=== PATIENT | male | born 1950 | race Caucasian/White ===

== ENCOUNTER → 2016-05-27 | Outpatient (CLI) | payer OTHER ==
[2016-05-27 13:34] LABS: ALT/SGPT 28 U/L (12-78); AST/SGOT 15 U/L (15-37); BLOOD UREA NITROGEN 19 mg/dl (7-18); CALCIUM 9.4 mg/dl (8.5-10.1); CARBON DIOXIDE 28 mmol/L (21-32); CHLORIDE 102 mmol/L (98-107); CREATININE 0.95 mg/dl (0.60-1.40); GLUCOSE 236 mg/dl (70-99); POTASSIUM 4.3 mmol/L (3.5-5.1); SODIUM 140 mmol/L (136-145)
[2016-05-27 13:36] LABS: CHOLESTEROL 135 mg/dl (0-200); HDL CHOLESTEROL 45 mg/dl; LDL CHOLESTEROL CALCULATED 58 mg/dl; TRIGLYCERIDES 159 mg/dl (0-150); VERY LOW DENSITY LIPOPROT CALC 32 mg/dl
[2016-05-27 13:41] LABS: ESTIMATED AVERAGE GLUCOSE 214 mg/dl; HA1C FLAG Normal (Normal)
[2016-05-27 13:43] LABS: RATIO 7.7 mcg/mg (0-30.0)
== END ==
LOC: C.LABPVFM 08:33
PROVIDERS: ATTEND Internal Medicine
DX: E11.9 Type 2 diabetes mellitus without complications (principal); E78.5 Hyperlipidemia, unspecified

== ENCOUNTER → 2016-09-06 | Outpatient (CLI) | payer OTHER ==
[2016-09-06 13:35] LABS: ESTIMATED AVERAGE GLUCOSE 160 mg/dl; HA1C FLAG Normal (Normal)
[2016-09-06 13:50] LABS: BLOOD UREA NITROGEN 16 mg/dl (7-18); BUN/CREATININE RATIO 15.5 (10-20); CARBON DIOXIDE 29 mmol/L (21-32); CHLORIDE 104 mmol/L (98-107); GLUCOSE 195 mg/dl (70-99); POTASSIUM 4.6 mmol/L (3.5-5.1); SODIUM 140 mmol/L (136-145)
[2016-09-06 13:56] LABS: CALCIUM 10.1 mg/dl (8.5-10.1)
== END ==
LOC: C.LABPVFM 10:28
PROVIDERS: ATTEND Nurse Practitioner Family
DX: E11.65 Type 2 diabetes mellitus with hyperglycemia (principal)

== ENCOUNTER → 2016-12-26 | Outpatient (CLI) | payer OTHER ==
[2016-12-26 12:58] LABS: ESTIMATED AVERAGE GLUCOSE 140 mg/dl; HA1C FLAG Normal (Normal)
[2016-12-26 13:55] LABS: ALT/SGPT 28 U/L (12-78); AST/SGOT 15 U/L (15-37); BLOOD UREA NITROGEN 18 mg/dl (7-18); BUN/CREATININE RATIO 19.5 (10-20); CALCIUM 9.4 mg/dl (8.5-10.1); CARBON DIOXIDE 28 mmol/L (21-32); CHLORIDE 105 mmol/L (98-107); CHOLESTEROL 125 mg/dl (0-200); CREATININE 0.91 mg/dl (0.60-1.40); GLUCOSE 157 mg/dl (70-99); POTASSIUM 4.2 mmol/L (3.5-5.1); SODIUM 139 mmol/L (136-145); TRIGLYCERIDES 137 mg/dl (0-150); VERY LOW DENSITY LIPOPROT CALC 27 mg/dl
[2016-12-26 13:58] LABS: CHOLESTEROL/HDL RATIO 2.8; HDL CHOLESTEROL 44 mg/dl; LDL CHOLESTEROL CALCULATED 54 mg/dl
== END | disposition home or self-care (01) ==
LOC: C.LABPVFM 09:21
PROVIDERS: ATTEND Internal Medicine
DX: E78.5 Hyperlipidemia, unspecified (principal); I10 Essential (primary) hypertension; E11.9 Type 2 diabetes mellitus without complications

== ENCOUNTER → 2017-05-21 | Outpatient (CLI) | payer OTHER ==
[2017-05-21 12:58] LABS: HEMOGLOBIN A1C 6.7 % (4.5-5.6)
== END | disposition home or self-care (01) ==
LOC: C.LABPVFM 08:58
PROVIDERS: ATTEND Nurse Practitioner Family
DX: E11.9 Type 2 diabetes mellitus without complications (principal)

== ENCOUNTER 2018-08-30 16:06 | Inpatient (IN) ==
[2018-08-30] MEDS ORDERED: SODIUM CHLORIDE 0.9% 1000ML 1,000 ML IV ONE (16:18)
--- NOTE | 2018-08-30 16:30 | XRay Report ---
XR chest 1V portable CLINICAL HISTORY: Leukocytosis. COMPARISON STUDY: No previous studies for comparison. FINDINGS: Moderate elevation of the right hemidiaphragm is noted. Right basilar opacity favors atelec tasis. Gas-filled loops of bowel projecting of the right hemidiaphragm are noted. There is no evidenc e for pulmonary edema. Cardiac size is normal. There is no pneumothorax or pleural effusion. IMPRESSION: 1. No acute cardiopulmonary findings. 2. Moderate elevation of the right hemidiaphragm with right basilar opacity that favors atelectasis. Electronically signed by: Rufino Peñaloza M.D. 08/30/2018 4:29 PM
[2018-08-30 16:54] LABS: Hematocrit (blood only) 39.9 % (42-52); Hemoglobin 14.2 g/dL (14.0-18.0); Mean Corpuscular Hgb Conc 35.6 g/dL (32-36); Mean Corpuscular Volume 89.3 fL (80-100); Mean Platelet Volume 9.6 fL (7.4-10.4); Platelet Count 428 K/uL (130-400); RDW Coefficient of Variation 13.9 % (11.5-14.5); RDW Standard Deviation 45.3 fL (36.4-46.3); Red Blood Count 4.47 M/uL (4.7-6.1); White Blood Count 22.18 K/uL (4.8-10.8)
[2018-08-30 17:13] LABS: Albumin Level 3.7 gm/dl (3.4-5.0); BUN Creatinine Ratio 14.9 (10-20); Calcium 9.3 mg/dl (8.5-10.1); Creatinine Clr Calc Pharmacy 87.2 ml/min; Est GFR (African American) 91.9; Est GFR (Non-African American) 79.3; Potassium 4.4 mmol/L (3.5-5.1)
[2018-08-30 17:14] LABS: INR 1.1 (0.9-1.1); Prothrombin Time 10.8 Seconds (9.0-12.0)
[2018-08-30 17:15] LABS: Bilirubin,Total 0.6 mg/dl (0.2-1); Globulin 3.6 gm/dl (2.5-4.0); Total Protein 7.3 gm/dl (6.4-8.2)
[2018-08-30] MEDS ORDERED: IOVERSOL 100ml IV PRN (17:26)
[2018-08-30 17:41] LABS: Basophils # (auto) 0.02 K/uL (0-0.2); Basophils % (auto) 0.1 %; Eosinophils # (auto) 0.03 K/uL (0-0.5); Eosinophils % (auto) 0.1 %; Immature Granulocytes # (auto) 0.14 K/uL (0.00-0.02); Immature Granulocytes % (auto) 0.6 %; Lymphocytes # (auto) 13.88 K/uL (1.2-3.4); Lymphocytes % (auto) 62.6 %; Monocytes # (auto) 1.41 K/uL (0.11-0.59); Monocytes % (auto) 6.4 %; Neutrophils % (auto) 30.2 %
--- NOTE | 2018-08-30 17:42 | CT Scan Report ---
CT soft tissue neck w con CLINICAL HISTORY: 67 years-old Male presenting with ? abscess r lower jaw. recent ct wbc 22k jaw pain . TECHNIQUE: Multidetector CT of the neck was performed after the administration of intravenous contras t. IV contrast: 94 mL of Optiray 320. One or more dose lowering techniques were used consistent with the principles of ALARA (as low as reasonably achievable), including automatic exposure control, mA o r kV adjustment to individual patient size, and/or use of iterative reconstruction. COMPARISON: 08/23/2018. CT DOSE (mGy.cm): The estimated cumulative dose is 578.09 mGy.cm. FINDINGS: Dermatology Procedural Physician topogram: Unremarkable. Numerous mandibular and maxillary teeth are absent prominent dental caries in the residual right sylvester ibular canine. Dental caries also noted elsewhere most prominently at the right maxillary molar. Priyanka apical lucency may be present at the right maxillary molar versus bony dehiscence of the right maxill lo sinus floor. Associated mild mucosal thickening in the right maxillary sinus as on prior exam. No cortical erosion of the mandible or maxilla. No significant hyperemia of the buccal mucosa. No evide nce of abscess. Superficial soft tissues of the face within normal limits. Parotid, submandibular, an d thyroid glands normal. Scattered cervical lymph nodes measuring up to 1.6 cm in axial long axis on the right and 1.8 cm on the left. This is similar to prior exam and has allegedly enlarged by CT size criteria. Vasculature patent. Mild atherosclerosis. Limited intracranial evaluation demonstrates nor mal brain parenchyma and atherosclerosis of the cavernous segments of internal carotid arteries. Orbi ts normal. Skull base intact. Degenerative changes of the cervical spine. Lung apices clear. No suspi cious nodular soft tissue enhancement along the aerodigestive tract, which is patent. IMPRESSION: 1. No odontogenic abscess. No buccal mucosal hyperemia. 2. Numerous dental extractions with dental caries of residual teeth most prominently in the right ma ndibular canine and right maxillary molar. 3. Bilateral cervical lymphadenopathy. This could be reactive though an underlying lymphoproliferati ve disease or metastatic disease cannot be excluded. Follow-up is advised. Electronically signed by: Braden Ervin M.D. 08/30/2018 5:41 PM
[2018-08-30 18:53] LABS: Appearance Urine Clear (Clear); Bilirubin Urine Negative (Negative); Blood Urine Negative (Negative); Color Urine Yellow; Glucose Urine UA Negative (Negative); Ketones Urine Trace (Negative); Leukocyte Esterase Urine Negative (Negative); Nitrite Urine Negative (Negative); Protein Urine Negative (Negative); Specific Gravity Urine 1.021 (1.000-1.030); Urobilinogen Urine Negative (Negative); pH Urine 5.5 (4.5-7.5)
[2018-08-30] MEDS ORDERED: cefTRIAXone SODIUM 2,000 MG in DEXTROSE 5% 50 ML IV STA (18:59)
[2018-08-30] MEDS ORDERED: metroNIDAZOLE 500 MG/100 ML BAG IV STA (20:33)
--- NOTE | 2018-08-30 22:08 | History & Physical Report ---
Date of Service August 30, 2018 Assessment & Plan (1) Bacteremia: 67-year-old male with past medical history of diabetes, hypertension, malignant melanoma presents with positive blood cultures Bacteremia in the setting of dental caries Cultures grew coag negative staph, presents with white count, has been on clindamycin for 1 week Patient is hemodynamically stable, negative lactate Dental caries are likely source Treating with IV Rocephin/Flagyl. Patient has a penicillin allergy. 2 large-bore IVs, received 1 L bolus in the ED, run normal saline at 125 cc/h Avoid antihypertensives for now Dental caries, thrush Would recommend evaluation by oral surgeon Keep patient n.p.o., would recommend soft food diet Magic mouthwash and nystatin swish and swallow Diabetes Continue insulin Hold metformin Hypertension Hold home lisinopril, hydrochlorothiazide, atenolol Hyperlipidemia Hold simvastatin History of malignant melanoma Follow-up bilateral cervical lymphadenopathy seen on neck CT, reactive versus metastasis? DVT prophylaxis Holding anticoagulation in case of oral surgery SCDs/ambulate CODE STATUS Full (2) Diabetes: (3) Hyperlipidemia: (4) HTN (hypertension): (5) Personal history of malignant melanoma of skin: (6) Acute gingivitis: History of Present Illness Primary Care Provider: Cristofer oRck MD 67-year-old male history of hypertension, hyperlipidemia, diabetes and malignant melanoma presents from his primary care office with positive blood cultures. Patient was seen in our ED last 08/23/2018 for concern for sepsis related to dental abscesses. Patient was discharged on clindamycin. Blood cultures were obtained prior to leaving the ED. Patient's blood cultures grew coag negative staph x2 on 08/30/2018. Patient states that he has been feeling quite good over the past week since being started on the antibiotics. He has been using Magic mouthwash and nystatin swish and swallow for oral lesions. He endorses a soft foods diet. Reports less oral pain. Today he does not have any fevers, chills or fatigue. He denies any shortness of breath, cough or dysuria. Patient denies any wounds on his feet. Patient reports normal bowel movement. Constitutional; no fevers, chills, night sweats CV; no chest pain, no palpitations, no shortness of breath Abdomen; no abdominal pain, no nausea/vomiting/diarrhea ; no dysuria Skin; no wounds Allergies Allergy/AdvReac Type Severity Reaction Status Date / Time Penicillins Allergy Hives Verified 08/30/18 17:05 grass pollen AdvReac Watery Eye Verified 08/30/18 17:05 dust AdvReac Watery Eye Uncoded 08/30/18 17:05 Home Medications Home Medications Medication Instructions Recorded Confirmed Type ascorbic acid (vitamin C) 500 mg 2 cap PO QAM cap 08/23/18 08/30/18 History capsule atenolol 100 mg tablet 100 mg PO QAM #90 tab 08/23/18 08/30/18 History calcium carbonate [Tums] 600 mg PO HS 08/23/18 08/30/18 History cholecalciferol (vitamin D3) 1,000 unit PO QAM 08/23/18 08/30/18 History [Vitamin D3] clindamycin HCl 300 mg PO TID 10 Days #30 cap 08/23/18 08/30/18 Rx cyanocobalamin (vit B-12) 1,000 100 mcg PO QAM tab 08/23/18 08/30/18 History mcg tablet glimepiride 1 mg tablet 2 mg PO HS #270 tab 08/23/18 08/30/18 History hydrochlorothiazide 25 mg tablet 25 mg PO QAM #90 tab 08/23/18 08/30/18 History insulin degludec (U-100) 100 10 unit SUBCUT HS #1 ml 08/23/18 08/30/18 History unit/mL (3 mL) subcutaneous pen lisinopril 40 mg tablet 40 mg PO QAM #90 tab 08/23/18 08/30/18 History metformin 1,000 mg tablet 1,000 mg PO BIDM #180 tab 08/23/18 08/30/18 History multivitamin tablet 1 tab PO QAM 08/23/18 08/30/18 History simvastatin 10 mg tablet 10 mg PO HS #90 tab 08/23/18 08/30/18 History nystatin 100,000 unit/mL oral 1 ml PO QID #250 ml 08/26/18 08/30/18 Rx suspension acetaminophen [Tylenol Extra 1,000 mg PO TID 08/30/18 08/30/18 History Strength] Past Med/Surg History Medical History Melanoma Diabetes Surgical History No pertinent past surgical history Family History Other Family history non-contributory Social History Preferred Language: Angolan Communication Ability: Effective Sr. Logistics Analyst Required: No Beliefs That Will Affect Care: Congregation Congregation Beliefs: Mennonite marital status: Current Living Situation: Spouse and Family current occupational status: retired Other Information That Helps Us Care for You: No Feels Safe at Home: Yes Safety Concerns: Feels Safe At This Time Smoking Status: Never smoker Do You Dip or Chew Tobacco: No Hx Alcohol Use: No Hx Substance Use: No Review of Systems Review of Systems: All systems reviewed & are unremarkable except as noted in HPI & below Physical Exam Constitutional: WD/WN, vitals as above Eyes: PERRL, conjunctivae normal, anicteric sclerae ENMT: Nose: no external nose abnormality, no nasal mucous membrane abnormality and no septum abnormality Poor dentition, numerous missing teeth, visible caries, gums are red beefy and inflamed Neck: trachea midline, no thyromegaly Respiratory: normal respiratory effort, lungs clear to auscultation Cardiovascular: RRR, no murmur, no edema Gastrointestinal (Abdomen): normal bowel sounds, soft, nontender, no hepatosplenomegaly Musculoskeletal: no cyanosis or clubbing, extremities motor strength 5/5 Skin: no rashes, warm and dry Neurologic: PERRL, EOMI, accommodation nl, no face palsy, no dysarthria Psychiatric: A+Ox3, euthymic affect Results & Data Vital Signs (Past 12 Hours) Vital Signs Temp Pulse Resp BP BP Pulse Ox 08/30/18 20:31 66 20 151/92 H 94 08/30/18 20:30 61 18 93 08/30/18 20:01 60 14 97 08/30/18 20:00 60 17 124/74 94 08/30/18 19:42 64 14 96 08/30/18 19:01 61 16 136/71 96 08/30/18 19:00 57 L 16 96 08/30/18 18:43 56 L 15 97 08/30/18 18:42 57 L 15 147/80 H 97 08/30/18 18:41 56 L 19 06/14/19 18:30 64 16 167/107 H 96 08/30/18 18:06 62 15 146/89 H 96 08/30/18 18:02 82 14 08/30/18 18:01 78 17 08/30/18 18:00 77 17 08/30/18 17:42 58 L 12 96 08/30/18 17:16 56 L 17 08/30/18 17:15 63 15 152/91 H 08/30/18 17:00 58 L 19 152/91 H 08/30/18 16:31 59 L 14 97 08/30/18 16:30 58 L 17 131/88 97 08/30/18 16:29 57 L 13 97 08/30/18 16:24 59 L 17 161/90 H 97 08/30/18 16:23 161/90 H 97 08/30/18 16:18 56 L 20 98 08/30/18 16:10 37 C 74 20 142/84 H 100 Code Status & VTE Plan Code Status full VTE Prophylaxis Plan VTE Prophylaxis will be ordered: Yes Supervising Physician Co-Signing Physician Notes Attending addendum: I have physically seen this patient, have supervised the medical residents activities, and agree with the H&P unless as otherwise noted. Assessment and Plan: Coag negative staph bacteremia in 2/2 cultures from 08/26/18- Significantly abnormal dentition/several teeth removed/remaining teeth infected- Received ceftriaxone IV and Flagyl IV in the ED. (Has a penicillin allergy) Bacteria from dental caries would more commonly be strep mutans, but no other obvious source of infection noted. Concern regarding possibility of endocarditis. Order a complete echocardiogram. Patient is not been able to find a dentist or oral surgeon locally. There was discussed with he and his family that he will likely need to go to [facility] to find an oral surgeon participating with his insurance. Thrush- Magic mouthwash and nystatin swish and swallow. Remaining orders and notations as noted. Resident Activity Tracking Resident Involvement: Resident Care Provided Care Provided: Adult Hospital Medicine
--- NOTE | 2018-08-30 22:43 | Emergency Department Note ---
Entered by Salena Beasley acting as a scribe for Forrest Lu DO History of Present Illness General Chief complaint: Referred by Doctor Stated complaint: SODIUN LOW, WHITE BLOOD CELLS HIGH Source: patient and old records reviewed Mode of arrival: wheelchair Limitations: no limitations History of Present Illness Provider complaint: Abnormal labs Onset (ago): hour(s) (today) Pain Consistency: + other (episode) Quality: + other (high white blood cell count, hypokalemia) Relieved By: + none Exacerbated By: + none Associated symptoms: + other (Additional symptoms: right lower jaw soreness. Denies: diarrhea, open sores); no cough, no headaches, no nausea/vomiting and no weakness The patient is a 67 year old male with a history of melanoma and diabetes who presents to the Emergency Room with complaints of an episode of abnormal labs occurring today. The patient reports that he saw Dr. Rock 4 days ago and had blood work performed today. He states that he was told that his white blood cell count was high and that his sodium level was low. He notes that he was subsequently referred to the ED. The patient currently complains of soreness in his right lower jaw, for which he was in the ED a week ago and has been taking Nystatin, Clindamycin, and Tylenol. He states that his jaw soreness has been improving over the past week. He denies any other symptoms, including cough, headache, nausea, vomiting, diarrhea, weakness, and open sores. Per the patient's old records, the patient's neck CT on July 23 showed a large cyst and a large mastoid molar. Home Medications Home Medications Medication Instructions Recorded Confirmed Type ascorbic acid (vitamin C) 500 mg 2 cap PO QAM cap 08/23/18 08/30/18 History capsule atenolol 100 mg tablet 100 mg PO QAM #90 tab 08/23/18 08/30/18 History calcium carbonate [Tums] 600 mg PO HS 08/23/18 08/30/18 History cholecalciferol (vitamin D3) 1,000 unit PO QAM 08/23/18 08/30/18 History [Vitamin D3] clindamycin HCl 300 mg PO TID 10 Days #30 cap 08/23/18 08/30/18 Rx cyanocobalamin (vit B-12) 1,000 100 mcg PO QAM tab 08/23/18 08/30/18 History mcg tablet glimepiride 1 mg tablet 2 mg PO HS #270 tab 08/23/18 08/30/18 History hydrochlorothiazide 25 mg tablet 25 mg PO QAM #90 tab 08/23/18 08/30/18 History insulin degludec (U-100) 100 10 unit SUBCUT HS #1 ml 08/23/18 08/30/18 History unit/mL (3 mL) subcutaneous pen lisinopril 40 mg tablet 40 mg PO QAM #90 tab 08/23/18 08/30/18 History metformin 1,000 mg tablet 1,000 mg PO BIDM #180 tab 08/23/18 08/30/18 History multivitamin tablet 1 tab PO QAM 08/23/18 08/30/18 History simvastatin 10 mg tablet 10 mg PO HS #90 tab 08/23/18 08/30/18 History nystatin 100,000 unit/mL oral 1 ml PO QID #250 ml 08/26/18 08/30/18 Rx suspension acetaminophen [Tylenol Extra 1,000 mg PO TID 08/30/18 08/30/18 History Strength] Allergies Allergy/AdvReac Type Severity Reaction Status Date / Time Penicillins Allergy Hives Verified 08/30/18 17:05 grass pollen AdvReac Watery Eye Verified 08/30/18 17:05 dust AdvReac Watery Eye Uncoded 08/30/18 17:05 Past Med/Surg History Medical History Melanoma Diabetes Surgical History No pertinent past surgical history Family History Other Family history non-contributory Social History Preferred Language: Martiniquais Communication Ability: 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 and A total of 10 systems reviewed and were otherwise negative Physical Exam Vital Signs Vital Signs - 24 hr 08/30/18 16:10 08/30/18 16:18 08/30/18 16:23 Temperature 37 C Temperature Source Oral Sepsis Recent Fever Within 48 Hours No Sepsis Action Taken by Nursing No Action Required Pulse Rate 74 56 L Pulse Rate from SpO2 Sensor Pulse Rhythm Regular Pulse Rhythm [Apical] Regular Pulse Strength Normal Pulse Strength [Apical] Normal Respiratory Rate 20 20 Respiratory Effort / Characteristics Non-Labored Spontaneous Non-Labored Respiratory Depth Normal Normal Respiratory Pattern Regular Regular Blood Pressure 142/84 H Blood Pressure [Left Arm] 161/90 H Blood Pressure Mean 103 Blood Pressure Mean [Left Arm] 113 Blood Pressure Position Sitting Blood Pressure Position [Left Arm] Sitting Pulse Oximetry 100 98 97 Oxygen Delivery Method Room Air Room Air Room Air 08/30/18 16:24 08/30/18 16:29 08/30/18 16:30 Temperature Temperature Source Sepsis Recent Fever Within 48 Hours Sepsis Action Taken by Nursing Pulse Rate 59 L 57 L 58 L Pulse Rate from SpO2 Sensor 55 L 55 L 55 L Pulse Rhythm Pulse Rhythm [Apical] Pulse Strength Pulse Strength [Apical] Respiratory Rate 17 13 17 Respiratory Effort / Characteristics Respiratory Depth Respiratory Pattern Blood Pressure 161/90 H 131/88 Blood Pressure [Left Arm] Blood Pressure Mean 113 102 Blood Pressure Mean [Left Arm] Blood Pressure Position Blood Pressure Position [Left Arm] Pulse Oximetry 97 97 97 Oxygen Delivery Method 08/30/18 16:31 08/30/18 17:00 08/30/18 17:15 Temperature Temperature Source Sepsis Recent Fever Within 48 Hours Sepsis Action Taken by Nursing Pulse Rate 59 L 58 L 63 Pulse Rate from SpO2 Sensor 52 L Pulse Rhythm Pulse Rhythm [Apical] Pulse Strength Pulse Strength [Apical] Respiratory Rate 14 19 15 Respiratory Effort / Characteristics Respiratory Depth Respiratory Pattern Blood Pressure 152/91 H 152/91 H Blood Pressure [Left Arm] Blood Pressure Mean 111 111 Blood Pressure Mean [Left Arm] Blood Pressure Position Blood Pressure Position [Left Arm] Pulse Oximetry 97 Oxygen Delivery Method 08/30/18 17:16 08/30/18 17:42 08/30/18 18:00 Temperature Temperature Source Sepsis Recent Fever Within 48 Hours Sepsis Action Taken by Nursing Pulse Rate 56 L 58 L 77 Pulse Rate from SpO2 Sensor 47 L Pulse Rhythm Pulse Rhythm [Apical] Pulse Strength Pulse Strength [Apical] Respiratory Rate 17 12 17 Respiratory Effort / Characteristics Respiratory Depth Respiratory Pattern Blood Pressure Blood Pressure [Left Arm] Blood Pressure Mean Blood Pressure Mean [Left Arm] Blood Pressure Position Blood Pressure Position [Left Arm] Pulse Oximetry 96 Oxygen Delivery Method 08/30/18 18:01 08/30/18 18:02 08/30/18 18:06 Temperature Temperature Source Sepsis Recent Fever Within 48 Hours Sepsis Action Taken by Nursing Pulse Rate 78 82 62 Pulse Rate from SpO2 Sensor 46 L Pulse Rhythm Pulse Rhythm [Apical] Pulse Strength Pulse Strength [Apical] Respiratory Rate 17 14 15 Respiratory Effort / Characteristics Respiratory Depth Respiratory Pattern Blood Pressure 146/89 H Blood Pressure [Left Arm] Blood Pressure Mean 108 Blood Pressure Mean [Left Arm] Blood Pressure Position Blood Pressure Position [Left Arm] Pulse Oximetry 96 Oxygen Delivery Method 08/30/18 18:30 08/30/18 18:41 08/30/18 18:42 Temperature Temperature Source Sepsis Recent Fever Within 48 Hours Sepsis Action Taken by Nursing Pulse Rate 64 56 L 57 L Pulse Rate from SpO2 Sensor 60 50 L Pulse Rhythm Pulse Rhythm [Apical] Pulse Strength Pulse Strength [Apical] Respiratory Rate 16 19 15 Respiratory Effort / Characteristics Respiratory Depth Respiratory Pattern Blood Pressure 167/107 H 147/80 H Blood Pressure [Left Arm] Blood Pressure Mean 127 102 Blood Pressure Mean [Left Arm] Blood Pressure Position Blood Pressure Position [Left Arm] Pulse Oximetry 96 97 Oxygen Delivery Method 08/30/18 18:43 08/30/18 19:00 08/30/18 19:01 Temperature Temperature Source Sepsis Recent Fever Within 48 Hours Sepsis Action Taken by Nursing Pulse Rate 56 L 57 L 61 Pulse Rate from SpO2 Sensor 49 L 45 L 50 L Pulse Rhythm Pulse Rhythm [Apical] Pulse Strength Pulse Strength [Apical] Respiratory Rate 15 16 16 Respiratory Effort / Characteristics Respiratory Depth Respiratory Pattern Blood Pressure 136/71 Blood Pressure [Left Arm] Blood Pressure Mean 92 Blood Pressure Mean [Left Arm] Blood Pressure Position Blood Pressure Position [Left Arm] Pulse Oximetry 97 96 96 Oxygen Delivery Method 08/30/18 19:42 08/30/18 20:00 08/30/18 20:01 Temperature Temperature Source Sepsis Recent Fever Within 48 Hours Sepsis Action Taken by Nursing Pulse Rate 64 60 60 Pulse Rate from SpO2 Sensor 49 L 51 L 56 L Pulse Rhythm Pulse Rhythm [Apical] Pulse Strength Pulse Strength [Apical] Respiratory Rate 14 17 14 Respiratory Effort / Characteristics Respiratory Depth Respiratory Pattern Blood Pressure 124/74 Blood Pressure [Left Arm] Blood Pressure Mean 90 Blood Pressure Mean [Left Arm] Blood Pressure Position Blood Pressure Position [Left Arm] Pulse Oximetry 96 94 97 Oxygen Delivery Method 08/30/18 20:30 08/30/18 20:31 08/30/18 20:32 Temperature Temperature Source Sepsis Recent Fever Within 48 Hours Sepsis Action Taken by Nursing Pulse Rate 61 66 62 Pulse Rate from SpO2 Sensor 51 L 51 L 52 L Pulse Rhythm Pulse Rhythm [Apical] Pulse Strength Pulse Strength [Apical] Respiratory Rate 18 20 18 Respiratory Effort / Characteristics Respiratory Depth Respiratory Pattern Blood Pressure 151/92 H Blood Pressure [Left Arm] Blood Pressure Mean 111 Blood Pressure Mean [Left Arm] Blood Pressure Position Blood Pressure Position [Left Arm] Pulse Oximetry 93 94 97 Oxygen Delivery Method 08/30/18 21:00 08/30/18 21:01 08/30/18 21:13 Temperature Temperature Source Sepsis Recent Fever Within 48 Hours Sepsis Action Taken by Nursing Pulse Rate 63 61 Pulse Rate from SpO2 Sensor 46 L 46 L Pulse Rhythm Pulse Rhythm [Apical] Pulse Strength Pulse Strength [Apical] Respiratory Rate 14 12 Respiratory Effort / Characteristics Respiratory Depth Respiratory Pattern Regular Blood Pressure 130/90 Blood Pressure [Left Arm] Blood Pressure Mean 103 Blood Pressure Mean [Left Arm] Blood Pressure Position Blood Pressure Position [Left Arm] Pulse Oximetry 97 97 Oxygen Delivery Method Room Air 08/30/18 21:30 08/30/18 21:31 08/30/18 22:00 Temperature Temperature Source Sepsis Recent Fever Within 48 Hours Sepsis Action Taken by Nursing Pulse Rate 56 L 58 L 62 Pulse Rate from SpO2 Sensor 56 L 57 L 48 L Pulse Rhythm Pulse Rhythm [Apical] Pulse Strength Pulse Strength [Apical] Respiratory Rate 19 21 14 Respiratory Effort / Characteristics Respiratory Depth Respiratory Pattern Blood Pressure 114/76 Blood Pressure [Left Arm] Blood Pressure Mean 88 Blood Pressure Mean [Left Arm] Blood Pressure Position Blood Pressure Position [Left Arm] Pulse Oximetry 96 96 96 Oxygen Delivery Method 08/30/18 22:01 08/30/18 22:30 Temperature Temperature Source Sepsis Recent Fever Within 48 Hours Sepsis Action Taken by Nursing Pulse Rate 60 55 L Pulse Rate from SpO2 Sensor 52 L 55 L Pulse Rhythm Pulse Rhythm [Apical] Pulse Strength Pulse Strength [Apical] Respiratory Rate 14 17 Respiratory Effort / Characteristics Respiratory Depth Respiratory Pattern Blood Pressure 139/84 103/76 Blood Pressure [Left Arm] Blood Pressure Mean 102 85 Blood Pressure Mean [Left Arm] Blood Pressure Position Blood Pressure Position [Left Arm] Pulse Oximetry 96 96 Oxygen Delivery Method GENERAL: sitting up in bed, alert, well appearing, well nourished, no distress, non-toxic EYE EXAM: normal conjunctiva OROPHARYNX: no exudate, lips, buccal mucosa, and tongue normal and mucous membranes are moist, poor dentition, tenderness of the base of the right jaw, no fullness, no fluctuance, mild erythema NECK: supple, no nuchal rigidity, no adenopathy, non-tender LUNGS: Clear to auscultation. Normal chest wall mechanics HEART: no murmurs, S1 normal and S2 normal ABDOMEN: abdomen soft, non-tender, normo-active bowel sounds, no masses, no rebound or guarding. BACK: Back is symmetrical on inspection and there is no deformity, no midline tenderness, no CVA tenderness. SKIN: no rashes and no bruising UPPER EXTREMITIES: upper extremities are grossly normal. LOWER EXTREMITIES: No pitting edema. NEURO EXAM: Normal sensorium, cranial nerves II-XII grossly intact, normal speech, no gross weakness of arms, no gross weakness of legs. Course ED COURSE: Vital signs were reviewed and showed situational hypertension. The patients medical record was reviewed The above diagnostic studies were performed and reviewed. ED treatments and interventions as stated above. 1614: The patient was evaluated in room C7. A complete history and physical examination was performed. 1908: Upon reevaluation, the patient is resting. I discussed my findings with the patient and he understands and agrees with the treatment plan. Based on the patients age, coexisting illnesses, exam and lab findings the decision to treat as an inpatient was made. The patient remained stable while under my care. The patient will be evaluated for further management. Administered Medications Ioversol (Optiray 320 100ml) 94 ml IV ONCE PRN PRN Reason: Interaction Checking Stop: 09/03/18 17:25 Last Admin: 08/30/18 17:27 Dose: 94 ml Documented by: [id number] Discontinued Medications Sodium Chloride (Nss 1000ml) 1,000 mls @ 999 mls/hr IV .Q1H1M ONE Stop: 08/30/18 17:18 Last Infusion: 08/30/18 18:17 Dose: 0 mls/hr Documented by: [id number] Admin: 08/30/18 17:15 Dose: 999 mls/hr Documented by: [id number] Ceftriaxone Sodium 2,000 mg/ (Dextrose) 70 mls @ 100 mls/hr IV NOW STA Stop: 08/30/18 19:40 Last Infusion: 08/30/18 20:30 Dose: 0 mls/hr Documented by: [id number] Admin: 08/30/18 19:41 Dose: 100 mls/hr Documented by: [id number] Metronidazole (Flagyl) 500 mg in 100 mls @ 100 mls/hr IV NOW STA Stop: 08/30/18 21:32 Last Infusion: 08/30/18 21:53 Dose: 0 mls/hr Documented by: [id number] Admin: 08/30/18 20:58 Dose: 100 mls/hr Documented by: [id number] Medical Decision Making Differential Diagnosis Differential diagnosis: Etiologies such as metabolic, infection, hypo/hyperglycemia, electrolyte abnormalities, cardiac sources, intracerebral event, toxicologic, neurologic, as well as others were entertained. Medical Records Attestation: I reviewed the patient's medical records. Home Medications Current Medication List: was personally reviewed by me Laboratory Data Attestation: I reviewed the patient's lab results. Result diagrams: 08/30/18 16:42 08/30/18 16:42 Lab Results 08/30/18 08/30/18 08/30/18 Range/Units 16:42 16:42 16:42 WBC 22.18 H (4.8-10.8) K/uL RBC 4.47 L (4.7-6.1) M/uL Hgb 14.2 (14.0-18.0) g/dL Hct 39.9 L (42-52) % MCV 89.3 (80-100) fL MCH 31.8 (25-34) pg MCHC 35.6 (32-36) g/dL RDW Std Deviation 45.3 (36.4-46.3) fL RDW Coeff of Jackie 13.9 (11.5-14.5) % Plt Count 428 H (130-400) K/uL MPV 9.6 (7.4-10.4) fL Immature Gran % (Auto) 0.6 % Neut % (Auto) 30.2 % Lymph % (Auto) 62.6 % [place] % (Auto) 6.4 % Eos % (Auto) 0.1 % Baso % (Auto) 0.1 % Immature Gran # (Auto) 0.14 H (0.00-0.02) K/uL Neut # (Auto) 6.70 H (1.4-6.5) K/uL Lymph # (Auto) 13.88 H (1.2-3.4) K/uL [place] # (Auto) 1.41 H (0.11-0.59) K/uL Eos # (Auto) 0.03 (0-0.5) K/uL Baso # (Auto) 0.02 (0-0.2) K/uL PT 10.8 (9.0-12.0) Seconds INR 1.1 (0.9-1.1) Sodium 129 L (136-145) mmol/L Potassium 4.4 (3.5-5.1) mmol/L Chloride 96 L (98-107) mmol/L Carbon Dioxide 23 (21-32) mmol/L Anion Gap 10.0 (3-11) BUN 14 (7-18) mg/dl Creatinine 0.97 (0.6-1.4) mg/dl Est Cr Clr Drug Dosing 87.2 ml/min Est GFR ( Amer) 91.9 Est GFR (Non-Af Amer) 79.3 BUN/Creatinine Ratio 14.9 (10-20) Glucose 100 H (70-99) mg/dl POC Lactic Acid Kris (0.90-1.70) mmol/L Calcium 9.3 (8.5-10.1) mg/dl Total Bilirubin 0.6 (0.2-1) mg/dl AST 20 (15-37) U/L ALT 30 (12-78) U/L Alkaline Phosphatase 96 (45-117) U/L Total Protein 7.3 (6.4-8.2) gm/dl Albumin 3.7 (3.4-5.0) gm/dl Globulin 3.6 (2.5-4.0) gm/dl Albumin/Globulin Ratio 1.0 (0.9-2) Lipase 100 (73-393) U/L Urine Color Urine Appearance (Clear) Urine pH (4.5-7.5) Ur Specific [place] (1.000-1.030) Urine Protein (Negative) Urine Glucose (UA) (Negative) Urine Ketones (Negative) Urine Blood (Negative) Urine Nitrite (Negative) Urine Bilirubin (Negative) Urine Urobilinogen (Negative) Ur Leukocyte Esterase (Negative) Hepatitis C Ab Screen (Neg) 08/30/18 08/30/18 08/30/18 Range/Units 16:43 16:50 18:45 WBC (4.8-10.8) K/uL RBC (4.7-6.1) M/uL Hgb (14.0-18.0) g/dL Hct (42-52) % MCV (80-100) fL MCH (25-34) pg MCHC (32-36) g/dL RDW Std Deviation (36.4-46.3) fL RDW Coeff of Jackie (11.5-14.5) % Plt Count (130-400) K/uL MPV (7.4-10.4) fL Immature Gran % (Auto) % Neut % (Auto) % Lymph % (Auto) % [place] % (Auto) % Eos % (Auto) % Baso % (Auto) % Immature Gran # (Auto) (0.00-0.02) K/uL Neut # (Auto) (1.4-6.5) K/uL Lymph # (Auto) (1.2-3.4) K/uL [place] # (Auto) (0.11-0.59) K/uL Eos # (Auto) (0-0.5) K/uL Baso # (Auto) (0-0.2) K/uL PT (9.0-12.0) Seconds INR (0.9-1.1) Sodium (136-145) mmol/L Potassium (3.5-5.1) mmol/L Chloride (98-107) mmol/L Carbon Dioxide (21-32) mmol/L Anion Gap (3-11) BUN (7-18) mg/dl Creatinine (0.6-1.4) mg/dl Est Cr Clr Drug Dosing ml/min Est GFR ( Amer) Est GFR (Non-Af Amer) BUN/Creatinine Ratio (10-20) Glucose (70-99) mg/dl POC Lactic Acid Kris 1.22 (0.90-1.70) mmol/L Calcium (8.5-10.1) mg/dl Total Bilirubin (0.2-1) mg/dl AST (15-37) U/L ALT (12-78) U/L Alkaline Phosphatase (45-117) U/L Total Protein (6.4-8.2) gm/dl Albumin (3.4-5.0) gm/dl Globulin (2.5-4.0) gm/dl Albumin/Globulin Ratio (0.9-2) Lipase (73-393) U/L Urine Color Yellow Urine Appearance Clear (Clear) Urine pH 5.5 (4.5-7.5) Ur Specific [place] 1.021 (1.000-1.030) Urine Protein Negative (Negative) Urine Glucose (UA) Negative (Negative) Urine Ketones Trace H (Negative) Urine Blood Negative (Negative) Urine Nitrite Negative (Negative) Urine Bilirubin Negative (Negative) Urine Urobilinogen Negative (Negative) Ur Leukocyte Esterase Negative (Negative) Hepatitis C Ab Screen Neg (Neg) Imaging Data Radiologist's Impression: Radiology results as stated below per my review and the radiologist's interpretation: XR chest 1V portable CLINICAL HISTORY: Leukocytosis. COMPARISON STUDY: No previous studies for comparison. FINDINGS: Moderate elevation of the right hemidiaphragm is noted. Right basilar opacity favors atelectasis. Gas-filled loops of bowel projecting of the right hemidiaphragm are noted. There is no evidence for pulmonary edema. Cardiac size is normal. There is no pneumothorax or pleural effusion. IMPRESSION: 1. No acute cardiopulmonary findings. 2. Moderate elevation of the right hemidiaphragm with right basilar opacity that favors atelectasis. Electronically signed by: Rufino Peñaloza M.D. 08/30/2018 4:[address] soft tissue neck w con CLINICAL HISTORY: 67 years-old Male presenting with ? abscess r lower jaw. recent ct wbc 22k jaw pain. TECHNIQUE: Multidetector CT of the neck was performed after the administration of intravenous contrast. IV contrast: 94 mL of Optiray 320. One or more dose lowering techniques were used consistent with the principles of ALARA (as low as reasonably achievable), including automatic exposure control, mA or kV adjustment to individual patient size, and/or use of iterative reconstruction. COMPARISON: 08/23/2018. CT DOSE (mGy.cm): The estimated cumulative dose is 578.09 mGy.cm. FINDINGS: Manager Lan topogram: Unremarkable. Numerous mandibular and maxillary teeth are absent prominent dental caries in the residual right mandibular canine. Dental caries also noted elsewhere most prominently at the right maxillary molar. Periapical lucency may be present at the right maxillary molar versus bony dehiscence of the right maxillary sinus floor. Associated mild mucosal thickening in the right maxillary sinus as on prior exam. No cortical erosion of the mandible or maxilla. No significant hyperemia of the buccal mucosa. No evidence of abscess. Superficial soft tissues of the face within normal limits. Parotid, submandibular, and thyroid glands normal. Scattered cervical lymph nodes measuring up to 1.6 cm in axial long axis on the right and 1.8 cm on the left. This is similar to prior exam and has allegedly enlarged by CT size criteria. Vasculature patent. Mild atherosclerosis. Limited intracranial evaluation demonstrates normal brain parenchyma and atherosclerosis of the cavernous segments of internal carotid arteries. Orbits normal. Skull base intact. Degenerative changes of the cervical spine. Lung apices clear. No suspicious nodular soft tissue enhancement along the aerodigestive tract, which is patent. IMPRESSION: 1. No odontogenic abscess. No buccal mucosal hyperemia. 2. Numerous dental extractions with dental caries of residual teeth most p rominently in the right mandibular canine and right maxillary molar. 3. Bilateral cervical lymphadenopathy. This could be reactive though an underlying lymphoproliferative disease or metastatic disease cannot be excluded. Follow-up is advised. Electronically signed by: Braden Ervin M.D. 08/30/2018 5:41 PM Blood Pressure Blood Pressure Findings: Elevated blood pressure Blood Pressure Disposition: elevated BP felt to be situational MDM Narrative Patient is a 67-year-old male who presents the ER for elevated white count and slightly low sodium. She was seen here earlier in the week for right jaw pain. He was discharged following blood cultures which eventually came back to which were positive at 40 hours. He was referred back into the ER. IV was established and blood work was obtained. Labs show leukocytosis 22,000. No significant anemia. BMP with mild hyponatremia. LFTs bilirubin and lipase is unremarkable. UA was negative. Blood cultures were reobtained. I did repeat the soft tissue of the neck. He had no complaints on his evaluation. Chest x- ray was unremarkable. Question if he has endocarditis. He was covered with 2 g of IV Rocephin and IV fluids. Also given a dose of Flagyl to cover anaerobes as he has dental pain although unlikely with his blood cultures. Discussed with the hospitalist and patient was minute for further work-up. Impression & Plan Bacteremia, Leukocytosis, Positive blood cultures Discharge Plan Visit Data Chief Complaint: Referred by Doctor Stated Complaint: SODIUN LOW, WHITE BLOOD CELLS HIGH ED Provider: Forrest Lu Discharge Problem: Bacteremia, Leukocytosis, Positive blood cultures Patient Disposition: Admitted As Inpatient Forms Stand Alone Forms: My [facility] Prescriptions Prescriptions: No Action lisinopril 40 mg tablet 40 mg PO QAM Qty: 90 RF: 0 hydrochlorothiazide 25 mg tablet 25 mg PO QAM Qty: 90 RF: 0 metformin 1,000 mg tablet 1,000 mg PO BIDM Qty: 180 RF: 0 simvastatin 10 mg tablet 10 mg PO HS Qty: 90 RF: 0 atenolol 100 mg tablet 100 mg PO QAM Qty: 90 RF: 0 Tresiba FlexTouch U-100 100 unit/mL (3 mL) insulin pen 10 unit subcut HS Qty: 1 RF: 0 glimepiride 1 mg tablet 2 mg PO HS Qty: 270 RF: 0 cyanocobalamin (vitamin B-12) 1,000 mcg tablet 100 mcg PO QAM RF: 0 ascorbic acid (vitamin C) 500 mg capsule 2 cap PO QAM RF: 0 multivitamin [Daily Multi-Vitamin] tablet 1 tab PO QAM RF: 0 nystatin 100,000 unit/mL suspension 1 ml PO QID Qty: 250 RF: 0 acetaminophen [Tylenol Extra Strength] 500 mg Tablet 1,000 mg PO TID RF: 0 calcium carbonate [Tums] 300 mg (750 mg) Tablet,Chewable 600 mg PO HS RF: 0 cholecalciferol (vitamin D3) [Vitamin D3] 1,000 unit Capsule 1,000 unit PO QAM RF: 0 clindamycin HCl 300 mg capsule 300 mg PO TID 10 Days Qty: 30 RF: 0 Referrals Referrals: Cristofer Rock MD [Primary Care Provider] - The daquanibe's documentation has been prepared under my direction and personally reviewed by me in its entirety. I confirm that the note above accurately reflects all work, treatment, procedures, and medical decision making performed by me.
[2018-08-30] MEDS ORDERED: ACETAMINOPHEN 325 MG TAB PO PRN (23:17)
[2018-08-30] MEDS ORDERED: ONDANSETRON INJ 2 MG/ML 2 ML VIAL IV PRN (23:17)
[2018-08-30] MEDS ORDERED: DEXAMETHASONE CONC 3.75 MG, NYSTATIN 30 ML, DiphenhydrAMINE Syrup 300 MG, ORA-SWEET SYR... PO PRN (23:17)
[2018-08-30] MEDS ORDERED: POLYETHYLENE (MIRALAX) 17 GM PACK PO PRN (23:17)
[2018-08-30] MEDS ORDERED: GLUCOSE 40% GEL 15 GM TUBE PO PRN (23:30)
[2018-08-30] MEDS ORDERED: GLUCOSE 10 TABS/TUBE PO PRN (23:30)
[2018-08-30] MEDS ORDERED: DEXTROSE 50% 50 ML SYRINGE IV PRN (23:30)
[2018-08-30] MEDS ORDERED: GLUCAGON FOR INJ 1 MG VIAL SQ PRN (23:30)
[2018-08-30] MEDS ORDERED: CARBOHYDRATES FOR HYPOGLYCEMIA PO PRN (23:30)
[2018-08-31] MEDS: NYSTATIN SUSP 500,000 U/5 ML UDC PO SCH ×5 (00:35→20:36)
--- NOTE | 2018-08-31 01:02 | History & Physical Report ---
Date of Service August 31, 2018 Assessment & Plan (1) Bacteremia: 67-year-old male with past medical history of diabetes, hypertension, malignant melanoma presents with positive blood cultures Bacteremia in the setting of dental caries Cultures grew coag negative staph, presents with white count, has been on clindamycin for 1 week Patient is hemodynamically stable, negative lactate Dental caries are likely source Obtain echo Treating with IV Rocephin/Flagyl. Patient has a penicillin allergy. 2 large-bore IVs, received 1 L bolus in the ED, run normal saline at 125 cc/h Avoid antihypertensives for now Dental caries, thrush Would recommend evaluation by oral surgeon Keep patient n.p.o., would recommend soft food diet Magic mouthwash and nystatin swish and swallow Diabetes Continue insulin Hold metformin Hypertension Hold home lisinopril, hydrochlorothiazide, atenolol Hyperlipidemia Hold simvastatin History of malignant melanoma Follow-up bilateral cervical lymphadenopathy seen on neck CT, reactive versus metastasis? DVT prophylaxis Holding anticoagulation in case of oral surgery SCDs/ambulate CODE STATUS Full (2) Diabetes: (3) Hyperlipidemia: (4) HTN (hypertension): (5) Personal history of malignant melanoma of skin: (6) Acute gingivitis: History of Present Illness Primary Care Provider: Cristofer Rock MD 67-year-old male history of hypertension, hyperlipidemia, diabetes and malignant melanoma presents from his primary care office with positive blood cultures. Patient was seen in our ED last 08/23/2018 for concern for sepsis related to dental abscesses. Patient was discharged on clindamycin. Blood cultures were obtained prior to leaving the ED. Patient's blood cultures grew coag negative staph x2 on 08/30/2018. Patient states that he has been feeling quite good over the past week since being started on the antibiotics. He has been using Magic mouthwash and nystatin swish and swallow for oral lesions. He endorses a soft foods diet. Reports less oral pain. Today he does not have any fevers, chills or fatigue. He denies any shortness of breath, cough or dysuria. Patient denies any wounds on his feet. Patient reports normal bowel movement. Constitutional; no fevers, chills, night sweats CV; no chest pain, no palpitations, no shortness of breath Abdomen; no abdominal pain, no nausea/vomiting/diarrhea ; no dysuria Skin; no wounds Allergies Allergy/AdvReac Type Severity Reaction Status Date / Time Penicillins Allergy Hives Verified 08/30/18 17:05 grass pollen AdvReac Watery Eye Verified 08/30/18 17:05 dust AdvReac Watery Eye Uncoded 08/30/18 17:05 Home Medications Home Medications Medication Instructions Recorded Confirmed Type ascorbic acid (vitamin C) 500 mg 2 cap PO QAM cap 08/23/18 08/30/18 History capsule atenolol 100 mg tablet 100 mg PO QAM #90 tab 08/23/18 08/30/18 History calcium carbonate [Tums] 600 mg PO HS 08/23/18 08/30/18 History cholecalciferol (vitamin D3) 1,000 unit PO QAM 08/23/18 08/30/18 History [Vitamin D3] clindamycin HCl 300 mg PO TID 10 Days #30 cap 08/23/18 08/30/18 Rx cyanocobalamin (vit B-12) 1,000 100 mcg PO QAM tab 08/23/18 08/30/18 History mcg tablet glimepiride 1 mg tablet 2 mg PO HS #270 tab 08/23/18 08/30/18 History hydrochlorothiazide 25 mg tablet 25 mg PO QAM #90 tab 08/23/18 08/30/18 History insulin degludec (U-100) 100 10 unit SUBCUT HS #1 ml 08/23/18 08/30/18 History unit/mL (3 mL) subcutaneous pen lisinopril 40 mg tablet 40 mg PO QAM #90 tab 08/23/18 08/30/18 History metformin 1,000 mg tablet 1,000 mg PO BIDM #180 tab 08/23/18 08/30/18 History multivitamin tablet 1 tab PO QAM 08/23/18 08/30/18 History simvastatin 10 mg tablet 10 mg PO HS #90 tab 08/23/18 08/30/18 History nystatin 100,000 unit/mL oral 1 ml PO QID #250 ml 08/26/18 08/30/18 Rx suspension acetaminophen [Tylenol Extra 1,000 mg PO TID 08/30/18 08/30/18 History Strength] Past Med/Surg History Medical History Melanoma Diabetes Surgical History No pertinent past surgical history Family History Other Family history non-contributory Social History Preferred Language: [place] Communication Ability: Effective Cafe Lead Required: No Beliefs That Will Affect Care: [facility] Beliefs: Mennonite marital status: Current Living Situation: Spouse and Family current occupational status: retired Other Information That Helps Us Care for You: No Feels Safe at Home: Yes Safety Concerns: Feels Safe At This Time Smoking Status: Never smoker Do You Dip or Chew Tobacco: No Hx Alcohol Use: No Hx Substance Use: No Review of Systems Review of Systems: All systems reviewed & are unremarkable except as noted in HPI & below Physical Exam Constitutional: WD/WN, vitals as above Eyes: PERRL, conjunctivae normal, anicteric sclerae ENMT: Nose: no external nose abnormality, no nasal mucous membrane abnormality and no septum abnormality Poor dentition, numerous missing teeth, visible caries, gums are red beefy and inflamed Neck: trachea midline, no thyromegaly Respiratory: normal respiratory effort, lungs clear to auscultation Cardiovascular: RRR, no murmur, no edema Gastrointestinal (Abdomen): normal bowel sounds, soft, nontender, no hepatosplenomegaly Musculoskeletal: no cyanosis or clubbing, extremities motor strength 5/5 Skin: no rashes, warm and dry Neurologic: PERRL, EOMI, accommodation nl, no face palsy, no dysarthria Psychiatric: A+Ox3, euthymic affect Results & Data Vital Signs (Past 12 Hours) Vital Signs Temp Pulse Resp BP BP Pulse Ox 08/30/18 22:31 57 L 15 96 08/30/18 22:30 55 L 17 103/76 96 08/30/18 22:01 60 14 139/84 96 08/30/18 22:00 62 14 96 08/30/18 21:31 58 L 21 96 08/30/18 21:30 56 L 19 114/76 96 08/30/18 21:01 61 12 130/90 97 08/30/18 21:00 63 14 97 08/30/18 20:32 62 18 97 08/30/18 20:31 66 20 151/92 H 94 08/30/18 20:30 61 18 93 08/30/18 20:01 60 14 97 08/30/18 20:00 60 17 124/74 94 08/30/18 19:42 64 14 96 08/30/18 19:01 61 16 136/71 96 08/30/18 19:00 57 L 16 96 08/30/18 18:43 56 L 15 97 08/30/18 18:42 57 L 15 147/80 H 97 08/30/18 18:41 56 L 19 08/30/18 18:30 64 16 167/107 H 96 08/30/18 18:06 62 15 146/89 H 96 08/30/18 18:02 82 14 08/30/18 18:01 78 17 08/30/18 18:00 77 17 08/30/18 17:42 58 L 12 96 08/30/18 17:16 56 L 17 08/30/18 17:15 63 15 152/91 H 08/30/18 17:00 58 L 19 152/91 H 08/30/18 16:31 59 L 14 97 08/30/18 16:30 58 L 17 131/88 97 08/30/18 16:29 57 L 13 97 08/30/18 16:24 59 L 17 161/90 H 97 08/30/18 16:23 161/90 H 97 08/30/18 16:18 56 L 20 98 08/30/18 16:10 37 C 74 20 142/84 H 100 Code Status & VTE Plan Code Status full code VTE Prophylaxis Plan VTE Prophylaxis will be ordered: Yes Supervising Physician Co-Signing Physician Notes Attending addendum: I have physically seen this patient, have supervised the medical residents activities, and agree with the H&P unless as otherwise noted. Assessment and Plan: Coag negative staph bacteremia in 2/2 cultures from 08/26/18- Significantly abnormal dentition/several teeth removed/remaining teeth infected- Received ceftriaxone IV and Flagyl IV in the ED. (Has a penicillin allergy) Bacteria from dental caries would more commonly be strep mutans, but no other obvious source of infection noted. Concern regarding possibility of endocarditis. Order a complete echocardiogram. Patient is not been able to find a dentist or oral surgeon locally. There was discussed with he and his family that he will likely need to go to [place] or [place] to find an oral surgeon participating with his insurance. Thrush- Magic mouthwash and nystatin swish and swallow. Remaining orders and notations as noted. PG Care Time/CCT Total # of Minutes Spent Total Time Spent with Patient: Total time spent is greater than 50% in coordination of care (as documented) at patient's floor/unit and/or counseling patient: Resident Activity Tracking Resident Involvement: Resident Care Provided Care Provided: Adult Hospital Medicine
[2018-08-31] MEDS: metroNIDAZOLE 500 MG/100 ML BAG IV SCH ×3 (04:37→19:26)
[2018-08-31 07:42] LABS: Hematocrit (blood only) 38.4 % (42-52); Hemoglobin 13.1 g/dL (14.0-18.0); Mean Corpuscular Hgb Conc 34.1 g/dL (32-36); Mean Corpuscular Volume 90.6 fL (80-100); Mean Platelet Volume 9.7 fL (7.4-10.4); Platelet Count 381 K/uL (130-400); RDW Coefficient of Variation 14.2 % (11.5-14.5); RDW Standard Deviation 46.3 fL (36.4-46.3); Red Blood Count 4.24 M/uL (4.7-6.1); White Blood Count 17.36 K/uL (4.8-10.8)
[2018-08-31 08:08] LABS: BUN Creatinine Ratio 11.1 (10-20); Calcium 9.3 mg/dl (8.5-10.1); Creatinine Clr Calc Pharmacy 88.1 ml/min; Est GFR (African American) 93.1; Est GFR (Non-African American) 80.3; Potassium 4.1 mmol/L (3.5-5.1)
[2018-08-31 08:55] LABS: Basophils # (auto) 0.03 K/uL (0-0.2); Basophils % (auto) 0.2 %; Echinocytes 1+; Eosinophils # (auto) 0.07 K/uL (0-0.5); Eosinophils % (auto) 0.4 %; Immature Granulocytes # (auto) 0.13 K/uL (0.00-0.02); Immature Granulocytes % (auto) 0.7 %; Lymphocytes # (auto) 11.07 K/uL (1.2-3.4); Lymphocytes % (auto) 63.8 %; Monocytes # (auto) 1.23 K/uL (0.11-0.59); Monocytes % (auto) 7.1 %; Neutrophils # (auto) 4.83 K/uL (1.4-6.5); Neutrophils % (auto) 27.8 %
[2018-08-31] MEDS: INSULIN ASPART 100 UNITS/ML 3 ML PEN SC SCH ×4 (09:01→20:37)
--- NOTE | 2018-08-31 13:37 | Hospitalist Progress Note ---
Date of Service August 31, 2018 Assessment & Plan (1) Bacteremia: Coag negative staph grew on 08/23 completed 7 days of Clindamycin as outpatient but with fevers, not feeling well WBC was up at admission at 22k, down to 17k repeat cultures pending echo without vegetations continue Rocephin and Flagyl for now, follow up repeat cultures (2) Diabetes: diabetic diet, allow him to eat today Novolog SS (3) Hyperlipidemia: continue Statin therapy (4) HTN (hypertension): stable, continue Atenolol (5) Personal history of malignant melanoma of skin: (6) Acute gingivitis: can follow up with oral surgery for extraction want to make sure blood is clear of infection, no longer in sepsis Subjective patient says he is feeling well, no fever or chills no chest pain, no dyspnea, no abdominal pain some mild pain in teeth bilaterally reviewed labs, WBC down to 17k, Cr 0.96 and electrolytes stable updated his family at the bedside outpatient cultures grew coag neg staph on 08/23, failed Clindamycin repeat cultures with no growth echo without vegetations Review of Systems Review of Systems: All systems reviewed & are unremarkable except as noted in HPI & below Constitutional: no fever, no chills and no sweats Ear, Nose, Mouth, Throat: + dental pain, + dental caries and + dental abscess Respiratory: no cough and no dyspnea Cardiovascular: no chest pain Gastrointestinal: no abdominal pain, no nausea, no vomiting, no constipation and no diarrhea/loose stools Physical Exam Constitutional: WD/WN, vitals as above Eyes: PERRL, conjunctivae normal, anicteric sclerae ENMT: external ear and nose normal, oropharynx normal Mouth: + dental caries, + poor dentition and + loose teeth Neck: trachea midline, no thyromegaly Respiratory: normal respiratory effort, lungs clear to auscultation Cardiovascular: RRR, no murmur, no edema Gastrointestinal (Abdomen): normal bowel sounds, soft, nontender, no hepatosplenomegaly Musculoskeletal: no cyanosis or clubbing, extremities motor strength 5/5 Skin: no rashes, warm and dry Neurologic: patellar DTR's 2+ bilat, sensation intact and PERRL, EOMI, acc ommodation nl, no face palsy, no dysarthria Psychiatric: A+Ox3, euthymic affect Lymphatic: no cervical or axillary lymphadenopathy Results & Data Vital Signs (Past 12 Hours) Vital Signs Temp Pulse Pulse Resp BP Pulse Ox 08/31/18 11:22 36.7 C 66 16 141/92 H 95 08/31/18 09:01 64 08/31/18 07:22 36.8 C 44 L 16 134/78 95 08/31/18 03:49 36.9 C 51 L 18 130/82 93 Laboratory Results Laboratory Results - last 24 hr 08/30/18 08/30/18 08/30/18 16:42 16:42 16:42 WBC 22.18 H RBC 4.47 L Hgb 14.2 Hct 39.9 L MCV 89.3 MCH 31.8 MCHC 35.6 RDW Std Deviation 45.3 RDW Coeff of Jackie 13.9 Plt Count 428 H MPV 9.6 Immature Gran % (Auto) 0.6 Neut % (Auto) 30.2 Lymph % (Auto) 62.6 [place] % (Auto) 6.4 Eos % (Auto) 0.1 Baso % (Auto) 0.1 Immature Gran # (Auto) 0.14 H Neut # (Auto) 6.70 H Lymph # (Auto) 13.88 H [place] # (Auto) 1.41 H Eos # (Auto) 0.03 Baso # (Auto) 0.02 Echinocytes PT 10.8 INR 1.1 Sodium 129 L Potassium 4.4 Chloride 96 L Carbon Dioxide 23 Anion Gap 10.0 BUN 14 Creatinine 0.97 Est Cr Clr Drug Dosing 87.2 Est GFR ( Amer) 91.9 Est GFR (Non-Af Amer) 79.3 BUN/Creatinine Ratio 14.9 Glucose 100 H POC Glucose POC Lactic Acid Kris Calcium 9.3 Total Bilirubin 0.6 AST 20 ALT 30 Alkaline Phosphatase 96 Total Protein 7.3 Albumin 3.7 Globulin 3.6 Albumin/Globulin Ratio 1.0 Lipase 100 Urine Color Urine Appearance Urine pH Ur Specific [place] Urine Protein Urine Glucose (UA) Urine Ketones Urine Blood Urine Nitrite Urine Bilirubin Urine Urobilinogen Ur Leukocyte Esterase Hepatitis C Ab Screen 08/30/18 08/30/18 08/30/18 16:43 16:50 18:45 WBC RBC Hgb Hct MCV MCH MCHC RDW Std Deviation RDW Coeff of Jackie Plt Count MPV Immature Gran % (Auto) Neut % (Auto) Lymph % (Auto) [place] % (Auto) Eos % (Auto) Baso % (Auto) Immature Gran # (Auto) Neut # (Auto) Lymph # (Auto) [place] # (Auto) Eos # (Auto) Baso # (Auto) Echinocytes PT INR Sodium Potassium Chloride Carbon Dioxide Anion Gap BUN Creatinine Est Cr Clr Drug Dosing Est GFR ( Amer) Est GFR (Non-Af Amer) BUN/Creatinine Ratio Glucose POC Glucose POC Lactic Acid Kris 1.22 Calcium Total Bilirubin AST ALT Alkaline Phosphatase Total Protein Albumin Globulin Albumin/Globulin Ratio Lipase Urine Color Yellow Urine Appearance Clear Urine pH 5.5 Ur Specific [place] 1.021 Urine Protein Negative Urine Glucose (UA) Negative Urine Ketones Trace H Urine Blood Negative Urine Nitrite Negative Urine Bilirubin Negative Urine Urobilinogen Negative Ur Leukocyte Esterase Negative Hepatitis C Ab Screen Neg 08/31/18 08/31/18 08/31/18 07:35 07:35 07:54 WBC 17.36 H RBC 4.24 L Hgb 13.1 L Hct 38.4 L MCV 90.6 MCH 30.9 MCHC 34.1 RDW Std Deviation 46.3 RDW Coeff of Jackie 14.2 Plt Count 381 MPV 9.7 Immature Gran % (Auto) 0.7 Neut % (Auto) 27.8 Lymph % (Auto) 63.8 [place] % (Auto) 7.1 Eos % (Auto) 0.4 Baso % (Auto) 0.2 Immature Gran # (Auto) 0.13 H Neut # (Auto) 4.83 Lymph # (Auto) 11.07 H [place] # (Auto) 1.23 H Eos # (Auto) 0.07 Baso # (Auto) 0.03 Echinocytes 1+ PT INR Sodium 136 D Potassium 4.1 Chloride 100 Carbon Dioxide 27 Anion Gap 9.0 BUN 11 Creatinine 0.96 Est Cr Clr Drug Dosing 88.1 Est GFR ( Amer) 93.1 Est GFR (Non-Af Amer) 80.3 BUN/Creatinine Ratio 11.1 Glucose 103 H POC Glucose 102 H POC Lactic Acid Kris Calcium 9.3 Total Bilirubin AST ALT Alkaline Phosphatase Total Protein Albumin Globulin Albumin/Globulin Ratio Lipase Urine Color Urine Appearance Urine pH Ur Specific [place] Urine Protein Urine Glucose (UA) Urine Ketones Urine Blood Urine Nitrite Urine Bilirubin Urine Urobilinogen Ur Leukocyte Esterase Hepatitis C Ab Screen 08/31/18 11:42 WBC RBC Hgb Hct MCV MCH MCHC RDW Std Deviation RDW Coeff of Jackie Plt Count MPV Immature Gran % (Auto) Neut % (Auto) Lymph % (Auto) [place] % (Auto) Eos % (Auto) Baso % (Auto) Immature Gran # (Auto) Neut # (Auto) Lymph # (Auto) [place] # (Auto) Eos # (Auto) Baso # (Auto) Echinocytes PT INR Sodium Potassium Chloride Carbon Dioxide Anion Gap BUN Creatinine Est Cr Clr Drug Dosing Est GFR ( Amer) Est GFR (Non-Af Amer) BUN/Creatinine Ratio Glucose POC Glucose 132 H POC Lactic Acid Kris Calcium Total Bilirubin AST ALT Alkaline Phosphatase Total Protein Albumin Globulin Albumin/Globulin Ratio Lipase Urine Color Urine Appearance Urine pH Ur Specific [place] Urine Protein Urine Glucose (UA) Urine Ketones Urine Blood Urine Nitrite Urine Bilirubin Urine Urobilinogen Ur Leukocyte Esterase Hepatitis C Ab Screen Diagnostic Findings ECHOCARDIOGRAM: no evidence of mass or vegetations Medications Administered Current Inpatient Medications Acetaminophen (Tylenol) 650 mg PO Q4H PRN PRN Reason: Pain or Fever Stop: 09/29/18 23:16 Dexamethasone 3.75 mg/Nystatin 30 ml/Diphenhydramine HCl 300 mg/Sucrose 45 ml/Microcrystalline Cellulose 45 ml/ BARCODE IDENTIFIER 1 ea 0 mg PO TID PRN PRN Reason: pain Stop: 09/29/18 23:16 Dextrose (Dextrose 50%) 25 - 50 ml IV UD PRN; Protocol PRN Reason: Hypoglycemia Protocol Stop: 09/29/18 23:29 Glucagon (Glucagen) 1 mg SQ UD PRN; Protocol PRN Reason: Hypoglycemia Protocol Stop: 09/29/18 23:29 Glucose (Glucose 40%) 15 - 30 gm PO UD PRN; Protocol PRN Reason: Hypoglycemia Protocol Stop: 09/29/18 23:29 Glucose (Dex4 Glucose) 4 - 8 tabs PO UD PRN; Protocol PRN Reason: Hypoglycemia Protocol Stop: 09/29/18 23:29 Ceftriaxone Sodium 2,000 mg/ (Dextrose) 70 mls @ 100 mls/hr IV Q24H [facility]ARCELA; Protocol Stop: 09/12/18 18:41 Metronidazole (Flagyl) 500 mg in 100 mls @ 100 mls/hr IV Q8H [facility] Stop: 09/14/18 03:59 Last Admin: 08/31/18 12:48 Dose: 100 mls/hr Documented by: Insulin Aspart (Novolog Flexpen) 0 units SC ACHS [facility] Stop: 09/30/18 07:29 Last Admin: 08/31/18 12:47 Dose: 2 units Documented by: Insulin Glargine (Lantus Solostar Pen) 10 units SQ HS [facility] Stop: 09/30/18 20:59 Miscellaneous (Carbohydrates For Hypoglycemia) 15 - 30 gm PO UD PRN PRN Reason: Hypoglycemia Treatment Stop: 09/29/18 23:29 Nystatin (Mycostatin) 1 ml PO QID [facility] Stop: 09/09/18 23:16 Last Admin: 08/31/18 12:48 Dose: 1 ml Documented by: Ondansetron HCl (Zofran) 4 mg IV Q6H PRN PRN Reason: Nausea Stop: 09/29/18 23:16 Polyethylene Glycol (Miralax Powder Packet) 17 gm PO DAILY PRN PRN Reason: Constipation Stop: 09/29/18 23:16 PG Care Time/CCT Total # of Minutes Spent Total Time Spent with Patient: Total time spent is greater than 50% in coordination of care (as documented) at patient's floor/unit and/or counseling patient:
[2018-08-31] MEDS: cefTRIAXone SODIUM 2,000 MG in DEXTROSE 5% 50 ML IV SCH (17:46)
[2018-08-31] MEDS: INSULIN GLARGINE SOLOSTAR 100 UNITS/ML 3 ML PEN SQ SCH (20:36)
[2018-09-01] MEDS: metroNIDAZOLE 500 MG/100 ML BAG IV SCH ×3 (04:07→20:23)
[2018-09-01 07:46] LABS: Hematocrit (blood only) 39.2 % (42-52); Hemoglobin 13.5 g/dL (14.0-18.0); Mean Corpuscular Hgb Conc 34.4 g/dL (32-36); Mean Platelet Volume 9.8 fL (7.4-10.4); Platelet Count 408 K/uL (130-400); RDW Coefficient of Variation 14.3 % (11.5-14.5); RDW Standard Deviation 47.4 fL (36.4-46.3); Red Blood Count 4.31 M/uL (4.7-6.1); White Blood Count 15.61 K/uL (4.8-10.8)
[2018-09-01 08:18] LABS: Albumin Level 3.3 gm/dl (3.4-5.0); BUN Creatinine Ratio 14.3 (10-20); Calcium 9.3 mg/dl (8.5-10.1); Creatinine Clr Calc Pharmacy 89.4 ml/min; Est GFR (Non-African American) 84.6; Potassium 4.1 mmol/L (3.5-5.1)
[2018-09-01 08:21] LABS: Bilirubin,Total 0.6 mg/dl (0.2-1); Globulin 3.2 gm/dl (2.5-4.0); Total Protein 6.5 gm/dl (6.4-8.2)
[2018-09-01 08:39] LABS: Basophils # (auto) 0.02 K/uL (0-0.2); Basophils % (auto) 0.1 %; Eosinophils % (auto) 0.6 %; Immature Granulocytes # (auto) 0.09 K/uL (0.00-0.02); Immature Granulocytes % (auto) 0.6 %; Lymphocytes # (auto) 9.99 K/uL (1.2-3.4); Monocytes # (auto) 0.85 K/uL (0.11-0.59); Monocytes % (auto) 5.4 %; Neutrophils # (auto) 4.56 K/uL (1.4-6.5); Neutrophils % (auto) 29.3 %; RBC Morphology Unremarkable
[2018-09-01] MEDS: INSULIN ASPART 100 UNITS/ML 3 ML PEN SC SCH ×4 (08:45→20:33)
[2018-09-01] MEDS: NYSTATIN SUSP 500,000 U/5 ML UDC PO SCH ×4 (08:52→20:24)
--- NOTE | 2018-09-01 11:23 | Hospitalist Progress Note ---
Date of Service September 01, 2018 Assessment & Plan (1) Bacteremia: Coag negative staph grew on 6/7 completed 7 days of Clindamycin as outpatient but with fevers, not feeling well WBC was up at admission at 22k, down to 15k today repeat cultures showing no growth echo without vegetations continue Rocephin and Flagyl for now asked about allergies, he confirmed that he gets severe reaction to penicillin initial cultures showed sensitivity to Clindamycin but clinically he got worse will ask ID to see tomorrow for recommendations on antibiotics and duration also, needs close follow up with oral surgeon to get teeth pulled no abscess seen on soft tissue CT, just extensive carries (2) Diabetes: diabetic diet, monitor for hypoglycemia Novolog SS (3) Hyperlipidemia: continue Statin therapy (4) HTN (hypertension): stable, continue Atenolol (5) Personal history of malignant melanoma of skin: (6) Acute gingivitis: can follow up with oral surgery for extraction want to make sure blood is clear of infection, no longer in sepsis Subjective patient feeling great, no fever or chills, mild pain in mouth reviewed blood cultures from admission, no growth discussed with him and his that echo was normal WBC trending down to 15k, BMP is normal he would like referral to oral surgeon, said that CM could assist tomorrow will ask ID to weigh in on discharge antibiotics and duration tomorrow Review of Systems Review of Systems: All systems reviewed & are unremarkable except as noted in HPI & below Constitutional: no fever, no chills, no sweats, no fatigue and no weakness Respiratory: no cough and no dyspnea Cardiovascular: no chest pain and no edema Gastrointestinal: no abdominal pain, no nausea, no vomiting, no constipation and no diarrhea/loose stools Physical Exam Constitutional: WD/WN, vitals as above Eyes: PERRL, conjunctivae normal, anicteric sclerae ENMT: external ear and nose normal, oropharynx normal Mouth: + dental caries, + poor dentition and + loose teeth Neck: trachea midline, no thyromegaly Respiratory: normal respiratory effort, lungs clear to auscultation Cardiovascular: RRR, no murmur, no edema Gastrointestinal (Abdomen): normal bowel sounds, soft, nontender, no hepatospl enomegaly Musculoskeletal: no cyanosis or clubbing, extremities motor strength 5/5 Skin: no rashes, warm and dry Neurologic: patellar DTR's 2+ bilat, sensation intact and PERRL, EOMI, accommodation nl, no face palsy, no dysarthria Psychiatric: A+Ox3, euthymic affect Lymphatic: no cervical or axillary lymphadenopathy Results & Data Vital Signs (Past 12 Hours) Vital Signs Temp Pulse Resp BP Pulse Ox 09/01/18 07:13 36.8 C 65 16 119/75 93 09/01/18 04:28 36.6 C 61 20 111/78 97 Laboratory Results Laboratory Results - last 24 hr 08/31/18 08/31/18 08/31/18 11:42 16:43 20:11 WBC RBC Hgb Hct MCV MCH MCHC RDW Std Deviation RDW Coeff of Jackie Plt Count MPV Immature Gran % (Auto) Neut % (Auto) Lymph % (Auto) [place] % (Auto) Eos % (Auto) Baso % (Auto) Immature Gran # (Auto) Neut # (Auto) Lymph # (Auto) [place] # (Auto) Eos # (Auto) Baso # (Auto) RBC Morphology Sodium Potassium Chloride Carbon Dioxide Anion Gap BUN Creatinine Est Cr Clr Drug Dosing Est GFR ( Amer) Est GFR (Non-Af Amer) BUN/Creatinine Ratio Glucose POC Glucose 132 H 106 H 159 H Calcium Total Bilirubin AST ALT Alkaline Phosphatase Total Protein Albumin Globulin Albumin/Globulin Ratio 09/01/18 09/01/18 09/01/18 07:36 07:38 07:38 WBC 15.61 H RBC 4.31 L Hgb 13.5 L Hct 39.2 L MCV 91.0 MCH 31.3 MCHC 34.4 RDW Std Deviation 47.4 H RDW Coeff of Jackie 14.3 Plt Count 408 H MPV 9.8 Immature Gran % (Auto) 0.6 Neut % (Auto) 29.3 Lymph % (Auto) 64.0 [place] % (Auto) 5.4 Eos % (Auto) 0.6 Baso % (Auto) 0.1 Immature Gran # (Auto) 0.09 H Neut # (Auto) 4.56 Lymph # (Auto) 9.99 H [place] # (Auto) 0.85 H Eos # (Auto) 0.10 Baso # (Auto) 0.02 RBC Morphology Unremarkable Sodium 138 Potassium 4.1 Chloride 102 Carbon Dioxide 27 Anion Gap 9.0 BUN 13 Creatinine 0.92 Est Cr Clr Drug Dosing 89.4 Est GFR ( Amer) 98.0 Est GFR (Non-Af Amer) 84.6 BUN/Creatinine Ratio 14.3 Glucose 128 H POC Glucose 130 H Calcium 9.3 Total Bilirubin 0.6 AST 17 ALT 27 Alkaline Phosphatase 86 Total Protein 6.5 Albumin 3.3 L Globulin 3.2 Albumin/Globulin Ratio 1.0 Medications Administered Current Inpatient Medications Acetaminophen (Tylenol) 650 mg PO Q4H PRN PRN Reason: Pain or Fever Stop: 09/29/18 23:16 Dexamethasone 3.75 mg/Nystatin 30 ml/Diphenhydramine HCl 300 mg/Sucrose 45 ml/Microcrystalline Cellulose 45 ml/ BARCODE IDENTIFIER 1 ea 0 mg PO TID PRN PRN Reason: pain Stop: 09/29/18 23:16 Dextrose (Dextrose 50%) 25 - 50 ml IV UD PRN; Protocol PRN Reason: Hypoglycemia Protocol Stop: 09/29/18 23:29 Glucagon (Glucagen) 1 mg SQ UD PRN; Protocol PRN Reason: Hypoglycemia Protocol Stop: 09/29/18 23:29 Glucose (Glucose 40%) 15 - 30 gm PO UD PRN; Protocol PRN Reason: Hypoglycemia Protocol Stop: 09/29/18 23:29 Glucose (Dex4 Glucose) 4 - 8 tabs PO UD PRN; Protocol PRN Reason: Hypoglycemia Protocol Stop: 09/29/18 23:29 Ceftriaxone Sodium 2,000 mg/ (Dextrose) 70 mls @ 100 mls/hr IV Q24H [facility]A; Protocol Stop: 09/12/18 18:41 Last Infusion: 08/31/18 18:31 Dose: Infused Documented by: Metronidazole (Flagyl) 500 mg in 100 mls @ 100 mls/hr IV Q8H [facility] Stop: 09/14/18 03:59 Last Infusion: 09/01/18 05:17 Dose: Infused Documented by: Insulin Aspart (Novolog Flexpen) 0 units SC ACHS [facility] Stop: 09/30/18 07:29 Last Admin: 09/01/18 08:45 Dose: 1 units Documented by: Insulin Glargine (Lantus Solostar Pen) 10 units SQ HS [facility] Stop: 09/30/18 20:59 Last Admin: 08/31/18 20:36 Dose: 10 units Documented by: Miscellaneous (Carbohydrates For Hypoglycemia) 15 - 30 gm PO UD PRN PRN Reason: Hypoglycemia Treatment Stop: 09/29/18 23:29 Nystatin (Mycostatin) 1 ml PO QID [facility] Stop: 09/09/18 23:16 Last Admin: 09/01/18 08:52 Dose: 1 ml Documented by: Ondansetron HCl (Zofran) 4 mg IV Q6H PRN PRN Reason: Nausea Stop: 09/29/18 23:16 Polyethylene Glycol (Miralax Powder Packet) 17 gm PO DAILY PRN PRN Reason: Constipation Stop: 09/29/18 23:16 PG Care Time/CCT Total # of Minutes Spent Total Time Spent with Patient: Total time spent is greater than 50% in coordination of care (as documented) at patient's floor/unit and/or counseling patient:
--- NOTE | 2018-09-01 16:48 | Infectious Disease Consult ---
Date of Consultation September 01, 2018 Assessment & Plan (1) Bacteremia due to Staphylococcus: Patient with coagulase-negative staph bacteremia, unclear significance given associated clinical syndrome, possible that this could be a contaminant. However, follow-up cultures are negative after treatment with clindamycin so either contaminant or suggest the clindamycin was affected. Wonder about possibility of primary HSV infection causing oral symptoms. Given that he is clinically improved and follow-up blood cultures are negative, would think the patient could be transitioned tomorrow to oral antibiotics and would recommend continuation of clindamycin to complete 14 days of therapy total. Will discuss with all involved. Will follow. (2) Mouth ulcers: History of Present Illness Reason for Consultation: Bacteremia, recommendations for discharge antibiotics Attending Physician: Naren Soto, History of Present Illness 87-year-old male with history of hypertension, hyperlipidemia, diabetes, cell carcinoma was in usual state of health approximately 2 weeks ago when he noted onset of oral coating of his tongue, and oral pain with difficulty eating and swallowing. His primary care physician prescribed "magic mouthwash" without any significant improvement symptoms worsen, patient went to the emergency room where he sent home on oral clindamycin. Symptoms have gradually improved over the last week, the patient was called back when blood cultures became positive for coagulase-negative staph. Patient has been started on ceftriaxone and metronidazole. States oral pain and ulcerations have significantly improved. Has been afebrile, feeling relatively well. Follow-up blood cultures are negative to date. Allergies Allergy/AdvReac Type Severity Reaction Status Date / Time Penicillins Allergy Hives Verified 08/30/18 17:05 grass pollen AdvReac Watery Eye Verified 08/30/18 17:05 dust AdvReac Watery Eye Uncoded 08/30/18 17:05 Home Medications Home Medications Medication Instructions Recorded Confirmed Type ascorbic acid (vitamin C) 500 mg 2 cap PO QAM cap 08/23/18 08/30/18 History capsule atenolol 100 mg tablet 100 mg PO QAM #90 tab 08/23/18 08/30/18 History calcium carbonate [Tums] 600 mg PO HS 08/23/18 08/30/18 History cholecalciferol (vitamin D3) 1,000 unit PO QAM 08/23/18 08/30/18 History [Vitamin D3] cyanocobalamin (vit B-12) 1,000 100 mcg PO QAM tab 08/23/18 08/30/18 History mcg tablet glimepiride 1 mg tablet 2 mg PO HS #270 tab 08/23/18 08/30/18 History hydrochlorothiazide 25 mg tablet 25 mg PO QAM #90 tab 08/23/18 08/30/18 History insulin degludec (U-100) 100 10 unit SUBCUT HS #1 ml 08/23/18 08/30/18 History unit/mL (3 mL) subcutaneous pen lisinopril 40 mg tablet 40 mg PO QAM #90 tab 08/23/18 08/30/18 History metformin 1,000 mg tablet 1,000 mg PO BIDM #180 tab 08/23/18 08/30/18 History multivitamin tablet 1 tab PO QAM 08/23/18 08/30/18 History simvastatin 10 mg tablet 10 mg PO HS #90 tab 08/23/18 08/30/18 History nystatin 100,000 unit/mL oral 1 ml PO QID #250 ml 08/26/18 08/30/18 Rx suspension acetaminophen [Tylenol Extra 1,000 mg PO TID 08/30/18 08/30/18 History Strength] Patient History Medical History Melanoma Diabetes Surgical History No pertinent past surgical history Family History Other Family history non-contributory Social History Preferred Language: Lithuanian Communication Ability: Effective Inspector Multifocal Lens Required: No Beliefs That Will Affect Care: Faith Faith Beliefs: Mennonite marital status: Current Living Situation: Spouse and Family current occupational status: retired Other Information That Helps Us Care for You: No Feels Safe at Home: Yes Safety Concerns: Feels Safe At This Time Smoking Status: Never smoker Do You Dip or Chew Tobacco: No Hx Alcohol Use: No Hx Substance Use: No Review of Systems Review of Systems: All systems reviewed & are unremarkable except as noted in HPI & below Physical Exam Constitutional: WD/WN, vitals as above + obese Eyes: PERRL, conjunctivae normal, anicteric sclerae ENMT: Ears: no external ear abnormality Nose: no external nose abnormality Mouth: + oropharynx abnormality (Inflamed gingiva, mild tongue coating, erythema pharynx) Neck: trachea midline, no thyromegaly normal visual inspection Respiratory: normal respiratory effort, lungs clear to auscultation normal percussion; no respiratory distress Cardiovascular: RRR, no murmur, no edema Heart Sounds: no gallop and no cardiac rub Gastrointestinal (Abdomen): normal bowel sounds, soft, nontender, no hepatosplenomegaly Percussion/Palpation: no abdominal mass Musculoskeletal: Head/Neck/Chest: normocephalic, head atraumatic and neck supple Extremities: strength 5/5 throughout Skin: no rashes, warm and dry no lesions Neurologic: moves all extremities; no focal motor deficits Psychiatric: A+Ox3, euthymic affect Lymphatic: + cervical lymphadenopathy (Nontender cervical bilaterally); no axillary lymphadenopathy and no inguinal lymphadenopathy Results & Data Vital Signs (Past 12 Hours) Vital Signs Temp Pulse Resp BP Pulse Ox 09/01/18 15:18 36.8 C 87 17 141/98 H 95 09/01/18 11:43 37.2 C 74 16 143/92 H 94 09/01/18 07:13 36.8 C 65 16 119/75 93 Laboratory Results Short CBC 09/01/18 Range/Units 07:38 WBC 15.61 H (4.8-10.8) K/uL Hgb 13.5 L (14.0-18.0) g/dL Hct 39.2 L (42-52) % Plt Count 408 H (130-400) K/uL BMP 09/01/18 07:38 Sodium 138 Potassium 4.1 Chloride 102 Carbon Dioxide 27 BUN 13 Creatinine 0.92 Glucose 128 H Calcium 9.3 Liver Function 09/01/18 Range/Units 07:38 Total Bilirubin 0.6 (0.2-1) mg/dl AST 17 (15-37) U/L ALT 27 (12-78) U/L Alkaline Phosphatase 86 (45-117) U/L Albumin 3.3 L (3.4-5.0) gm/dl Diagnostic Findings Microbiology 08/30/18 16:39 Blood Aerobic Blood Culture - Preliminary No growth in Aerobic bottle after 24 hours. 08/30/18 16:39 Blood Anaerobic Blood Culture - Preliminary No growth in Anaerobic bottle after 24 hours. 08/30/18 16:39 Blood Aerobic Blood Culture - Preliminary No growth in Aerobic bottle after 24 hours. 08/30/18 16:39 Blood Anaerobic Blood Culture - Preliminary No growth in Anaerobic bottle after [address] soft tissue neck w con CLINICAL HISTORY: 67 years-old Male presenting with ? abscess r lower jaw. recent ct wbc 22k jaw pain. TECHNIQUE: Multidetector CT of the neck was performed after the administration of intravenous contrast. IV contrast: 94 mL of Optiray 320. One or more dose lowering techniques were used consistent with the principles of ALARA (as low as reasonably achievable), including automatic exposure control, mA or kV adjustment to individual patient size, and/or use of iterative reconstruction. COMPARISON: 08/23/2018. CT DOSE (mGy.cm): The estimated cumulative dose is 578.09 mGy.cm. FINDINGS: Quartz Mounter topogram: Unremarkable. Numerous mandibular and maxillary teeth are absent prominent dental caries in the residual right mandibular canine. Dental caries also noted elsewhere most prominently at the right maxillary molar. Periapical lucency may be present at the right maxillary molar versus bony dehiscence of the right maxillary sinus floor. Associated mild mucosal thickening in the right maxillary sinus as on prior exam. No cortical erosion of the mandible or maxilla. No significant hyperemia of the buccal mucosa. No evidence of abscess. Superficial soft tissues of the face within normal limits. Parotid, submandibular, and thyroid glands normal. Scattered cervical lymph nodes measuring up to 1.6 cm in axial long axis on the right and 1.8 cm on the left. This is similar to prior exam and has allegedly enlarged by CT size criteria. Vasculature patent. Mild atherosclerosis. Limited intracranial evaluation demonstrates normal brain parenchyma and atherosclerosis of the cavernous segments of internal carotid arteries. Orbits normal. Skull base intact. Degenerative changes of the cervical spine. Lung apices clear. No suspicious nodular soft tissue enhancement along the aerodigestive tract, which is patent. IMPRESSION: 1. No odontogenic abscess. No buccal mucosal hyperemia. 2. Numerous dental extractions with dental caries of residual teeth most prominently in the right mandibular canine and right maxillary molar. 3. Bilateral cervical lymphadenopathy. This could be reactive though an underlying lymphoproliferative disease or metastatic disease cannot be excluded. Follow-up is advised. Electronically signed by: Braden Ervin M.D. 08/30/2018 5:41 PM Dictated: 08/30/18 1732
[2018-09-01] MEDS: cefTRIAXone SODIUM 2,000 MG in DEXTROSE 5% 50 ML IV SCH (17:54)
[2018-09-01] MEDS: INSULIN GLARGINE SOLOSTAR 100 UNITS/ML 3 ML PEN SQ SCH (20:34)
[2018-09-02] MEDS: metroNIDAZOLE 500 MG/100 ML BAG IV SCH ×3 (04:16→20:20)
[2018-09-02] MEDS ORDERED: dilTIAZem HCl 5 MG/ML 5 ML VIAL IV STA (06:12)
[2018-09-02 06:24] LABS: Hematocrit (blood only) 40.4 % (42-52); Hemoglobin 13.9 g/dL (14.0-18.0); Mean Corpuscular Hgb Conc 34.4 g/dL (32-36); Mean Platelet Volume 9.8 fL (7.4-10.4); Platelet Count 423 K/uL (130-400); RDW Coefficient of Variation 14.3 % (11.5-14.5); RDW Standard Deviation 47.2 fL (36.4-46.3); Red Blood Count 4.44 M/uL (4.7-6.1); White Blood Count 15.65 K/uL (4.8-10.8)
[2018-09-02 06:50] LABS: Albumin Level 3.2 gm/dl (3.4-5.0); BUN Creatinine Ratio 13.8 (10-20); Calcium 9.1 mg/dl (8.5-10.1); Creatinine Clr Calc Pharmacy 93.5 ml/min; Est GFR (African American) 101.6; Est GFR (Non-African American) 87.6; Magnesium 1.8 mg/dl (1.8-2.4)
[2018-09-02 07:01] LABS: Bilirubin,Total 0.6 mg/dl (0.2-1); Globulin 3.2 gm/dl (2.5-4.0); Total Protein 6.4 gm/dl (6.4-8.2)
[2018-09-02] MEDS: NYSTATIN SUSP 500,000 U/5 ML UDC PO SCH ×4 (07:37→20:54)
[2018-09-02 07:44] LABS: Anisocytosis Present; Basophils # (auto) 0.05 K/uL (0-0.2); Basophils % (auto) 0.3 %; Echinocytes 1+; Eosinophils # (auto) 0.15 K/uL (0-0.5); Immature Granulocytes % (auto) 0.6 %; Lymphocytes # (auto) 10.29 K/uL (1.2-3.4); Lymphocytes % (auto) 65.8 %; Monocytes # (auto) 0.96 K/uL (0.11-0.59); Monocytes % (auto) 6.1 %; Neutrophils % (auto) 26.2 %; Smudge Cells Present; Toxic Granulation 1+
[2018-09-02] MEDS: INSULIN ASPART 100 UNITS/ML 3 ML PEN SC SCH ×4 (08:35→20:55)
[2018-09-02] MEDS ORDERED: ATENOLOL 50 MG TABLET PO SCH (09:00)
[2018-09-02] MEDS ORDERED: METOPROLOL TARTRATE 25 MG TAB PO SCH ×2 (14:30→18:00)
[2018-09-02] MEDS: cefTRIAXone SODIUM 2,000 MG in DEXTROSE 5% 50 ML IV SCH (17:34)
[2018-09-02] MEDS ORDERED: METOPROLOL TARTRATE 50 MG TAB PO ONE (18:30)
--- NOTE | 2018-09-02 19:34 | Hospitalist Progress Note ---
Date of Service September 02, 2018 Assessment & Plan (1) Atrial fibrillation with RVR: No symptoms. Echo with recent preserved EF and normal valve function. TSH wnl. STOP atenolol. Change to metoprolol 25mg q6h and titrate for rate control. CHADS score at least 2 -- anticoagulation recommended. Low cost for eliquis -- start 5mg BID tonight. Keep on tele. Since he has no symptoms easily could have had this at home in the past and went undetectable. (2) Bacteremia: Coag negative staph grew on 08/23/18 cultures. completed 7 days of Clindamycin as outpatient but still was unwell. repeat cultures showing no growth. echo without vegetations. continue Rocephin and Flagyl for now but can change back to oral clindamycin at discharge per ID recommendations. source?? coag negative staph is unlikely to be from oral cavity but his skin. no cellulitis or other skin issue at this time however. (3) Diabetes: cont lantus + novolog acceptable control at this time (4) Hyperlipidemia: resume statin at d/c (5) HTN (hypertension): changing atenolol to metoprolol in light of a.fib (6) Personal history of malignant melanoma of skin: noted lymphadenopathy likely NOT mets but this will need formal heme/onc consultation post-discharge (7) Dental caries: multiple remains on antibiotics clindamycin at d/c with oral surgery referral at discharge (8) Leukocytosis: leukocytosis, lymphocytosis, lymphadenopathy, and smudge cells all concerning for CLL or lymphoma process flow cytometry sent will need heme/onc consultation shortly after d/c (9) DVT prophylaxis: eliquis BID to be started extensively updated at bedside home tomorrow if a.fib rates are controlled Subjective overnight the patient converted from NSR to a.fib. had RVR with such. no symptoms, however, such as palpitations, dyspnea or chest pain. he is anxious to get home and was disappointed he would not be discharging today. patient denies any fevers/chills/sweats over the last few months although he has had fatigue. he reports his sister has CLL. mouth feeling much better and can eat w/o difficulty. Review of Systems Constitutional: + fatigue; no fever, no chills, no anorexia and no weight loss Ear, Nose, Mouth, Throat: + dental caries Respiratory: no cough and no dyspnea Cardiovascular: no chest pain Gastrointestinal: no abdominal pain, no nausea and no vomiting Integumentary: no rash and no erythema Physical Exam Constitutional: well developed and well nourished; no acute distress ENMT: Mouth: + dental caries and + poor dentition Respiratory: normal respiratory effort, lungs clear to auscultation Cardiovascular: Rate/Rhythm: + tachycardic and + irregularly irregular Heart Sounds: normal S1 and normal S2; no murmur Vessels: posterior tibial pulses present and dorsalis pedis pulses present; no JVD Extremities: no edema Gastrointestinal (Abdomen): normal bowel sounds, soft, nontender, no hepatosplenomegaly Skin: no rashes, warm and dry Psychiatric: A+Ox3, euthymic affect Lymphatic: + cervical lymphadenopathy (multiple nodes, each over 1cm in size) and + axillary lymphadenopathy (left - 1-2cm in size ) Results & Data Vital Signs (Past 12 Hours) Vital Signs Temp Pulse Resp BP BP Pulse Ox 09/02/18 15:46 36.8 C 80 18 117/84 95 09/02/18 11:18 36.5 C 63 20 121/80 97 Laboratory Results Laboratory Results - last 24 hr 09/02/18 09/02/18 09/02/18 06:08 06:08 06:08 WBC 15.65 H RBC 4.44 L Hgb 13.9 L Hct 40.4 L MCV 91.0 MCH 31.3 MCHC 34.4 RDW Std Deviation 47.2 H RDW Coeff of Jackie 14.3 Plt Count 423 H MPV 9.8 Immature Gran % (Auto) 0.6 Neut % (Auto) 26.2 Lymph % (Auto) 65.8 Faulkner % (Auto) 6.1 Eos % (Auto) 1.0 Baso % (Auto) 0.3 Immature Gran # (Auto) 0.10 H Neut # (Auto) 4.10 Lymph # (Auto) 10.29 H Faulkner # (Auto) 0.96 H Eos # (Auto) 0.15 Baso # (Auto) 0.05 Smudge Cells Present Toxic Granulation 1+ Anisocytosis Present Echinocytes 1+ Sodium 139 Potassium 4.0 Chloride 105 Carbon Dioxide 27 Anion Gap 8.0 BUN 12 Creatinine 0.88 Est Cr Clr Drug Dosing 93.5 Est GFR ( Amer) 101.6 Est GFR (Non-Af Amer) 87.6 BUN/Creatinine Ratio 13.8 Glucose 137 H POC Glucose Calcium 9.1 Magnesium 1.8 Cancelled Total Bilirubin 0.6 AST 18 ALT 28 Alkaline Phosphatase 82 Total Protein 6.4 Albumin 3.2 L Globulin 3.2 Albumin/Globulin Ratio 1.0 TSH 1.150 Cancelled Flow Cytometry Comment 09/02/18 09/02/18 09/02/18 06:08 08:02 11:31 WBC RBC Hgb Hct MCV MCH MCHC RDW Std Deviation RDW Coeff of Jackie Plt Count MPV Immature Gran % (Auto) Neut % (Auto) Lymph % (Auto) Faulkner % (Auto) Eos % (Auto) Baso % (Auto) Immature Gran # (Auto) Neut # (Auto) Lymph # (Auto) Faulkner # (Auto) Eos # (Auto) Baso # (Auto) Smudge Cells Toxic Granulation Anisocytosis Echinocytes Sodium Potassium Chloride Carbon Dioxide Anion Gap BUN Creatinine Est Cr Clr Drug Dosing Est GFR ( Amer) Est GFR (Non-Af Amer) BUN/Creatinine Ratio Glucose POC Glucose 167 H 169 H Calcium Magnesium Total Bilirubin AST ALT Alkaline Phosphatase Total Protein Albumin Globulin Albumin/Globulin Ratio TSH Flow Cytometry Comment Pending 09/02/18 09/02/18 16:37 20:42 WBC RBC Hgb Hct MCV MCH MCHC RDW Std Deviation RDW Coeff of Jackie Plt Count MPV Immature Gran % (Auto) Neut % (Auto) Lymph % (Auto) Faulkner % (Auto) Eos % (Auto) Baso % (Auto) Immature Gran # (Auto) Neut # (Auto) Lymph # (Auto) Faulkner # (Auto) Eos # (Auto) Baso # (Auto) Smudge Cells Toxic Granulation Anisocytosis Echinocytes Sodium Potassium Chloride Carbon Dioxide Anion Gap BUN Creatinine Est Cr Clr Drug Dosing Est GFR ( Amer) Est GFR (Non-Af Amer) BUN/Creatinine Ratio Glucose POC Glucose 160 H 149 H Calcium Magnesium Total Bilirubin AST ALT Alkaline Phosphatase Total Protein Albumin Globulin Albumin/Globulin Ratio TSH Flow Cytometry Comment Diagnostic Findings EKG - my read - a.fib with RVR, no ST changes (1) Diabetes Diabetes mellitus type: type 2 Diabetes mellitus prison insulin use: with terminal superintendent use Diabetes mellitus complication status: without complication Qualified Code(s): E11.9 - Type 2 diabetes mellitus without complications; Z79.4 - intermediate (current) use of insulin (2) Hyperlipidemia Hyperlipidemia type: mixed hyperlipidemia Qualified Code(s): E78.2 - Mixed hyperlipidemia (3) HTN (hypertension) Hypertension type: essential hypertension Qualified Code(s): I10 - Essential (primary) hypertension (4) Leukocytosis Leukocytosis type: unspecified Qualified Code(s): D72.829 - Elevated white blood cell count, unspecified
[2018-09-02] MEDS: APIXABAN 5 MG TABLET PO SCH (20:54)
[2018-09-02] MEDS: INSULIN GLARGINE SOLOSTAR 100 UNITS/ML 3 ML PEN SQ SCH (20:55)
[2018-09-03] MEDS: METOPROLOL TARTRATE 50 MG TAB PO SCH ×5 (00:05→20:48)
[2018-09-03] MEDS: metroNIDAZOLE 500 MG/100 ML BAG IV SCH (04:50)
[2018-09-03 07:31] LABS: Hematocrit (blood only) 43.6 % (42-52); Hemoglobin 15.1 g/dL (14.0-18.0); Mean Corpuscular Hgb Conc 34.6 g/dL (32-36); Mean Corpuscular Volume 92.4 fL (80-100); Mean Platelet Volume 10.2 fL (7.4-10.4); Platelet Count 454 K/uL (130-400); RDW Coefficient of Variation 14.3 % (11.5-14.5); Red Blood Count 4.72 M/uL (4.7-6.1); White Blood Count 18.03 K/uL (4.8-10.8)
[2018-09-03] MEDS: APIXABAN 5 MG TABLET PO SCH ×2 (07:32→20:48)
[2018-09-03] MEDS: NYSTATIN SUSP 500,000 U/5 ML UDC PO SCH ×4 (07:32→20:49)
[2018-09-03 08:04] LABS: BUN Creatinine Ratio 14.9 (10-20); Calcium 9.2 mg/dl (8.5-10.1); Creatinine Clr Calc Pharmacy 84.6 ml/min; Est GFR (African American) 91.9; Est GFR (Non-African American) 79.3; Potassium 4.5 mmol/L (3.5-5.1)
[2018-09-03] MEDS: INSULIN ASPART 100 UNITS/ML 3 ML PEN SC SCH ×4 (08:46→20:46)
[2018-09-03] MEDS: LACTOBACILLUS ACIDOPHILUS (FLORANEX) TAB PO SCH ×2 (12:17→16:35)
[2018-09-03] MEDS: CLINDAMYCIN HCL 150 MG CAP PO SCH ×2 (13:44→20:49)
--- NOTE | 2018-09-03 19:21 | Infectious Disease Progress Nt ---
Date of Service September 03, 2018 Assessment & Plan (1) Bacteremia due to Staphylococcus: Patient with coagulase-negative staph bacteremia, unclear significance given associated clinical syndrome, possible that this could be a contaminant. However, follow-up cultures are negative after treatment with clindamycin so either contaminant or suggest the clindamycin was affected. Wonder about possibility of primary HSV infection causing oral symptoms. Given that he is clinically improved and follow-up blood cultures are negative, would think the patient could be transitioned to oral antibiotics and would recommend continuation of clindamycin to complete 14 days of therapy total. Will discuss with all involved. Will follow. (2) Mouth ulcers: Subjective Patient seen in follow-up for staphylococcal bacteremia. At episode of rapid atrial fibrillation. Otherwise feeling well. Oral pain improved. Eating better. No fever. Review of Systems Review of Systems: All systems reviewed & are unremarkable except as noted in HPI & below Physical Exam Constitutional: WD/WN, vitals as above + obese Eyes: PERRL, conjunctivae normal, anicteric sclerae ENMT: Ears: no external ear abnormality Nose: no external nose abnormality Mouth: + oropharynx abnormality (Inflamed gingiva, mild tongue coating, erythema pharynx) Neck: trachea midline, no thyromegaly normal visual inspection Respiratory: normal respiratory effort, lungs clear to auscultation normal percussion; no respiratory distress Cardiovascular: RRR, no murmur, no edema Heart Sounds: no gallop and no cardiac rub Gastrointestinal (Abdomen): normal bowel sounds, soft, nontender, no hepatosplenomegaly Percussion/Palpation: no abdominal mass Musculoskeletal: Head/Neck/Chest: normocephalic, head atraumatic and neck supple Extremities: strength 5/5 throughout Skin: no rashes, warm and dry no lesions Neurologic: moves all extremities; no focal motor deficits Psychiatric: A+Ox3, euthymic affect Lymphatic: + cervical lymphadenopathy (Nontender cervical bilaterally); no axillary lymphadenopathy and no inguinal lymphadenopathy Results & Data Vital Signs (Past 12 Hours) Vital Signs Temp Pulse Pulse Resp BP Pulse Ox 09/03/18 19:12 37.0 C 45 L 18 135/77 96 09/03/18 16:00 67 09/03/18 15:00 36.9 C 65 20 121/78 95 09/03/18 13:33 95 09/03/18 11:03 36.7 C 90 18 137/98 96 06/18/19 07:34 37.0 C 61 20 117/76 95 Laboratory Results Short CBC 09/03/18 Range/Units 07:06 WBC 18.03 H (4.8-10.8) K/uL Hgb 15.1 (14.0-18.0) g/dL Hct 43.6 (42-52) % Plt Count 454 H (130-400) K/uL BMP 09/03/18 07:06 Sodium 139 Potassium 4.5 Chloride 107 Carbon Dioxide 27 BUN 15 Creatinine 0.97 Glucose 159 H Calcium 9.2 Diagnostic Findings Microbiology 08/30/18 16:39 Blood Aerobic Blood Culture - Preliminary No growth in Aerobic bottle after 48 hours. 08/30/18 16:39 Blood Anaerobic Blood Culture - Preliminary No growth in Anaerobic bottle after 48 hours. 08/30/18 16:39 Blood Aerobic Blood Culture - Preliminary No growth in Aerobic bottle after 48 hours. 08/30/18 16:39 Blood Anaerobic Blood Culture - Preliminary No growth in Anaerobic bottle after 48 hours.
[2018-09-03] MEDS: INSULIN GLARGINE SOLOSTAR 100 UNITS/ML 3 ML PEN SQ SCH (20:46)
--- NOTE | 2018-09-03 20:46 | Hospitalist Progress Note ---
Date of Service September 03, 2018 Assessment & Plan (1) Atrial fibrillation with RVR: Converted to NSR spontaneously today. Echo with recent preserved EF and normal valve function. TSH wnl. Cont metoprolol BID. CHADS score at least 2 -- anticoagulation recommended. Continue eliquis 5mg BID. Keep on tele 1 more night and if stable overnight then d/c home. Since he has no symptoms easily could have had this at home in the past and went undetectable. (2) Ventricular bigeminy: as seen on telemetry since he converted to NSR monitor overnight echo with preserved EF this admission (3) Bacteremia: Coag negative staph grew on 08/23/18 cultures. completed 7 days of Clindamycin as outpatient but still was unwell. repeat cultures showing no growth. echo without vegetations. continue Rocephin and Flagyl for now but can change back to oral clindamycin at discharge per ID recommendations. source?? coag negative staph is unlikely to be from oral cavity but his skin. no cellulitis or other skin issue at this time however. (4) Diabetes: cont lantus + novolog acceptable control at this time (5) Hyperlipidemia: resume statin at d/c (6) HTN (hypertension): changed atenolol to metoprolol in light of aLiviamanuela (7) Personal history of malignant melanoma of skin: noted lymphadenopathy likely NOT mets but this will need formal heme/onc consultation post-discharge (8) Dental caries: multiple remains on antibiotics clindamycin at d/c with oral surgery referral at discharge (9) Leukocytosis: leukocytosis, lymphocytosis, lymphadenopathy, and smudge cells all concerning for CLL or lymphoma process flow cytometry sent and is pending will need heme/onc consultation shortly after d/c (10) DVT prophylaxis: eliquis BID updated again today hopefully home tomorrow Subjective a.fib converted to NSR early this afternoon since then he has had NSR with bigeminy no bradycardia he feels good his mouth feels fine without any dental pain no dyspnea or chest pain anxious for d/c home Review of Systems Constitutional: no fever, no chills and no fatigue Respiratory: no cough, no dyspnea and no dyspnea on exertion Cardiovascular: no chest pain and no palpitations Gastrointestinal: no abdominal pain Physical Exam Constitutional: well developed and well nourished; no acute distress ENMT: Mouth: + dental caries and + poor dentition Respiratory: normal respiratory effort, lungs clear to auscultation Cardiovascular: Rate/Rhythm: regular rate; + abnormal rhythm Heart Sounds: normal S1 and normal S2; no murmur Vessels: posterior tibial pulses present and dorsalis pedis pulses present; no JVD Extremities: no edema Gastrointestinal (Abdomen): normal bowel sounds, soft, nontender, no hepatosplenomegaly Skin: no rashes, warm and dry Psychiatric: A+Ox3, euthymic affect Results & Data Vital Signs (Past 12 Hours) Vital Signs Temp Pulse Pulse Resp BP Pulse Ox 09/03/18 19:12 37.0 C 45 L 18 135/77 96 09/03/18 16:00 67 09/03/18 15:00 36.9 C 65 20 121/78 95 09/03/18 13:33 95 09/03/18 11:03 36.7 C 90 18 137/98 96 PG Care Time/CCT Total # of Minutes Spent Total Time Spent with Patient: Total time spent is greater than 50% in coordination of care (as documented) at patient's floor/unit and/or counseling patient: (1) Diabetes Diabetes mellitus complication status: without complication Diabetes mellitus penitentiary insulin use: with termite control technician use Diabetes mellitus type: type 2 Qualified Code(s): E11.9 - Type 2 diabetes mellitus without complications; Z79.4 - intermodal owner operator truck driver (current) use of insulin (2) Hyperlipidemia Hyperlipidemia type: mixed hyperlipidemia Qualified Code(s): E78.2 - Mixed hyperlipidemia (3) Leukocytosis Leukocytosis type: unspecified Qualified Code(s): D72.829 - Elevated white blood cell count, unspecified (4) HTN (hypertension) Hypertension type: essential hypertension Qualified Code(s): I10 - Essential (primary) hypertension
[2018-09-04 07:27] LABS: BUN Creatinine Ratio 21.9 (10-20); Calcium 8.8 mg/dl (8.5-10.1); Creatinine Clr Calc Pharmacy 83.8 ml/min; Est GFR (African American) 90.8; Est GFR (Non-African American) 78.4; Potassium 4.1 mmol/L (3.5-5.1)
[2018-09-04] MEDS: METOPROLOL TARTRATE 50 MG TAB PO SCH (08:41)
[2018-09-04] MEDS: NYSTATIN SUSP 500,000 U/5 ML UDC PO SCH (08:41)
[2018-09-04] MEDS: LACTOBACILLUS ACIDOPHILUS (FLORANEX) TAB PO SCH (08:43)
[2018-09-04] MEDS: APIXABAN 5 MG TABLET PO SCH (08:43)
[2018-09-04] MEDS: CLINDAMYCIN HCL 150 MG CAP PO SCH (08:43)
[2018-09-04] MEDS: INSULIN ASPART 100 UNITS/ML 3 ML PEN SC SCH (08:45)
--- NOTE | 2018-09-15 06:50 | Discharge Summary ---
Date of Service date of admission - August 30, 2018 date of discharge - September 04, 2018 Admission HPI Per Admitting Provider 67-year-old male history of hypertension, hyperlipidemia, diabetes and malignant melanoma presents from his primary care office with positive blood cultures. Patient was seen in our ED last Brady, 08/23/2018 for concern for sepsis related to dental abscesses. Patient was discharged on clindamycin. Blood cultures were obtained prior to leaving the ED. Patient's blood cultures grew coag negative staph x2 on 08/30/2018. Patient states that he has been feeling quite good over the past week since being started on the antibiotics. He has been using Magic mouthwash and nystatin swish and swallow for oral lesions. He endorses a soft foods diet. Reports less oral pain. Today he does not have any fevers, chills or fatigue. He denies any shortness of breath, cough or dysuria. Patient denies any wounds on his feet. Patient reports normal bowel movement. Principal Diagnosis coagulative negative staph bacteremia Discharge Exam Constitutional well developed and well nourished; no acute distress ENMT Mouth: + dental caries and + poor dentition Respiratory normal respiratory effort, lungs clear to auscultation Cardiovascular Rate/Rhythm: regular rate; + abnormal rhythm Heart Sounds: normal S1 and normal S2; no murmur Vessels: posterior tibial pulses present and dorsalis pedis pulses present; no JVD Extremities: no edema Gastrointestinal (Abdomen) normal bowel sounds, soft, nontender, no hepatosplenomegaly Skin no rashes, warm and dry Psychiatric A+Ox3, euthymic affect Lymphatic + cervical lymphadenopathy (multiple nodes, each over 1cm in size) and + axillary lymphadenopathy (left - 1-2cm in size ) Discharge Data Allergies Allergy/AdvReac Type Severity Reaction Status Date / Time Penicillins Allergy Intermediate Hives Verified 09/09/18 10:05 grass pollen AdvReac Intermediate Watery Eye Verified 09/09/18 10:05 house dust AdvReac Intermediate Watery Eye Verified 09/09/18 10:05 Consultations infectious disease - Mario Alberto Ortega MD physical therapy Ordered Studies 1. CT soft tissue neck - IMPRESSION: 1. No odontogenic abscess. No buccal mucosal hyperemia. 2. Numerous dental extractions with dental caries of residual teeth most prominently in the right mandibular canine and right maxillary molar. 3. Bilateral cervical lymphadenopathy. This could be reactive though an underlying lymphoproliferative disease or metastatic disease cannot be excluded. Follow-up is advised. 2. echocardiogram - * EF 65% * no valvular vegetations * mild pulmonary HTN Hospital Course (1) Bacteremia: Coag negative staph grew on 08/23/18 cultures. Repeat blood cultures were negative. Echo without vegetations. Received Rocephin and Flagyl while hospitalized. ID was consulted who recommended returning to use of oral clindamycin at discharge to complete his course. Source of the coag negative staph was uncertain. Coag negative staph was unlikely to be from the oral cavity even despite his poor dentition. He did not have cellulitis or other skin issue during the stay. (2) Atrial fibrillation with RVR: Patient developed asymptomatic a.fib with RVR about 2 days prior to discharge. Fortunately he converted back to NSR spontaneously. Echo with preserved EF and normal valve function. TSH wnl. His atenolol was stopped and he was converted to oral metoprolol for better rate control. CHADS score was at least 2 -- anticoagulation recommended. He will take eliquis 5mg BID. Since he had no symptoms from the a.fib he easily could have had this at home in the past and the arrhythmia went undetectable. He was advised to have follow-up with cardiology post-discharge. (3) Ventricular bigeminy: Seen on telemetry after he converted to NSR from a.fib. No apparent symptoms from such. echo with preserved EF this admission. Advised follow-up with cardiology post-discharge. (4) Diabetes: He will resume metformin, glimepiride, and long-acting insulin post- discharge. Sugars were well-controlled during the hospitalization. (5) Hyperlipidemia: continue statin. (6) HTN (hypertension): changed atenolol to metoprolol in light of a.fib BPs well-controlled while here (7) Personal history of malignant melanoma of skin: noted lymphadenopathy likely NOT mets but this will need formal heme/onc consultation post-discharge (8) Dental caries: multiple remains on antibiotics clindamycin at d/c with oral surgery referral at discharge (9) Leukocytosis: leukocytosis, lymphocytosis, lymphadenopathy, and smudge cells all concerning for CLL or lymphoma process flow cytometry sent and was pending at discharge will need formal heme/onc consultation shortly after d/c Total Time Total Time Spent Total Time Spent (In Minutes): 40 Total Time Includes: Examination of the Patient, Discharge Planning, Medication Reconciliation and Communication With Other Providers Discharge Plan Discharge Items Patient Disposition: Home - Self-Care Reason For Visit: BACTEREMIA Discharge Diagnosis: 1. bacteremia (blood stream infection) - resolved. 2. abnormal CBC (blood counts) - follow-up needed. 3. a.fib - NEW - now back in normal rhythm. 4. dental infection/cavities/decay - follow-up needed. Discharge Goals: Diagnostic testing and Therapeutic intervention Activity: As commented below Activity Comment: take it easy next 3-5 days then resume normal activities Driving/Machine Use: Resume 3 days after discharge Non-emergency contact: Primary Care Provider and Specialist Call non-emergency contact if: you have any medication questions, your symptoms worsen, your pain is not controlled, your pain is worsening, your pain is unusual for you, your pain is concerning for you and your temperature is above 100.5 Follow-up/Referrals: Cristofer Rock MD [Primary Care Provider] - (see Dr Rock within 5 days) Nadir Salguero DO [Physician] - 09/17/18 1:20 pm (An appt. has been made for you with Dr. Salguero on September 17 at 1:20pm. [facility] Alban Rodriguez MD [Physician] - (see Dr Rodriguez or one of his partners at [facility] - 2-3 weeks. diagnosis - a.fib) Azeem Vieyra DMD [Physician] - 09/13/18 11:30 am (A follow up appt. has been made for you with Dr. Azeem Vieyra, oral surgeon, for September 13 at 11:30am.) Diet: Carb Consistent or DM2 and Heart Healthy Diet Texture: Dental soft (bite-sized) Addtl Provider Instructions: From Jarek Olivia - hospitalist - You were treated for multiple issues including bacteremia/blood stream infection from staph, dental infection, and new-onset atrial fibrillation. Fortunately your a.fib resolved on 09/03/18 and you are now back in normal rhythm. Your bloodstream infection has resolved. Your teeth and mouth are also feeling better. Despite the abnormal CBC your counts are stable. Recommendations: 1. bloodstream infection/dental infection - * clindamycin antibiotic - 300mg three times a day for 7 days; start this as soon as you get home * probiotics (to help prevent diarrhea from the clindamycin) daily for 10 days * see Dr Vieyra - oral surgeon - for your teeth as scheduled; be sure to inform him that you are on blood thinners 2. a.fib - * STOP your atenolol * START metoprolol 50mg twice a day every day; start TONIGHT * START eliquis blood thinner 5mg twice a day every day; start TONIGHT * follow-up with cardiology for this problem 3. high blood pressure - * again STOP your atenolol (you will be taking metoprolol in its place) * LOWER your lisinopril dose by half to 20mg once a day * STOP your hydrochlorothiazide for now as your blood pressures have been controlled without it 4. abnormal blood counts - * see the [facility] - Dr Nadir Salguero - as scheduled 5. resume your normal diabetes regimen 6. Anticoagulation (blood thinner) instructions - * Eliquis is a medicine prescribed to prevent blood clots in your heart * Eliquis will thin your blood * Take your medications exactly as directed * Never skip a dose. Never take a double dose. If you miss a dose, take it as soon as you remember Risk of Adverse Drug Reactions and Interactions: * Eliquis increases your risk of bleeding * Generally speaking the food you eat and other medications do not interact with Eliquis; you do not need to modify your diet on Eliquis Call your Primary Care doctor if you experience any of the following: * Chest Pain * Sudden Shortness of Breath * Rapid or pounding heart beat * Fainting * Dizziness * Cough with blood or bloody sputum * Sweating more than normal * Bruises * Heavy or uncontrolled bleeding * Blood in your urine, stool or vomit * Black or tarry stools * Heavy nosebleeds * A cut or laceration that will not stop bleeding Caring for Your Self at Home: * DO NOT USE A TRADITIONAL STRAIGHT RAZOR WHEN SHAVING; PLEASE USE AN ELECTRIC SHAVER * PLEASE USE EXTREME CAUTION WHEN USING POWER TOOLS WHEN YOU WORK ON CARS GIVEN THE INCREASED RISK OF BLEEDING FROM A CUT OR INJURY; TAKE NECESSARY PRECAUTIONS TO PROTECT YOUR SKIN, EYES, ETC. 7. Follow-up - see separate section. 8. Return to [facility] if - * you have fevers over 100.5 degrees * you have severe diarrhea * you have chest pain, shortness of breath, rapid heart beating/palptations * you have severe dizziness, lightheadedness or feel like you could pass out * you have concerns about bleeding (rectal bleeding, bleeding from the bladder, etc) * you have worsening dental pain, facial swelling, etc * any other concerns Prescriptions: New metoprolol tartrate 50 mg Tablet 50 mg PO BID Qty: 60 RF: 5 Eliquis 5 mg Tablet 5 mg PO BID Qty: 60 RF: 5 Continued metformin 1,000 mg tablet 1,000 mg PO BIDM Qty: 180 RF: 0 simvastatin 10 mg tablet 10 mg PO HS Qty: 90 RF: 0 insulin degludec 100 unit/mL (3 mL) insulin pen 10 unit subcut HS Qty: 1 RF: 0 glimepiride 1 mg tablet 2 mg PO HS Qty: 270 RF: 0 cyanocobalamin (vitamin B-12) 1,000 mcg tablet 100 mcg PO QAM RF: 0 ascorbic acid (vitamin C) 500 mg capsule 2 cap PO QAM RF: 0 multivitamin [Daily Multi-Vitamin] tablet 1 tab PO QAM RF: 0 acetaminophen [Tylenol Extra Strength] 500 mg Tablet 1,000 mg PO TID RF: 0 calcium carbonate [Tums] 300 mg (750 mg) Tablet,Chewable 600 mg PO HS RF: 0 cholecalciferol (vitamin D3) [Vitamin D3] 1,000 unit Capsule 1,000 unit PO QAM RF: 0 Changed lisinopril 40 mg tablet 20 mg PO QAM Qty: 90 RF: 0 Discontinued hydrochlorothiazide 25 mg tablet 25 mg PO QAM Qty: 90 RF: 0 atenolol 100 mg tablet 100 mg PO QAM Qty: 90 RF: 0 nystatin 100,000 unit/mL suspension 1 ml PO QID Qty: 250 RF: 0 No Action pen needle, diabetic [ReliOn Pen [place]] 32 gauge x 5/32" needle .ROUTE .MEDSUPPLY Qty: 200 RF: 3 Stand-Alone Forms: My [facility]/Other Patient Handouts: Decay Tooth, Stroke Prevent Live W Atrial Fib, ED Afib, ED Abscess Dental Discharge Orders: Discharge Order (Routine); Ordered 09/04/18 Ordered By: Jarek Olivia Admission Data Admit Date/Time: 08/30/18 21:27 Attending Provider: Jarek Olivia Admit Provider: Gerardo Butler Primary Care Provider: Cristofer Rock Other Providers: Cresencio Frost ; Coni Gonzales Service: Telemetry Medical Other Interventions: Discharge Summary Assessment (RN) Last Done: 09/04/18 10:53 Pending Studies at Discharge: Yes Studies:: additional tests for your abnormal CBC/blood counts DC Date/Time DO NOT enter until pt leaves facility: 09/04/18 11:31
== END 2018-09-04 11:31 | disposition home or self-care (01) | DRG 872 ==
LOC: ED 16:06 → 2N 21:27 → SUATTDRO 21:27 → 2N 22:27

== ENCOUNTER 2025-01-28 16:50 | Inpatient (IN) ==
--- NOTE | 2025-01-28 17:00 | Emergency Department Note ---
Impression & Plan Atrial fibrillation with RVR, Acute kidney injury, Acute dehydration, Enteritis ED Provider Note NAME: KIERSTEN OBREGON AGE: 74 SEX: M : 1950 ARRIVES VIA: Walk-In INFORMANT: Patient, ED PROVIDER(S): Param Jones MD CHIEF COMPLAINT: Fall, dizziness, diarrhea MEDICAL DECISION MAKING: Patient presents with the above. IV was established and blood work was obtained. Patient was ordered 500 of IV fluids and IV Lopressor 5 mg given the A-fib RVR. Patient's blood work shows a white count of 50. The patient does have a known prior history of elevated white count. Hemoglobin of 12.9. Platelet count is unremarkable. Kidney function decreased to 1.41. The patient's baseline creatinine 0.75 likely clinically dehydrated. Magnesium of 1.4. I did order an additional 500 of IV fluids and additional 1 g of magnesium. Patient did have x-rays completed of the forearm as well as the bilateral wrist. The patient's plain films were unremarkable. Patient's A-fib heart rate did improve. Patient clinically feels improved blood pressure also improved. His [facility] hospital service Dr. Machado and the patient was admitted to the medicine service. Critical Care: I have personally spent 45 minutes of critical care time in direct management of this patient. This includes bedside care, interpretation of diagnostic studies, and testing, discussion with consultants, patient, and family members, and other require inpatient management activities. This 45 minutes is in excess of all separately billable procedures. Discussion w/ other healthcare providers: Dr. Machado inpatient medicine service Prior /Outside records reviewed: None Differential diagnosis: Infection, dehydration, metabolic abnormality, hypo/hyperglycemia, electrolyte imbalance, anemia, UTI, pneumonia, thyroid dysfunction among others were considered. Diagnostics, as interpreted by me: ECG: A-fib, RVR, ventricular rate of 128 normal QRS duration, normal axis no ST elevations, PVCs noted. Cardiac monitoring: An order was placed for continuous cardiac monitoring. The monitor shows a rate of 145 with irregularly irregular and tachycardic rhythm. Patient was placed on pulse oximetry Medical decision rules: None Imaging studies: I informally interpreted the patient's Right forearm x-ray does not show evidence of obvious fracture. with formal report to follow. HPI: Patient presents due to concern for weakness and fall. The patient reports he has had diarrhea since yesterday about 10 total bouts. No reported blood. He states that he tried to get up off the commode and fell backwards onto the commode. He states that he was lightheaded and dizzy. Patient denies any known sick contacts or recent travel. He denies any recent antibiotic use in a stream or well water use. Patient was reportedly found by his daughter and then called EMS. They do not think that he was down for prolonged period of time. Patient denies any head strike or LOC. He does take Eliquis for known history of A-fib. He denies any chest pains or shortness of breath. PAST MEDICAL HISTORY: See Below PAST SURGICAL HISTORY: See Below SOCIAL HISTORY: See Below HOME MEDICATIONS: See Below ALLERGIES: See Below VITALS: See Below PHYSICAL EXAMINATION: GENERAL: NAD, non-toxic. EYE EXAM: Normal conjunctiva. PERRL, no anisocoria and EOM's grossly intact w/o pain. OROPHARYNX: Moist mucus membranes, grossly normal dentition. NECK: Trachea midline, no stridor. Supple, no nuchal rigidity, no adenopathy, non-tender. No signs of meningismus. FROM of the neck with good chin to chest and neck extension. LUNGS: Clear to auscultation. Normal chest wall mechanics. HEART: Regular irregular and tachycardic, no MRG. ABDOMEN: Abdomen soft, non-tender, no masses, no rebound or guarding. BACK: No CVA TTP. SKIN: No rashes and no bruising. UPPER EXTREMITIES: Pain to palpation of the bilateral wrists as well as the right forearm. LOWER EXTREMITIES: Grossly normal, no edema. NEURO EXAM: Awake and alert, follows commands, no obvious facial asymmetry, normal speech, moves all 4 extremities. Past Med/Surg History Problem List (Updated 02/02/25 @ 08:04 by Param Jones MD) Enteritis (Acute) Acute dehydration (Acute) Acute kidney injury (Acute) Status post fall CLL (chronic lymphocytic leukemia) (Acute) Screening for prostate cancer Atrial fibrillation Ventricular bigeminy Atrial fibrillation with RVR (Acute) Leukocytosis (Acute) Vitamin D deficiency (Acute) History of SCC (squamous cell carcinoma) of skin (Acute) Hyperlipidemia (Acute) HTN (hypertension) (Acute) Obesity (Acute) Osteoarthritis of knee (Acute) Seborrheic keratosis (Acute) Type 2 diabetes mellitus without complication (Acute) Medical History (Updated 02/02/25 @ 08:04 by Param Jones MD) HTN (hypertension) HLD (hyperlipidemia) Hx of squamous cell carcinoma "dr assumed it was an SCC, pt knocked it off arm" CLL (chronic lymphocytic leukemia) Atrial fibrillation currently on eliquis; f/u PCP only Bacteremia resolved Melanoma dx 1989, sx and chemo Diabetes IDDM Surgical History Hx of left cataract extraction (01/07/25) Hx of colonoscopy History of bowel resection 1989, 04/20 to melanoma internally Status post Mohs surgery incorrect per pt. and dtr. Family History Father Myocardial infarction Acute leukemia Sister Acute leukemia Breast cancer Denies family history of Ovarian cancer Prostate cancer Lung cancer Colorectal cancer Stroke Social History Smoking Status: Never smoker Second Hand Exposure: No; Do You Dip or Chew Tobacco: No; Tobacco Cessation Education Requested by Patient: No Hx Alcohol Use: No Hx Substance Use: No Preferred Language: Citizen Of The [place] Communication Ability: Effective Visual Impairment: No Limitations Hearing Ability: Normal Windows 7 Deployment Lead Required: No Beliefs That Will Affect Care: None marital status: Current Living Situation: Alone Current Living Situation Comment: lives at home alone, daughter lives close current occupational status: retired Other Information That Helps Us Care for You: No Feels Safe at Home: Yes Safety Concerns: Feels Safe At This Time Childhood Exposure to Second-Hand Smoke: No Physical Activity Frequency: 3-4 Times per Week Seatbelt Use: always Assistive Devices: Walker Allergies Allergies Allergy/AdvReac Type Severity Reaction Status Date / Time Penicillins Allergy Intermediate Hives Verified 01/28/25 19:00 grass pollen AdvReac Intermediate Watery Eye Verified 01/28/25 19:00 house dust AdvReac Intermediate Watery Eye Verified 01/28/25 19:00 Home Meds Home Medications Medication Instructions Recorded Confirmed ascorbic acid (vitamin C) 500 mg 2 cap PO QAM 08/23/18 01/28/25 capsule cholecalciferol (vitamin D3) 25 1,000 unit PO QAM 06/07/19 11/12/25 mcg (1,000 unit) capsule (Vitamin D3) multivitamin (Daily Multi-Vitamin 1 tab PO QAM 08/23/18 01/28/25 tablet) acetaminophen 500 mg tablet 250 mg PO BID Pain 03/27/19 01/28/25 (Tylenol Extra Strength) calcium carbonate (Tums) 600 mg PO HS PRN Heartburn 03/27/19 01/28/25 cyanocobalamin (vitamin B-12) 1,000 mcg PO QAM 04/20/22 01/28/25 1,000 mcg tablet blood sugar diagnostic (OneTouch 11/08/23 01/13/25 Verio test strips) empagliflozin 10 mg tablet 10 mg PO QAM 12/31/24 01/28/25 (Jardiance) insulin glargine 100 unit/mL (3 12 unit subcut HS 12/31/24 01/28/25 mL) subcutaneous pen (Lantus Solostar U-100 Insulin) 3 In 1 Eye Drop Post Cataracts 1 drp ophthalmic (eye) DIRECTED 01/28/25 01/28/25 Previous Rx's Medication Instructions Recorded pen needle, diabetic 32 gauge x #90 ea 02/26/24 532" simvastatin 10 mg tablet 10 mg PO HS #90 tabs 05/05/24 blood-glucose meter (OneTouch #1 ea 05/16/24 Verio Flex Meter) lisinopril 20 mg tablet 20 mg PO DAILY #90 tabs 07/28/24 apixaban 5 mg tablet (Eliquis) 5 mg PO BID #60 tabs 09/08/24 metoprolol tartrate 25 mg tablet 25 mg PO BID #180 tabs 09/09/24 metformin 1,000 mg tablet 1,000 mg PO BID #180 tabs 09/12/24 Results & Data (ED) Vital Signs Vital Signs - 24 hr 01/28/25 16:52 01/28/25 17:31 01/28/25 17:34 Temperature 36.6 C Temperature Source Oral Pulse Rate 88 147 H Pulse Rate [Finger] 120 H Respiratory Rate 16 14 Respiratory Effort / Characteristics Non-Labored Respiratory Depth Normal Respiratory Pattern Regular Blood Pressure 85/57 L 114/73 Blood Pressure [Right Arm] 114/73 Blood Pressure Mean 66 Blood Pressure Mean [Right Arm] 86 Pulse Oximetry 97 95 Oxygen Delivery Method Room Air Room Air Sepsis Recent Fever Within 48 Hours No Sepsis New/Unexplained Change in Mental Status N/A Sepsis Action Taken by Nursing No Action Required Laboratory Data 02/02/25 06:05 02/01/25 06:43 Lab Results 01/28/25 01/28/25 Range/Units 17:02 17:12 WBC 50.89 H* (4.8-10.8) K/ul RBC 4.14 L (4.70-6.10) M/uL Hgb 12.9 L (14.0-18.0) g/dL POC Hgb 13.9 L (14.0-18.0) g/dl Hct 39.2 L (42.0-52.0) % POC Hct 41 L (42-52) % MCV 94.7 (80.0-100.0) fL MCH 31.2 (25.0-34.0) pg MCHC 32.9 (32.0-36.0) g/dL RDW Std Deviation 65.3 H (36.4-46.3) fL RDW Coeff of Jackie 19.3 H (11.5-14.5) % Plt Count 192 (130-400) K/uL MPV 11.2 (9.4-12.4) fL Neutrophils % (Manual) 27 % Lymphocytes % (Manual) 71 % Monocytes % (Manual) 2 % Eosinophils % (Manual) 0 % Neutrophils # (Manual) 13.74 H (1.40-6.50) K/uL Total Absolute Neuts 13.74 H (1.4-6.5) K/uL Lymphocytes # (Manual) 36.13 H (1.2-3.4) K/uL Total Abs Lymphocytes 36.13 H (1.2-3.4) K/uL Monocytes # (Manual) 1.02 H (0.11-0.59) K/uL Eosinophils # (Manual) 0.00 (0-0.50) K/uL Smudge Cells Present POC Sodium 136 (135-144) mmol/L Sodium 134 L (136-145) mmol/L POC Potassium 4.4 (3.3-5.0) mmol/L Potassium 4.8 (3.5-5.1) mmol/L POC Chloride 102 (101-112) mmol/L Chloride 102 (98-107) mmol/L Carbon Dioxide 21 (21-32) mmol/L POC Total CO2 20 L (24-31) mmol/L Anion Gap 11 (3-11) POC Anion Gap 18.0 (16-25) mmol/L POC BUN 52 H (7-18) mg/dl BUN 57 H (6-23) mg/dl Creatinine 1.41 H (0.6-1.4) mg/dl POC Creatinine 1.6 H (0.6-1.3) mg/dl Est Cr Clr Drug Dosing 46.0 ml/min eGFR 51.65 BUN/Creatinine Ratio 40.4 H (10-20) Glucose 254 H (70-99(Fasting)) mg/dl POC Glucose (other) 245 H (70-99) mg/dl Calcium 9.3 (8.6-10.3) mg/dl POC Ioniz Calcium Jayne 1.18 (1.12-1.32) mmol/l Magnesium 1.4 L (1.7-2.4) mg/dl Total Bilirubin 1.2 H (0.2-1.0) mg/dl AST 28 (13-39) U/L ALT 20 (7-52) U/L Alkaline Phosphatase 67 (34-104) U/L Troponin I High Sens 16.0 (0-20) pg/ml Total Protein 6.4 (6.0-8.3) gm/dl Albumin 4.0 (3.4-5.0) gm/dl Globulin 2.4 L (2.5-4.0) gm/dl Albumin/Globulin Ratio 1.7 (0.9-2) Administered Medications Acetaminophen (Acetaminophen 500 Mg Tab) 1,000 mg PO Q8H PRN PRN Reason: Pain or Fever Stop: 03/02/25 19:44 Last Admin: 02/01/25 20:09 Dose: 1,000 mg Documented By: monique Admin: 01/31/25 20:52 Dose: 1,000 mg Documented By: monique Apixaban (Apixaban 5 Mg Tablet) 5 mg PO BID MARCELA Stop: 02/27/25 22:10 Last Admin: 02/01/25 20:10 Dose: 5 mg Documented By: monique Admin: 02/01/25 09:11 Dose: 5 mg Documented By: Admin: 01/31/25 20:54 Dose: 5 mg Documented By: monique Admin: 01/31/25 08:31 Dose: 5 mg Documented By: Admin: 01/30/25 20:40 Dose: 5 mg Documented By: rmt Admin: 01/30/25 08:54 Dose: 5 mg Documented By: Admin: 01/29/25 21:08 Dose: 5 mg Documented By: rmt Admin: 01/29/25 08:17 Dose: 5 mg Documented By: dlf Admin: 01/28/25 23:36 Dose: 5 mg Documented By: ANDRE Ascorbic Acid (Ascorbic Acid 500 Mg Tab) 1,000 mg PO QAM MARCELA Stop: 02/28/25 08:59 Last Admin: 02/01/25 09:11 Dose: 1,000 mg Documented By: Admin: 01/31/25 08:31 Dose: 1,000 mg Documented By: Admin: 01/30/25 08:54 Dose: 1,000 mg Documented By: Admin: 01/29/25 08:17 Dose: 1,000 mg Documented By: dlf Cyanocobalamin (Cyanocobalamin (B-12) 500 Mcg Tablet) 1,000 mcg PO QAM MARCELA Stop: 02/28/25 08:59 Last Admin: 02/01/25 09:10 Dose: 1,000 mcg Documented By: Admin: 01/31/25 08:30 Dose: 1,000 mcg Documented By: Admin: 01/30/25 08:54 Dose: 1,000 mcg Documented By: Admin: 01/29/25 08:17 Dose: 1,000 mcg Documented By: dlf Empagliflozin (Empagliflozin 10 Mg Tab) 10 mg PO DAILY MARCELA Stop: 03/02/25 08:59 Last Admin: 02/01/25 09:12 Dose: 10 mg Documented By: Admin: 01/31/25 10:34 Dose: 10 mg Documented By: TB Insulin Aspart (Insulin Aspart Per Unit Charge) 0 units SC ACHS MARCELA Stop: 02/27/25 22:10 Last Admin: 02/01/25 20:07 Dose: Not Given Documented By: monique Admin: 02/01/25 17:32 Dose: 4 units Documented By: CADENCE Co-signed By: LA Admin: 02/01/25 12:31 Dose: 5 units Documented By: CADENCE Co-signed By: LA Admin: 02/01/25 09:09 Dose: 6 units Documented By: TB Co-signed By: DOV Admin: 01/31/25 20:37 Dose: Not Given Documented By: rmt Admin: 01/31/25 17:31 Dose: 11 units Documented By: TB Co-signed By: nickl Admin: 01/31/25 12:45 Dose: 6 units Documented By: TB Co-signed By: LA Admin: 01/31/25 08:29 Dose: 8 units Documented By: CADENCE Co-signed By: Admin: 01/30/25 20:40 Dose: 4 units Documented By: monique Co-signed By: NRS Admin: 01/30/25 17:46 Dose: 2 units Documented By: CADENCE Co-signed By: LA Admin: 01/30/25 12:39 Dose: 5 units Documented By: CADENCE Co-signed By: LA Admin: 01/30/25 08:23 Dose: 4 units Documented By: CADENCE Co-signed By: LA Admin: 01/29/25 20:38 Dose: Not Given Documented By: monique Admin: 01/29/25 17:03 Dose: 4 units Documented By: alexander Co-signed By: Admin: 01/29/25 11:57 Dose: 3 units Documented By: alexander Co-signed By: Admin: 01/29/25 08:16 Dose: 2 units Documented By: alexander Co-signed By: Admin: 01/28/25 22:48 Dose: Not Given Documented By: [id number] Co-signed By: ANDRE Metformin HCl (Metformin Hcl 500 Mg Tab) 1,000 mg PO BIDM MARCELA Stop: 03/02/25 08:59 Last Admin: 02/01/25 17:33 Dose: 1,000 mg Documented By: Admin: 02/01/25 09:12 Dose: 1,000 mg Documented By: Admin: 01/31/25 17:37 Dose: 1,000 mg Documented By: Admin: 01/31/25 10:34 Dose: 1,000 mg Documented By: TB Metoprolol Tartrate (Metoprolol Tartrate 50 Mg Tab) 50 mg PO BID MARCELA Stop: 02/28/25 10:44 Last Admin: 02/01/25 20:11 Dose: 50 mg Documented By: rmt Admin: 02/01/25 09:11 Dose: 50 mg Documented By: Admin: 01/31/25 20:53 Dose: 50 mg Documented By: rmt Multivitamins (Multivitamin Tab) 1 tab PO QAM MARCELA Stop: 02/28/25 08:59 Last Admin: 02/01/25 09:10 Dose: 1 tab Documented By: Admin: 01/31/25 08:30 Dose: 1 tab Documented By: Admin: 01/30/25 08:55 Dose: 1 tab Documented By: Admin: 01/29/25 08:17 Dose: 1 tab Documented By: dlf 3 In 1 Right Eye Drops: Non-Formulary Patient's Own Med 1 each OPR TID MARCELA Stop: 02/28/25 20:59 Last Admin: 02/01/25 20:09 Dose: 1 drops Documented By: rmt Admin: 02/01/25 15:20 Dose: 1 drops Documented By: Admin: 02/01/25 09:10 Dose: 1 drops Documented By: Admin: 01/31/25 20:54 Dose: 1 drops Documented By: rmt Admin: 01/31/25 13:40 Dose: 1 drops Documented By: Admin: 01/31/25 08:30 Dose: 1 drops Documented By: Admin: 01/30/25 20:38 Dose: 1 drops Documented By: rmt Admin: 01/30/25 14:02 Dose: 1 drops Documented By: Admin: 01/30/25 08:56 Dose: 1 drops Documented By: Admin: 01/29/25 21:06 Dose: 1 drops Documented By: rmt 3 In 1 Left Eye Drops: Non-Formulary Patient's Own Med 1 each OPL DAILY MARCELA Stop: 02/28/25 20:59 Last Admin: 02/01/25 09:09 Dose: 1 drops Documented By: Admin: 01/31/25 08:30 Dose: 1 drops Documented By: Admin: 01/30/25 08:55 Dose: 1 drops Documented By: Admin: 01/29/25 21:07 Dose: 1 drops Documented By: rmt Pantoprazole Sodium (Pantoprazole 40 Mg Tab) 40 mg PO DAILY MARCELA Stop: 03/01/25 08:59 Last Admin: 02/01/25 09:10 Dose: 40 mg Documented By: Admin: 01/31/25 08:31 Dose: 40 mg Documented By: Admin: 01/30/25 08:56 Dose: 40 mg Documented By: TB Simvastatin (Simvastatin 10 Mg Tab) 10 mg PO HS MARCELA Stop: 02/27/25 22:10 Last Admin: 02/01/25 20:11 Dose: 10 mg Documented By: rmt Admin: 01/31/25 20:54 Dose: 10 mg Documented By: rmt Admin: 01/30/25 20:40 Dose: 10 mg Documented By: rmt Admin: 01/29/25 21:09 Dose: 10 mg Documented By: rmt Admin: 01/28/25 23:36 Dose: 10 mg Documented By: ANDRE Vitamin D (Cholecalciferol 25 Mcg (1000 Units) Tab) 25 mcg PO QAM MARCELA Stop: 02/28/25 08:59 Last Admin: 02/01/25 09:10 Dose: 25 mcg Documented By: Admin: 01/31/25 08:30 Dose: 25 mcg Documented By: Admin: 01/30/25 08:54 Dose: 25 mcg Documented By: Admin: 01/29/25 08:17 Dose: 25 mcg Documented By: dlf Discontinued Medications Sodium Chloride (Nss) 500 mls @ 999 mls/hr IV .Q31M AMRCELA Stop: 01/28/25 17:45 Last Infusion: 01/28/25 17:49 Dose: Infused Documented By: Admin: 01/28/25 17:16 Dose: 999 mls/hr Documented By: ASW Acetaminophen (Ofirmev) 1,000 mg in 100 mls @ 400 mls/hr IV NOW STA Stop: 01/28/25 17:24 Last Infusion: 01/28/25 17:49 Dose: Infused Documented By: Admin: 01/28/25 17:16 Dose: 400 mls/hr Documented By: ASW Sodium Chloride (Nss) 500 mls @ 999 mls/hr IV .Q31M ONE Stop: 01/28/25 18:20 Last Infusion: 01/28/25 18:05 Dose: Infused Documented By: Admin: 01/28/25 18:04 Dose: 999 mls/hr Documented By: DEEPA Magnesium Sulfate/Dextrose (Magnesium Sulfate / D5w) 1 gm in 100 mls @ 50 mls/hr IV Q2H MARCELA Stop: 01/28/25 23:44 Last Infusion: 01/28/25 23:43 Dose: Infused Documented By: Admin: 01/28/25 21:07 Dose: 50 mls/hr Documented By: Infusion: 01/28/25 21:07 Dose: Infused Documented By: Admin: 01/28/25 19:40 Dose: 50 mls/hr Documented By: IVANNA Sodium Chloride (Nss) 1,000 mls @ 999 mls/hr IV .Q1H1M MARCELA Stop: 01/28/25 21:07 Last Infusion: 01/28/25 23:42 Dose: Infused Documented By: Admin: 01/28/25 20:23 Dose: 999 mls/hr Documented By: IVANNA Pantoprazole Sodium (Protonix) 40 mg in 10 mls @ 5 mls/min IV NOW ONE Stop: 01/28/25 20:09 Last Admin: 01/28/25 21:07 Dose: 5 mls/min Documented By: IVANNA Pantoprazole Sodium (Protonix) 40 mg in 10 mls @ 5 mls/min IV DAILY MARCELA Stop: 02/28/25 08:59 Last Admin: 01/29/25 08:19 Dose: 5 mls/min Documented By: alexander Lactated Ringer's (Lr) 1,000 mls @ 80 mls/hr IV .[id number] STA Stop: 01/29/25 09:43 Last Infusion: 01/29/25 09:57 Dose: Infused Documented By: alexander Admin: 01/28/25 22:48 Dose: 80 mls/hr Documented By: [id number] Acetaminophen (Ofirmev) 1,000 mg in 100 mls @ 400 mls/hr IV Q8H PRN PRN Reason: Pain or Fever Stop: 01/31/25 22:10 Last Infusion: 01/30/25 09:01 Dose: Infused Documented By: Admin: 01/30/25 08:23 Dose: 400 mls/hr Documented By: Infusion: 01/29/25 22:04 Dose: Infused Documented By: monique Admin: 01/29/25 21:09 Dose: 400 mls/hr Documented By: monique Infusion: 01/29/25 12:13 Dose: Infused Documented By: alexander Admin: 01/29/25 11:58 Dose: 400 mls/hr Documented By: dlf Infusion: 01/29/25 03:53 Dose: Infused Documented By: Admin: 01/29/25 02:46 Dose: 400 mls/hr Documented By: ANDRE Lactated Ringer's (Lr) 500 mls @ 999 mls/hr IV .Q31M ONE Stop: 01/29/25 02:40 Last Infusion: 01/29/25 03:53 Dose: Infused Documented By: Admin: 01/29/25 02:32 Dose: 999 mls/hr Documented By: ANDRE Magnesium Sulfate/Dextrose (Magnesium Sulfate / D5w) 1 gm in 100 mls @ 50 mls/hr IV Q2H MARCELA Stop: 01/30/25 06:29 Last Infusion: 01/30/25 06:16 Dose: Infused Documented By: monique Admin: 01/30/25 04:08 Dose: 50 mls/hr Documented By: monique Infusion: 01/30/25 04:08 Dose: Infused Documented By: monique Admin: 01/30/25 02:34 Dose: 50 mls/hr Documented By: monique Methylprednisolone 40 mg/ (Syringe) 0.64 mls @ 1.5 mls/min IV TID MARCELA Stop: 03/01/25 13:59 Last Admin: 01/31/25 08:30 Dose: 1.5 mls/min Documented By: Admin: 01/30/25 20:39 Dose: 1.5 mls/min Documented By: monique Admin: 01/30/25 14:02 Dose: 1.5 mls/min Documented By: CADENCE Digoxin 500 mcg/ Syringe 10 mls @ 2 mls/min IV NOW STA Stop: 02/01/25 10:04 Last Admin: 02/01/25 10:26 Dose: 2 mls/min Documented By: CADENCE Digoxin 250 mcg/ Syringe 10 mls @ 2 mls/min IV ONE ONE Stop: 02/01/25 18:04 Last Admin: 02/01/25 17:34 Dose: 2 mls/min Documented By: CADENCE Insulin Glargine (Lantus Per Unit Charge) 5 units SC HS MARCELA Stop: 02/27/25 22:14 Last Admin: 01/28/25 22:48 Dose: 5 units Documented By: [id number] Co-signed By: ANDRE Magnesium Sulfate/Dextrose (Magnesium Sulfate 1gm / D5w Bag) Confirm Administered Dose 1 gm IV .STK-MED ONE Stop: 01/28/25 19:36 Last Admin: 01/28/25 19:40 Dose: Not Given Documented By: IVANNA Metoprolol Tartrate (Metoprolol Tartrate 1 Mg/Ml Vial) 5 mg IV NOW STA Stop: 01/28/25 17:11 Last Admin: 01/28/25 17:31 Dose: 5 mg Documented By: DEEPA Metoprolol Tartrate (Metoprolol Tartrate 25 Mg Tab) 25 mg PO BID MARCELA Stop: 02/28/25 10:44 Last Admin: 01/31/25 08:31 Dose: 25 mg Documented By: Admin: 01/30/25 20:40 Dose: 25 mg Documented By: monique Admin: 01/30/25 08:55 Dose: 25 mg Documented By: Admin: 01/29/25 21:08 Dose: 25 mg Documented By: monique Admin: 01/29/25 10:59 Dose: 25 mg Documented By: alexander Metoprolol Tartrate (Metoprolol Tartrate 1 Mg/Ml Vial) 5 mg IV NOW STA Stop: 01/31/25 11:04 Last Admin: 01/31/25 11:10 Dose: 5 mg Documented By: CADENCE Metoprolol Tartrate (Metoprolol Tartrate 1 Mg/Ml Vial) 5 mg IV NOW STA Stop: 01/31/25 13:31 Last Admin: 01/31/25 13:39 Dose: 5 mg Documented By: CADENCE Miscellaneous (3 In 1 Post Cataract Eye Drops~Order Awaiting Action) 1 each N/A QS MARCELA Stop: 02/28/25 07:59 Last Admin: 01/29/25 18:10 Dose: Not Given Documented By: alexander Admin: 01/29/25 08:16 Dose: Not Given Documented By: alexander Prednisone (Prednisone 10 Mg Tablet) 10 mg PO TID MARCELA Stop: 03/02/25 13:59 Last Admin: 02/01/25 09:12 Dose: 10 mg Documented By: Admin: 01/31/25 20:53 Dose: 10 mg Documented By: emmanuelt Admin: 01/31/25 13:40 Dose: 10 mg Documented By: CADENCE Prednisone (Prednisone 10 Mg Tablet) 10 mg PO BID MARCELA Stop: 03/03/25 20:59 Last Admin: 02/01/25 20:10 Dose: 10 mg Documented By: rmt Discharge Plan Visit Data Chief Complaint: Fall Stated Complaint: FALL HURT MY WRIST ED Provider: Param Jones Discharge Problem: Atrial fibrillation with RVR, Acute kidney injury, Acute dehydration, Enteritis Patient Disposition: Admitted As Inpatient Condition: Good Discharge Instructions Interventions: ED Discharge Assessment Last Done: 01/28/25 22:06
[2025-01-28] MEDS: SODIUM CHLORIDE 0.9% 500 ML IV SCH (17:16)
[2025-01-28] MEDS: ACETAMINOPHEN 1,000 MG/100 ML VIAL IV STA (17:16)
[2025-01-28 17:28] LABS: Hematocrit (blood only) 39.2 % (42.0-52.0); Hemoglobin 12.9 g/dL (14.0-18.0); Mean Corpuscular Hemoglobin 31.2 pg (25.0-34.0); Mean Corpuscular Volume 94.7 fL (80.0-100.0); Platelet Count 192 K/uL (130-400); RDW Standard Deviation 65.3 fL (36.4-46.3); Red Blood Count 4.14 M/uL (4.70-6.10); White Blood Count 50.89 K/ul (4.8-10.8)
[2025-01-28] MEDS: METOPROLOL TARTRATE 1 MG/ML VIAL IV STA (17:31)
[2025-01-28 17:39] LABS: Alanine Aminotransferase 20.0 U/L (7-52); Albumin Globulin Ratio 1.7 (0.9-2); Albumin Level 4.0 gm/dl (3.4-5.0); Alkaline Phosphatase 67.0 U/L (34-104); Anion Gap 11.0 (3-11); Bilirubin,Total 1.2 mg/dl (0.2-1.0); Blood Urea Nitrogen 57.0 mg/dl (6-23); Calcium 9.3 mg/dl (8.6-10.3); Carbon Dioxide 21.0 mmol/L (21-32); Chloride 102.0 mmol/L (98-107); Creatinine Clr Calc Pharmacy 46.0 ml/min; Globulin 2.4 gm/dl (2.5-4.0); Glucose 254.0 mg/dl (70-99(Fasting)); Magnesium 1.4 mg/dl (1.7-2.4); Potassium 4.8 mmol/L (3.5-5.1); Sodium 134.0 mmol/L (136-145); Total Protein 6.4 gm/dl (6.0-8.3)
[2025-01-28] MEDS: SODIUM CHLORIDE 0.9% 500 ML IV ONE (18:04)
--- NOTE | 2025-01-28 18:29 | XRay Report ---
History: Pain Comparison: None Findings/impression: There is no acute fracture or dislocation. No acute bony abnormality of the right forearm. Moderate right radiocarpal wrist degenerative changes, associated with chondrocalcinosis. There is mild soft tissue swelling noted about the right wrist. Mild left wrist joint degenerative changes associated with chondrocalcinosis. Severe left first CMC joint and moderate triscaphe joint degenerative change. Mild right first CMC joint degenerative change consistent with osteoarthritis. Mild arterial vascular calcifications. Osteopenia. Electronically signed by Parmjit May 01-28-2025 6:28 PM
[2025-01-28 18:37] LABS: ALC (manual) 36.13 K/uL (1.2-3.4); ANC (manual) 13.74 K/uL (1.4-6.5); Smudge Cells Present
[2025-01-28] MEDS: MAGNESIUM SULFATE / D5W 1 GM/100 ML BAG IV SCH (19:40)
[2025-01-28] MEDS: MAGNESIUM SULFATE 1GM / D5W BAG IV ONE (19:40)
[2025-01-28] MEDS: SODIUM CHLORIDE 0.9% 1,000 ML IV SCH (20:23)
--- NOTE | 2025-01-28 20:27 | History & Physical Report ---
Date of Service January 28, 2025 Assessment & Plan (1) Status post fall: (2) Atrial fibrillation with RVR: (3) Acute kidney injury: (4) CLL (chronic lymphocytic leukemia): Plan The patient is a 74-year-old male with past medical history including CLL, atrial fibrillation, ventricular bigeminy, history of A-fib with RVR, vitamin D deficiency, SCC of skin, hyperlipidemia, hypertension, knee osteoarthritis, and diabetes mellitus type 2. He presents to the emergency department with complaint of feeling diarrhea, lightheaded, dizzy, and tripped and fell backwards. He denies hitting his head he reports breaking his fall with his hands, and was primarily complaining of bilateral wrist pain and right knee pain. X-rays in the emergency department revealed no acute findings on x-ray of right wrist, left wrist, and right forearm. Abnormal laboratories: WBC stable at 50.89, glucose 254, creatinine 1.41, magnesium 1.4. EKG showed atrial fibrillation with RVR, for which from the ED he received Lopressor 5 mg IV, and 2 normal saline boluses of 500 mL each. He also received Tylenol 1 g IV for bilateral wrist pain. [facility] symptoms of generalized fatigue, recent fall, atrial fibrillation with RVR, and hypomagnesemia. Status post fall- Appears to be secondary to generalized weakness, dehydration, hyperglycemia. If persistent, will need PT/OT assessment and possible inpatient rehab Atrial fibrillation with RVR/hypotension- The patient will be admitted to telemetry for serial cardiac enzymes, serial EKG's, cardiac rhythm monitoring and a 2-D echocardiogram with Dopplers. The blood pressure at its lowest was 87/61 Most recent echocardiogram from 08/31/2018 ejection fraction 65-70% Contributing factors including but not limited to: Hypomagnesemia, dehydration Magnesium level 1.4 on admission, will give 2 g of magnesium sulfate IV, repeat laboratories in a.m. Heart rate decreased to 102, with blood pressure 106/71 after IV fluid resuscitation is noted. Patient has not required additional negative inotropes other than initial dosing of Lopressor 5 mg IV from the ED. He is fluid responsive as noted. Continue apixaban RAFAEL- Creatinine 1.41, with base 0.75- Received 500 mL boluses of normal saline IV x 2 from the ED Given additional 1 L normal saline bolus now, required additional LR 500 mL bolus 2 hours later, and has maintenance fluids of LR at 80 mL/h x 1 L. Repeat laboratories in the a.m. Hold lisinopril and Jardiance for now Diabetes mellitus- Glucose 254 at admission Hold metformin Reduce glargine from 10 units that he takes at bedtime to 5 units. He does not take 12 units as listed on his med list. Placed on Accu-Cheks with NovoLog SSI Check hemoglobin A1c Hypomagnesemia- Magnesium 1.4 admission, likely secondary to diarrhea, which at this point appears to be improved Bilateral wrist pain- Patient with significant osteoarthritis as described on x-rays. Unfortunately managed to fall and injure both wrists further. If persistent/progressive pain, consult orthopedic surgery could be considered for possible injections. CLL- WBC 50.89, in his usual range Will follow serially History of Present Illness Primary Care Provider: Cristofer Rock MD The patient is a 74-year-old male with past medical history including CLL, atrial fibrillation, ventricular bigeminy, history of A-fib with RVR, vitamin D deficiency, SCC of skin, hyperlipidemia, hypertension, knee osteoarthritis, and diabetes mellitus type 2. He presents to the emergency department with complaint of feeling lightheaded, dizzy, and tripped and fell backwards. He denies hitting his head he reports breaking his fall with his hands, and was primarily complaining of bilateral wrist pain and right knee pain. X-rays in the emergency department revealed no acute findings on x-ray of right wrist, left wrist, and right forearm. Abnormal laboratories: WBC stable at 50.89, glucose 254, creatinine 1.41, magnesium 1.4. EKG showed atrial fibrillation with RVR, for which from the ED he received Lopressor 5 mg IV, and 2 normal saline boluses of 500 mL each. He also received Tylenol 1 g IV for bilateral wrist pain. The [facility] to symptoms of generalized fatigue, recent fall, atrial fibrillation with RVR, and hypomagnesemia. Allergies Allergy/AdvReac Type Severity Reaction Status Date / Time Penicillins Allergy Intermediate Hives Verified 01/28/25 19:00 grass pollen AdvReac Intermediate Watery Eye Verified 01/28/25 19:00 house dust AdvReac Intermediate Watery Eye Verified 01/28/25 19:00 Home Medications Medication Instructions Recorded Confirmed Type ascorbic acid (vitamin C) 500 mg 2 cap PO QAM 08/23/18 01/28/25 History capsule cholecalciferol (vitamin D3) 25 1,000 unit PO QAM 08/23/18 01/28/25 History mcg (1,000 unit) capsule (Vitamin D3) multivitamin (Daily Multi-Vitamin 1 tab PO QAM 08/23/18 01/28/25 History tablet) acetaminophen 500 mg tablet 250 mg PO BID Pain 03/27/19 01/28/25 History (Tylenol Extra Strength) calcium carbonate (Tums) 600 mg PO HS PRN Heartburn 03/27/19 01/28/25 History cyanocobalamin (vitamin B-12) 1,000 mcg PO QAM 04/20/22 01/28/25 History 1,000 mcg tablet blood sugar diagnostic (OneTouch 11/08/23 01/13/25 History Verio test strips) pen needle, diabetic 32 gauge x #90 ea 02/26/24 01/13/25 Rx 5/32" simvastatin 10 mg tablet 10 mg PO HS #90 tabs 05/05/24 01/28/25 [facility] 05/16/24 01/13/25 Rx Verio Flex Meter) lisinopril 20 mg tablet 20 mg PO DAILY #90 tabs 07/28/24 01/28/25 Rx apixaban 5 mg tablet (Eliquis) 5 mg PO BID #60 tabs 09/08/24 01/28/25 Rx metoprolol tartrate 25 mg tablet 25 mg PO BID #180 tabs 09/09/24 01/28/25 Rx metformin 1,000 mg tablet 1,000 mg PO BID #180 tabs 09/12/24 01/28/25 Rx empagliflozin 10 mg tablet 10 mg PO QAM 12/31/24 01/28/25 History (Jardiance) insulin glargine 100 unit/mL (3 12 unit subcut HS 12/31/24 01/28/25 History mL) subcutaneous pen (Lantus Solostar U-100 Insulin) 3 In 1 Eye Drop Post Cataracts 1 drp ophthalmic (eye) DIRECTED 01/28/25 01/28/25 History Past Med/Surg History Problem List (Updated 01/29/25 @ 05:51 by Cresencio Frost MD) Acute kidney injury Status post fall CLL (chronic lymphocytic leukemia) (Acute) Screening for prostate cancer Atrial fibrillation Ventricular bigeminy Atrial fibrillation with RVR Leukocytosis (Acute) Vitamin D deficiency (Acute) History of SCC (squamous cell carcinoma) of skin (Acute) Hyperlipidemia (Acute) HTN (hypertension) (Acute) Obesity (Acute) Osteoarthritis of knee (Acute) Seborrheic keratosis (Acute) Type 2 diabetes mellitus without complication (Acute) Medical History (Updated 01/29/25 @ 05:51 by Cresencio Frost MD) HTN (hypertension) HLD (hyperlipidemia) Hx of squamous cell carcinoma "dr assumed it was an SCC, pt knocked it off arm" CLL (chronic lymphocytic leukemia) Atrial fibrillation currently on eliquis; f/u PCP only Bacteremia resolved Melanoma dx 1989, sx and chemo Diabetes IDDM Surgical History Hx of left cataract extraction (01/07/25) Hx of colonoscopy History of bowel resection 1989, 04/20 to melanoma internally Status post Mohs surgery incorrect per pt. and dtr. Family History Father Myocardial infarction Acute leukemia Sister Acute leukemia Breast cancer Denies family history of Ovarian cancer Prostate cancer Lung cancer Colorectal cancer Stroke Social History Smoking Status: Never smoker Second Hand Exposure: No; Do You Dip or Chew Tobacco: No; Tobacco Cessation Education Requested by Patient: No Hx Alcohol Use: No Hx Substance Use: No Preferred Language: Kittitian Communication Ability: Effective Visual Impairment: No Limitations Hearing Ability: Normal Satellite Communications Engineer Required: No Beliefs That Will Affect Care: None marital status: Current Living Situation: Alone Current Living Situation Comment: lives at home alone, daughter lives close current occupational status: retired Other Information That Helps Us Care for You: No Feels Safe at Home: Yes Safety Concerns: Feels Safe At This Time Childhood Exposure to Second-Hand Smoke: No Physical Activity Frequency: 3-4 Times per Week Seatbelt Use: always Assistive Devices: Denture - Upper, Denture - Lower, Walker and Wheelchair Review of Systems Review of Systems: The patient denies chest pain, palpitations, cough, lower extremity swelling, sore throat, fevers, chills, sweats, nausea, vomiting, diarrhea , constipation, abdominal pain, pelvic pain, blood in urine or stool, dysuria, urinary frequency or urgency, loss of consciousness, rash, abnormal bruising or bleeding, focal weakness, numbness or tingling in arms or legs, back or neck pain, or night sweats. The review of systems is otherwise negative other than for that already noted above, and at least 10 systems have been reviewed. Physical Exam Physical Exam: The patient is awake, alert and oriented 3, well developed and well nourished, normocephalic and atraumatic, lying in bed and in no acute distress. HEENT--PERRL, EOMI, mucous membranes and oropharynx mildly dry. Neck--supple. No JVD. No bruits. Thyroid normal, trachea midline, no adenopathy. Heart--normal S1 and S2. No murmurs, rubs or gallops. Lungs--clear bilaterally, no respiratory distress, no accessory muscle use. Abdomen--normal bowel sounds and soft. Nontender. Nondistended, no hernias or masses, no organomegaly. Extremities--no cyanosis or clubbing. No edema. There are good distal pulses b/l. Wrist with mild swelling bilaterally Dermatologic--normal skin turgor, normal color, no abnormal lymph nodes, no rash. Neurologic--cranial nerves II through XII grossly intact. Rheumatologic--normal range of motion except for bilateral wrist Psychiatric--normal affect. Results & Data Results & Data Vital Signs (Past 12 Hours) Vital Signs Temp Pulse Pulse Resp BP BP Pulse Ox 01/28/25 20:21 117 H 15 96 01/28/25 20:20 90/73 L 01/28/25 20:20 90/73 L 01/28/25 20:20 90/73 L 01/28/25 20:20 90/73 L 01/28/25 20:20 90/73 L 01/28/25 20:18 129 H 14 92 01/28/25 20:15 114 H 17 95 01/28/25 20:15 94/76 L 01/28/25 20:15 94/76 L 01/28/25 20:15 94/76 L 01/28/25 20:15 94/76 L 01/28/25 20:12 117 H 18 95 01/28/25 20:10 91/64 L 01/28/25 20:10 91/64 L 01/28/25 20:10 91/64 L 01/28/25 20:10 91/64 L 01/28/25 20:10 91/64 L 01/28/25 20:09 117 H 16 96 01/28/25 20:05 91/71 L 01/28/25 20:05 91/71 L 01/28/25 20:05 91/71 L 01/28/25 20:05 91/71 L 01/28/25 20:05 91/71 L 01/28/25 20:03 16 94 01/28/25 20:00 123 H 18 96 01/28/25 20:00 97/71 L 01/28/25 20:00 97/71 L 01/28/25 20:00 97/71 L 01/28/25 20:00 97/71 L 01/28/25 20:00 97/71 L 01/28/25 19:55 90/72 L 01/28/25 19:55 90/72 L 01/28/25 19:55 90/72 L 01/28/25 19:55 90/72 L 01/28/25 19:54 120 H 18 95 01/28/25 19:51 113 H 15 96 01/28/25 19:50 102/79 01/28/25 19:50 102/79 01/28/25 19:50 102/79 01/28/25 19:50 102/79 01/28/25 19:48 128 H 18 96 01/28/25 19:45 118/74 01/28/25 19:45 118/74 01/28/25 19:45 118/74 01/28/25 19:45 118/74 01/28/25 19:45 118/74 01/28/25 19:45 114 H 19 96 01/28/25 19:42 129 H 16 95 01/28/25 19:40 111/75 01/28/25 19:40 111/75 01/28/25 19:40 111/75 01/28/25 19:40 111/75 01/28/25 19:39 126 H 22 96 01/28/25 19:35 93/69 L 01/28/25 19:35 93/69 L 01/28/25 19:35 93/69 L 01/28/25 19:35 93/69 L 01/28/25 19:35 93/69 L 01/28/25 19:33 120 H 19 94 01/28/25 19:30 89/65 L 01/28/25 19:30 89/65 L 01/28/25 19:30 89/65 L 01/28/25 19:30 89/65 L 01/28/25 19:30 89/65 L 01/28/25 19:30 121 H 14 94 01/28/25 19:25 98/75 L 01/28/25 19:25 98/75 L 01/28/25 19:25 98/75 L 01/28/25 19:25 98/75 L 01/28/25 19:24 110 H 16 96 01/28/25 19:21 118 H 14 94 01/28/25 19:20 88/66 L 01/28/25 19:20 88/66 L 01/28/25 19:20 88/66 L 01/28/25 19:00 121 H 16 97 01/28/25 19:00 90/72 L 01/28/25 19:00 116 H 18 90/58 L 96 01/28/25 18:55 110/63 01/28/25 18:55 110/63 01/28/25 18:55 110/63 01/28/25 18:55 110/63 01/28/25 18:55 110/63 01/28/25 18:54 127 H 16 97 01/28/25 18:51 121 H 17 96 01/28/25 18:50 01/28/25 18:50 101/67 01/28/25 18:50 101/67 01/28/25 18:50 101/67 01/28/25 18:50 101/67 01/28/25 18:50 101/67 01/28/25 18:48 117 H 16 96 01/28/25 18:45 87/69 L 01/28/25 18:45 87/69 L 01/28/25 18:45 87/69 L 01/28/25 18:45 87/69 L 01/28/25 18:45 87/69 L 01/28/25 18:45 87/69 L 01/28/25 18:45 87/69 L 01/28/25 18:45 87/69 L 01/28/25 18:45 87/69 L 01/28/25 18:45 129 H 16 97 01/28/25 18:42 121 H 16 96 01/28/25 18:40 89/66 L 01/28/25 18:40 89/66 L 01/28/25 18:40 89/66 L 01/28/25 18:40 89/66 L 01/28/25 18:40 89/66 L 01/28/25 18:39 116 H 13 96 01/28/25 18:35 91/66 L 01/28/25 18:35 91/66 L 01/28/25 18:35 91/66 L 01/28/25 18:35 91/66 L 01/28/25 18:33 90/73 L 01/28/25 18:33 90/73 L 01/28/25 18:33 117 H 19 93 01/28/25 18:30 82/63 L 01/28/25 18:30 82/63 L 01/28/25 18:30 82/63 L 01/28/25 18:30 130 H 13 95 01/28/25 18:26 116 H 01/28/25 18:25 89/70 L 01/28/25 18:25 89/70 L 01/28/25 18:25 89/70 L 01/28/25 18:25 89/70 L 01/28/25 18:25 89/70 L 01/28/25 18:24 107 H 12 96 01/28/25 18:21 116 H 18 96 01/28/25 18:20 90/67 L 01/28/25 18:20 90/67 L 01/28/25 18:20 90/67 L 01/28/25 18:20 90/67 L 01/28/25 18:20 90/67 L 01/28/25 18:18 115 H 17 95 01/28/25 18:16 86/62 L 01/28/25 18:16 86/62 L 01/28/25 18:16 86/62 L 01/28/25 18:16 86/62 L 01/28/25 18:15 85/61 L 01/28/25 18:15 118 H 18 96 01/28/25 18:15 115 H 14 85/61 L 92 01/28/25 18:12 132 H 17 96 01/28/25 18:10 90/66 L 01/28/25 18:10 90/66 L 01/28/25 18:10 90/66 L 01/28/25 18:10 90/66 L 01/28/25 18:10 90/66 L 01/28/25 18:09 112 H 15 94 01/28/25 17:34 120 H 14 114/73 95 01/28/25 17:31 147 H 114/73 01/28/25 16:52 36.6 C 88 16 85/57 L 97 O2 Del Method 01/28/25 20:21 01/28/25 20:20 01/28/25 20:20 01/28/25 20:20 01/28/25 20:20 01/28/25 20:20 01/28/25 20:18 01/28/25 20:15 01/28/25 20:15 01/28/25 20:15 01/28/25 20:15 01/28/25 20:15 01/28/25 20:12 01/28/25 20:10 01/28/25 20:10 01/28/25 20:10 01/28/25 20:10 01/28/25 20:10 01/28/25 20:09 01/28/25 20:05 01/28/25 20:05 01/28/25 20:05 01/28/25 20:05 01/28/25 20:05 01/28/25 20:03 01/28/25 20:00 01/28/25 20:00 01/28/25 20:00 01/28/25 20:00 01/28/25 20:00 01/28/25 20:00 01/28/25 19:55 01/28/25 19:55 01/28/25 19:55 01/28/25 19:55 01/28/25 19:54 01/28/25 19:51 01/28/25 19:50 01/28/25 19:50 01/28/25 19:50 01/28/25 19:50 01/28/25 19:48 01/28/25 19:45 01/28/25 19:45 01/28/25 19:45 01/28/25 19:45 01/28/25 19:45 01/28/25 19:45 01/28/25 19:42 01/28/25 19:40 01/28/25 19:40 01/28/25 19:40 01/28/25 19:40 01/28/25 19:39 01/28/25 19:35 01/28/25 19:35 01/28/25 19:35 01/28/25 19:35 01/28/25 19:35 01/28/25 19:33 01/28/25 19:30 01/28/25 19:30 01/28/25 19:30 01/28/25 19:30 01/28/25 19:30 01/28/25 19:30 01/28/25 19:25 01/28/25 19:25 01/28/25 19:25 01/28/25 19:25 01/28/25 19:24 01/28/25 19:21 01/28/25 19:20 01/28/25 19:20 01/28/25 19:20 01/28/25 19:00 01/28/25 19:00 01/28/25 19:00 Room Air 01/28/25 18:55 01/28/25 18:55 01/28/25 18:55 01/28/25 18:55 01/28/25 18:55 01/28/25 18:54 01/28/25 18:51 01/28/25 18:50 Room Air 01/28/25 18:50 01/28/25 18:50 01/28/25 18:50 01/28/25 18:50 01/28/25 18:50 01/28/25 18:48 01/28/25 18:45 01/28/25 18:45 01/28/25 18:45 01/28/25 18:45 01/28/25 18:45 01/28/25 18:45 01/28/25 18:45 01/28/25 18:45 01/28/25 18:45 01/28/25 18:45 01/28/25 18:42 01/28/25 18:40 01/28/25 18:40 01/28/25 18:40 01/28/25 18:40 01/28/25 18:40 01/28/25 18:39 01/28/25 18:35 01/28/25 18:35 01/28/25 18:35 01/28/25 18:35 01/28/25 18:33 01/28/25 18:33 01/28/25 18:33 01/28/25 18:30 01/28/25 18:30 01/28/25 18:30 01/28/25 18:30 01/28/25 18:26 01/28/25 18:25 01/28/25 18:25 01/28/25 18:25 01/28/25 18:25 01/28/25 18:25 01/28/25 18:24 01/28/25 18:21 01/28/25 18:20 01/28/25 18:20 01/28/25 18:20 01/28/25 18:20 01/28/25 18:20 01/28/25 18:18 01/28/25 18:16 01/28/25 18:16 01/28/25 18:16 01/28/25 18:16 01/28/25 18:15 01/28/25 18:15 01/28/25 18:15 Room Air 01/28/25 18:12 01/28/25 18:10 01/28/25 18:10 01/28/25 18:10 01/28/25 18:10 01/28/25 18:10 01/28/25 18:09 01/28/25 17:34 Room Air 01/28/25 17:31 01/28/25 16:52 Room Air Laboratory Results Laboratory Results WBC 50.89 K/ul (4.8-10.8) H* 01/28/25 17:02 RBC 4.14 M/uL (4.70-6.10) L 01/28/25 17:02 Hgb 12.9 g/dL (14.0-18.0) L 01/28/25 17:02 POC Hgb 13.9 g/dl (14.0-18.0) L 01/28/25 17:12 Hct 39.2 % (42.0-52.0) L 01/28/25 17:02 POC Hct 41 % (42-52) L 01/28/25 17:12 MCV 94.7 fL (80.0-100.0) 01/28/25 17:02 MCH 31.2 pg (25.0-34.0) 01/28/25 17:02 MCHC 32.9 g/dL (32.0-36.0) 01/28/25 17:02 RDW Std Deviation 65.3 fL (36.4-46.3) H 01/28/25 17:02 RDW Coeff of Jackie 19.3 % (11.5-14.5) H 01/28/25 17:02 Plt Count 192 K/uL (130-400) 01/28/25 17:02 MPV 11.2 fL (9.4-12.4) 01/28/25 17:02 Neutrophils % (Manual) 27 % 01/28/25 17:02 Lymphocytes % (Manual) 71 % 01/28/25 17:02 Monocytes % (Manual) 2 % 01/28/25 17:02 Eosinophils % (Manual) 0 % 01/28/25 17:02 Neutrophils # (Manual) 13.74 K/uL (1.40-6.50) H 01/28/25 17:02 Total Absolute Neuts 13.74 K/uL (1.4-6.5) H 01/28/25 17:02 Lymphocytes # (Manual) 36.13 K/uL (1.2-3.4) H 01/28/25 17:02 Total Abs Lymphocytes 36.13 K/uL (1.2-3.4) H 01/28/25 17:02 Monocytes # (Manual) 1.02 K/uL (0.11-0.59) H 01/28/25 17:02 Eosinophils # (Manual) 0.00 K/uL (0-0.50) 01/28/25 17:02 Smudge Cells Present 01/28/25 17:02 POC Sodium 136 mmol/L (135-144) 01/28/25 17:12 Sodium 134 mmol/L (136-145) L 01/28/25 17:02 POC Potassium 4.4 mmol/L (3.3-5.0) 01/28/25 17:12 Potassium 4.8 mmol/L (3.5-5.1) 01/28/25 17:02 POC Chloride 102 mmol/L (101-112) 01/28/25 17:12 Chloride 102 mmol/L (98-107) 01/28/25 17:02 Carbon Dioxide 21 mmol/L (21-32) 01/28/25 17:02 POC Total CO2 20 mmol/L (24-31) L 01/28/25 17:12 Anion Gap 11 (3-11) 01/28/25 17:02 POC Anion Gap 18.0 mmol/L (16-25) 01/28/25 17:12 POC BUN 52 mg/dl (7-18) H 01/28/25 17:12 BUN 57 mg/dl (6-23) H 01/28/25 17:02 Creatinine 1.41 mg/dl (0.6-1.4) H 01/28/25 17:02 POC Creatinine 1.6 mg/dl (0.6-1.3) H 01/28/25 17:12 Est Cr Clr Drug Dosing 46.0 ml/min 01/28/25 17:02 eGFR 51.65 01/28/25 17:02 BUN/Creatinine Ratio 40.4 (10-20) H 01/28/25 17:02 Glucose 254 mg/dl (70-99(Fasting)) H 01/28/25 17:02 POC Glucose 112 mg/dl (70-99) H 01/28/25 22:26 POC Glucose (other) 245 mg/dl (70-99) H 01/28/25 17:12 Calcium 9.3 mg/dl (8.6-10.3) 01/28/25 17:02 POC Ioniz Calcium Jayne 1.18 mmol/l (1.12-1.32) 01/28/25 17:12 Magnesium 1.4 mg/dl (1.7-2.4) L 01/28/25 17:02 Total Bilirubin 1.2 mg/dl (0.2-1.0) H 01/28/25 17:02 AST 28 U/L (13-39) 01/28/25 17:02 ALT 20 U/L (7-52) 01/28/25 17:02 Alkaline Phosphatase 67 U/L (34-104) 01/28/25 17:02 Troponin I High Sens 16.0 pg/ml (0-20) 01/28/25 17:02 Total Protein 6.4 gm/dl (6.0-8.3) 01/28/25 17:02 Albumin 4.0 gm/dl (3.4-5.0) 01/28/25 17:02 Globulin 2.4 gm/dl (2.5-4.0) L 01/28/25 17:02 Albumin/Globulin Ratio 1.7 (0.9-2) 01/28/25 17:02 Impressions Forearm X-Ray 01/28/25 17:11 History: Pain Comparison: None Findings/impression: There is no acute fracture or dislocation. No acute bony abnormality of the right forearm. Moderate right radiocarpal wrist degenerative changes, associated with chondrocalcinosis. There is mild soft tissue swelling noted about the right wrist. Mild left wrist joint degenerative changes associated with chondrocalcinosis. Severe left first CMC joint and moderate triscaphe joint degenerative change. Mild right first CMC joint degenerative change consistent with osteoarthritis. Mild arterial vascular calcifications. Osteopenia. Electronically signed by Parmjit May 01-28-2025 6:28 PM Wrist X-Ray 01/28/25 17:11 History: Pain Comparison: None Findings/impression: There is no acute fracture or dislocation. No acute bony abnormality of the right forearm. Moderate right radiocarpal wrist degenerative changes, associated with chondrocalcinosis. There is mild soft tissue swelling noted about the right wrist. Mild left wrist joint degenerative changes associated with chondrocalcinosis. Severe left first CMC joint and moderate triscaphe joint degenerative change. Mild right first CMC joint degenerative change consistent with osteoarthritis. Mild arterial vascular calcifications. Osteopenia. Electronically signed by Parmjit May 01-28-2025 6:28 PM Code Status & VTE Plan Code Status DNR/DNI VTE Prophylaxis Plan VTE Prophylaxis will be ordered: Yes PG Care Time/CCT Total # of Minutes Spent Total Time Spent with Patient: Total time spent is greater than 50% in coordination of care (as documented) at patient's floor/unit and/or counseling patient: Coding Level of Care Code 05787 INT INP/OBS CARE 3/75MIN Diagnoses Status post fall Z91.81 Atrial fibrillation with RVR I48.91 Acute kidney injury N17.9 CLL (chronic lymphocytic leukemia) C91.10
[2025-01-28] MEDS: PANTOprazole 40 MG/10 ML SYR IV ONE (21:07)
[2025-01-28] MEDS ORDERED: GLUCOSE 40% GEL 15 GM TUBE PO PRN (22:11)
[2025-01-28] MEDS ORDERED: GLUCOSE 10 TAB/TUBE PO PRN (22:11)
[2025-01-28] MEDS ORDERED: ONDANSETRON INJ 2 MG/ML 2 ML VIAL IV PRN (22:11)
[2025-01-28] MEDS ORDERED: DEXTROSE 50% 50 ML SYRINGE IV PRN (22:11)
[2025-01-28] MEDS ORDERED: CARBOHYDRATES FOR HYPOGLYCEMIA PO PRN (22:11)
[2025-01-28] MEDS ORDERED: GLUCAGON FOR INJ 1 MG VIAL SQ PRN (22:11)
[2025-01-28] MEDS: INSULIN ASPART PER UNIT CHARGE SC SCH (22:48)
[2025-01-28] MEDS: LANTUS PER UNIT CHARGE SC SCH (22:48)
[2025-01-28] MEDS: LACTATED RINGER'S 1,000 ML IV STA (22:48)
[2025-01-28] MEDS: APIXABAN 5 MG TABLET PO SCH (23:36)
[2025-01-28] MEDS: SIMVASTATIN 10 MG TAB PO SCH (23:36)
[2025-01-29] MEDS: LACTATED RINGER'S 500 ML IV ONE (02:32)
[2025-01-29] MEDS: ACETAMINOPHEN 1,000 MG/100 ML VIAL IV PRN (02:46)
[2025-01-29 06:31] LABS: Hematocrit (blood only) 34.5 % (42.0-52.0); Hemoglobin 11.5 g/dL (14.0-18.0); Mean Corpuscular Hemoglobin 31.3 pg (25.0-34.0); Mean Corpuscular Volume 93.8 fL (80.0-100.0); Platelet Count 172 K/uL (130-400); RDW Standard Deviation 64.8 fL (36.4-46.3); Red Blood Count 3.68 M/uL (4.70-6.10); White Blood Count 43.75 K/ul (4.8-10.8)
[2025-01-29 06:42] LABS: Alanine Aminotransferase 13.0 U/L (7-52); Albumin Globulin Ratio 1.7 (0.9-2); Albumin Level 3.4 gm/dl (3.4-5.0); Alkaline Phosphatase 51.0 U/L (34-104); Anion Gap 7.0 (3-11); Bilirubin,Total 1.4 mg/dl (0.2-1.0); Blood Urea Nitrogen 39.0 mg/dl (6-23); Calcium 8.8 mg/dl (8.6-10.3); Carbon Dioxide 22.0 mmol/L (21-32); Chloride 111.0 mmol/L (98-107); Creatinine Clr Calc Pharmacy 69.8 ml/min; Globulin 2.0 gm/dl (2.5-4.0); Glucose 94.0 mg/dl (70-99(Fasting)); Magnesium 1.7 mg/dl (1.7-2.4); Potassium 4.0 mmol/L (3.5-5.1); Sodium 140.0 mmol/L (136-145); Total Protein 5.4 gm/dl (6.0-8.3)
[2025-01-29 07:42] LABS: Anisocytosis Present; Immature Granulocytes # (auto) 0.13 K/uL (0.01-0.20); Immature Granulocytes % (auto) 0.3 %; Ovalocytes 1+; Polychromasia 1+; Smudge Cells Present
[2025-01-29] MEDS: ASCORBIC ACID 500 MG TAB PO SCH (08:17)
[2025-01-29] MEDS: CHOLECALCIFEROL 25 MCG (1000 UNITS) TAB PO SCH (08:17)
[2025-01-29] MEDS: CYANOCOBALAMIN (B-12) 500 MCG TABLET PO SCH (08:17)
[2025-01-29] MEDS: MULTIVITAMIN TAB PO SCH (08:17)
[2025-01-29] MEDS: PANTOprazole 40 MG/10 ML SYR IV SCH (08:19)
[2025-01-29] MEDS ORDERED: INFLUENZA VACC TS2025-26(65y+)/PF (IIV3) 0.5mL Syr IM ONE (09:00)
--- NOTE | 2025-01-29 09:02 | XRay Report ---
XR chest 1V portable HISTORY: 74 years-old Male atrial fib/RVR acute shortest breath COMPARISON: 10/07/2024 TECHNIQUE: AP view of the chest FINDINGS: Cardiac silhouette is mildly enlarged. Mild right hemidiaphragmatic elevation redemonstrated. No pneu mothorax or overt pulmonary edema. Blunting of the costophrenic angles with right basilar predominant opacities. Bones appear grossly intact. IMPRESSION: 1. Right basilar predominant opacities suggestive of atelectasis versus pneumonia. 2. Right hemidiaphragmatic elevation redemonstrated. 3. Mild cardiomegaly without overt pulmonary edema. ACT 112: Negative or not required by law. The above report was generated using voice recognition software. It may contain grammatical, syntax o r spelling errors. Electronically signed by: Gutierrez Melendez M.D. 01/29/2025 9:01 AM
[2025-01-29 09:14] LABS: Hemoglobin A1C 6.1 % (4.5-5.6)
[2025-01-29] MEDS: METOPROLOL TARTRATE 25 MG TAB PO SCH (10:59)
--- NOTE | 2025-01-29 13:29 | Hospitalist Progress Note ---
Date of Service January 29, 2025 Assessment & Plan (1) Status post fall: Plan: Mechanical. No syncope. Fortunately x-rays are negative for fracture. He has suffered bilateral sprained wrist and is experiencing some pain. This will be treated conservatively (2) Atrial fibrillation with RVR: Plan: Chronic atrial fibrillation. Metoprolol has been resumed. Telemetry (3) Acute kidney injury: Plan: Mild on admission. Now normalized with IV fluids. IV fluids will be discontinued. Monitor urine output. Serial labs (4) CLL (chronic lymphocytic leukemia): Plan: White blood cell count is chronically elevated. Will follow (5) Type 2 diabetes mellitus without complication: Plan: Bedtime insulin discontinued to prevent hypoglycemia. Sliding scale coverage for now. ADA diet Plan OT and PT assessments have been requested. He appears to be agreeable to short- term SNF placement if it is necessary Admission and Anticipated Discharge Date Admission Date: January 28, 2025 Subjective Alert and oriented. He is complaining of bilateral wrist pain however from his fall. Fortunately, x-rays are negative for any fracture. Metoprolol has been restarted to prevent atrial fibrillation rate to get out of control. Blood pressure is on the low side of normal and lisinopril remains on hold. Nighttime insulin has been stopped to prevent hypoglycemia. Chest x-ray reveals right lower lobe infiltrate that could be from contusion. No symptoms of pneumonia. Creatinine was slightly elevated on admission and has now normalized to 0.9. IV fluids will be discontinued. Review of Systems 2 Review of Systems: Constitutionalno fever or chills ENTno blurred vision, no double vision, no epistaxis, no sore throat Respiratoryno cough, no wheezing, no shortness of breath Cardiacno palpitations, no chest pain, no syncope Moni nausea, vomiting, diarrhea, melena, hematochezia GUno urinary retention, no urinary incontinence, no dysuria, no hematuria Musculoskeletalbilateral wrist discomfort from falling. No muscle tenderness Skinno bruising, no rashes, no pruritus Neurono isolated weakness, no paresthesia, no weakness Psychno depression, no anxiety Physical Exam 2 Physical Exam: General-alert and oriented x3, no fever, no chills HEENT-head atraumatic and normocephalic, pupils equal and reactive to light, extraocular muscles intact Neck-no lymphadenopathy or thyromegaly, trachea midline Chest-clear to auscultation. No rales, wheezing or rhonchi Cardiac-irregular rhythm. Elevated rate but still less than 100. Normal S1 and S2 Abdomen-normal bowel sounds, no hepatosplenomegaly Extremities-no cyanosis, clubbing, or edema. No deformities of either wrist. Limited range of motion however due to discomfort. Neuro-cranial nerves II through XII intact, motor and sensory function within normal limits, strength symmetrical, no focal deficits Psych-normal affect, normal mood Results & Data Results & Data Vital Signs (Past 12 Hours) Vital Signs Temp Pulse Resp BP Pulse Ox O2 Del Method 01/29/25 12:12 36.4 C L 102 H 20 100/68 96 Room Air 01/29/25 08:14 76 95/65 L 01/29/25 08:00 Room Air 01/29/25 07:50 36.4 C L 116 H 19 87/63 L 96 Room Air 01/29/25 02:56 36.7 C 105 H 18 106/71 95 Room Air Laboratory Results 01/29/25 05:43 01/29/25 05:43 PG Care Time/CCT Total # of Minutes Spent Total Time Spent with Patient: Total time spent is greater than 50% in coordination of care (as documented) at patient's floor/unit and/or counseling patient: Coding Level of Care Code 45922 SUB INP/OBS CARE 3/50MIN Diagnoses Status post fall Z91.81 Atrial fibrillation with RVR I48.91 Acute kidney injury N17.9 CLL (chronic lymphocytic leukemia) C91.10 Type 2 diabetes mellitus without complication E11.9
[2025-01-30 02:18] LABS: Anion Gap 7.0 (3-11); Blood Urea Nitrogen 27.0 mg/dl (6-23); Calcium 8.7 mg/dl (8.6-10.3); Carbon Dioxide 23.0 mmol/L (21-32); Chloride 108.0 mmol/L (98-107); Creatinine Clr Calc Pharmacy 91.4 ml/min; Glucose 115.0 mg/dl (70-99(Fasting)); Magnesium 1.6 mg/dl (1.7-2.4); Potassium 4.2 mmol/L (3.5-5.1); Sodium 138.0 mmol/L (136-145)
[2025-01-30] MEDS: MAGNESIUM SULFATE / D5W 1 GM/100 ML BAG IV SCH (02:34)
[2025-01-30 07:28] LABS: Hematocrit (blood only) 37.1 % (42.0-52.0); Hemoglobin 12.0 g/dL (14.0-18.0); Mean Corpuscular Hemoglobin 30.7 pg (25.0-34.0); Mean Corpuscular Volume 94.9 fL (80.0-100.0); Platelet Count 185 K/uL (130-400); RDW Standard Deviation 65.5 fL (36.4-46.3); Red Blood Count 3.91 M/uL (4.70-6.10); White Blood Count 50.85 K/ul (4.8-10.8)
[2025-01-30 07:49] LABS: Alanine Aminotransferase 11.0 U/L (7-52); Albumin Globulin Ratio 1.8 (0.9-2); Albumin Level 3.5 gm/dl (3.4-5.0); Alkaline Phosphatase 52.0 U/L (34-104); Anion Gap 7.0 (3-11); Bilirubin,Total 1.2 mg/dl (0.2-1.0); Blood Urea Nitrogen 24.0 mg/dl (6-23); Calcium 9.1 mg/dl (8.6-10.3); Carbon Dioxide 23.0 mmol/L (21-32); Chloride 108.0 mmol/L (98-107); Creatinine Clr Calc Pharmacy 91.4 ml/min; Globulin 2.0 gm/dl (2.5-4.0); Glucose 136.0 mg/dl (70-99(Fasting)); Magnesium 2.0 mg/dl (1.7-2.4); Potassium 4.4 mmol/L (3.5-5.1); Sodium 138.0 mmol/L (136-145); Total Protein 5.5 gm/dl (6.0-8.3)
[2025-01-30 08:22] LABS: Immature Granulocytes # (auto) 0.22 K/uL (0.01-0.20); Immature Granulocytes % (auto) 0.4 %; Polychromasia 1+; Smudge Cells Present
--- NOTE | 2025-01-30 09:34 | Electrocardiogram Report ---
Test Reason : Blood Pressure : */* mmHG Vent. Rate : 128 BPM Atrial Rate : * BPM P-R Int : * ms QRS Dur : 74 ms QT Int : 254 ms P-R-T Axes : * 8 41 degrees QTcB Int : 370 ms Sinus bradycardia with runs of PAT with pvc or aberrant conduction Low voltage QRS Cannot rule out Inferior infarct , age undetermined Possible Anterolateral infarct When compared with ECG of 08-Sep-2024 19:15, No significant change Confirmed by Juan Garibay ([id number] on 01/30/2025 9:33:49 AM Referred By: REFERRED SELF Confirmed By: Juan Garibay
--- NOTE | 2025-01-30 13:25 | Hospitalist Progress Note ---
Date of Service January 30, 2025 Assessment & Plan (1) Status post fall: Plan: Mechanical. No syncope. Fortunately x-rays are negative for fracture. He has suffered bilateral sprained wrist and is experiencing some discomfort and limited range of motion. Will give several doses of parenteral steroids and observe effect. (2) Atrial fibrillation with RVR: Plan: Chronic atrial fibrillation. Controlled rate. Metoprolol has been resumed. Telemetry (3) Acute kidney injury: Plan: Mild on admission. Now normalized with IV fluids. IV fluids have been discontinued. Monitor urine output. Serial labs (4) CLL (chronic lymphocytic leukemia): Plan: White blood cell count is chronically elevated. Will follow (5) Type 2 diabetes mellitus without complication: Plan: Bedtime insulin has been discontinued to prevent hypoglycemia. Sliding scale coverage for now. ADA diet. I expect addition of Solu-Medrol to elevate glucose transiently Plan OT and PT assessments have been requested. He appears to be agreeable to short- term SNF placement at discharge Admission and Anticipated Discharge Date Admission Date: January 28, 2025 Subjective Alert and oriented. No distress. He continues to have bilateral wrist discomfort from falling. I suspect he has suffered bilateral wrist sprains. Parenteral Solu-Medrol ordered for anti-inflammatory effect which should help. Glucose 136 this morning, January 30. Solu-Medrol may make the glucose rise transiently. Metformin and Jardiance remain on hold. Creatinine has improved further to 0.7. Blood pressure and heart rate are acceptable. Lisinopril remains on hold. Review of Systems 2 Review of Systems: Constitutionalno fever or chills ENTno blurred vision, no double vision, no epistaxis, no sore throat Respiratoryno cough, no wheezing, no shortness of breath Cardiacno palpitations, no chest pain, no syncope Moni nausea, vomiting, diarrhea, melena, hematochezia GUno urinary retention, no urinary incontinence, no dysuria, no hematuria Musculoskeletalbilateral wrist discomfort from falling. No muscle tenderness Skinno bruising, no rashes, no pruritus Neurono isolated weakness, no paresthesia, no weakness Psychno depression, no anxiety Physical Exam 2 Physical Exam: General-alert and oriented x3, no fever, no chills HEENT-head atraumatic and normocephalic, pupils equal and reactive to light, extraocular muscles intact Neck-no lymphadenopathy or thyromegaly, trachea midline Chest-clear to auscultation. No rales, wheezing or rhonchi Cardiac-irregular rhythm. Elevated rate but still less than 100. Normal S1 and S2 Abdomen-normal bowel sounds, no hepatosplenomegaly Extremities-no cyanosis, clubbing, or edema. No deformities of either wrist. Limited range of motion however due to discomfort. Neuro-cranial nerves II through XII intact, motor and sensory function within normal limits, strength symmetrical, no focal deficits Psych-normal affect, normal mood Results & Data Results & Data Vital Signs (Past 12 Hours) Vital Signs Temp Pulse Pulse Resp BP Pulse Ox O2 Del Method 01/30/25 11:33 36.6 C 46 L 20 102/61 96 Room Air 01/30/25 07:24 36.7 C 72 20 102/58 L 96 Room Air 01/30/25 07:16 82 01/30/25 03:10 36.6 C 60 18 102/61 95 Room Air Laboratory Results 01/30/25 06:58 01/30/25 06:58 PG Care Time/CCT Total # of Minutes Spent Total Time Spent with Patient: Total time spent is greater than 50% in coordination of care (as documented) at patient's floor/unit and/or counseling patient: Coding Level of Care Code 98406 SUB INP/OBS CARE 3/50MIN Diagnoses Status post fall Z91.81 Atrial fibrillation with RVR I48.91 Acute kidney injury N17.9 CLL (chronic lymphocytic leukemia) C91.10 Type 2 diabetes mellitus without complication E11.9
[2025-01-30] MEDS ORDERED: methylPREDNISolone 10 mg/mL (For Ped Dose < 7mg) IV SCH (14:00)
[2025-01-31 06:43] LABS: Hematocrit (blood only) 35.4 % (42.0-52.0); Hemoglobin 11.8 g/dL (14.0-18.0); Mean Corpuscular Hemoglobin 31.5 pg (25.0-34.0); Mean Corpuscular Volume 94.4 fL (80.0-100.0); Platelet Count 208 K/uL (130-400); RDW Standard Deviation 64.0 fL (36.4-46.3); Red Blood Count 3.75 M/uL (4.70-6.10); White Blood Count 49.86 K/ul (4.8-10.8)
[2025-01-31 07:14] LABS: Alanine Aminotransferase 13.0 U/L (7-52); Albumin Globulin Ratio 1.7 (0.9-2); Albumin Level 3.5 gm/dl (3.4-5.0); Alkaline Phosphatase 60.0 U/L (34-104); Anion Gap 8.0 (3-11); Bilirubin,Total 0.6 mg/dl (0.2-1.0); Blood Urea Nitrogen 26.0 mg/dl (6-23); Calcium 9.1 mg/dl (8.6-10.3); Carbon Dioxide 24.0 mmol/L (21-32); Chloride 106.0 mmol/L (98-107); Creatinine Clr Calc Pharmacy 78.2 ml/min; Globulin 2.1 gm/dl (2.5-4.0); Glucose 237.0 mg/dl (70-99(Fasting)); Magnesium 1.8 mg/dl (1.7-2.4); Potassium 4.9 mmol/L (3.5-5.1); Sodium 138.0 mmol/L (136-145); Total Protein 5.6 gm/dl (6.0-8.3)
[2025-01-31 07:27] LABS: Immature Granulocytes # (auto) 0.26 K/uL (0.01-0.20); Immature Granulocytes % (auto) 0.5 %; Polychromasia 1+; Smudge Cells Present
[2025-01-31] MEDS: EMPAGLIFLOZIN 10 MG TAB PO SCH (10:34)
[2025-01-31] MEDS: METOPROLOL TARTRATE 1 MG/ML VIAL IV STA ×2 (11:10→13:39)
--- NOTE | 2025-01-31 11:16 | Hospitalist Progress Note ---
Date of Service January 31, 2025 Assessment & Plan (1) Status post fall: Plan: Mechanical. No syncope. Fortunately x-rays are negative for fracture. He has suffered bilateral sprained wrist and is experiencing some discomfort and limited range of motion. Addition of parenteral steroids has helped with the pain and swelling. He was switched to oral prednisone today, December 31. This will be discontinued probably in a day or 2. (2) Atrial fibrillation with RVR: Plan: Chronic atrial fibrillation. Rapid ventricular rate with ambulation today, January 31. He received a dose of IV metoprolol and also his oral dose has been uptitrated. Will follow. Continue telemetry. (3) Acute kidney injury: Plan: Mild on admission. Now normalized with IV fluids. IV fluids have been discontinued. Monitor urine output. Serial labs (4) CLL (chronic lymphocytic leukemia): Plan: White blood cell count is chronically elevated. Will follow (5) Type 2 diabetes mellitus without complication: Plan: Bedtime insulin has been discontinued to prevent hypoglycemia. Glucose has risen as expected with steroid therapy. Metformin and Jardiance restarted today, January 31. ADA diet. Continue sliding scale coverage. Plan Physical therapy recommends rehab placement. Occupational Therapy assessment is pending. He is agreeable to short-term SNF placement at discharge . Placement is pending Admission and Anticipated Discharge Date Admission Date: January 28, 2025 Subjective Both wrists feel better with parenteral steroid therapy which has been switched to oral prednisone today, January 31. Atrial fibrillation ventricular rate was fast with ambulation today. He received a dose of IV metoprolol and oral dosing uptitrated. Creatinine is now stable and in normal range. Glucose was 237 this morning from steroid therapy. Metformin and Jardiance have been restarted. Will follow Review of Systems 2 Review of Systems: Constitutionalno fever or chills ENTno blurred vision, no double vision, no epistaxis, no sore throat Respiratoryno cough, no wheezing, no shortness of breath Cardiacno palpitations, no chest pain, no syncope Moni nausea, vomiting, diarrhea, melena, hematochezia GUno urinary retention, no urinary incontinence, no dysuria, no hematuria Musculoskeletalbilateral wrist discomfort from falling. No muscle tenderness Skinno bruising, no rashes, no pruritus Neurono isolated weakness, no paresthesia, no weakness Psychno depression, no anxiety Physical Exam 2 Physical Exam: General-alert and oriented x3, no fever, no chills HEENT-head atraumatic and normocephalic, pupils equal and reactive to light, extraocular muscles intact Neck-no lymphadenopathy or thyromegaly, trachea midline Chest-clear to auscultation. No rales, wheezing or rhonchi Cardiac-irregular rhythm consistent with atrial fibrillation. Controlled rate at the time of my rounds this morning. Normal S1 and S2 Abdomen-normal bowel sounds, no hepatosplenomegaly Extremities-no cyanosis, clubbing, or edema. No deformities of either wrist. Limited range of motion however due to discomfort but improved. Neuro-cranial nerves II through XII intact, motor and sensory function within normal limits, strength symmetrical, no focal deficits Psych-normal affect, normal mood Results & Data Results & Data Vital Signs (Past 12 Hours) Vital Signs Temp Pulse Pulse Resp BP Pulse Ox O2 Del Method 01/31/25 11:06 130 H 172/98 H 01/31/25 07:53 63 01/31/25 07:27 36.7 C 58 L 18 128/71 96 Room Air 01/31/25 03:08 36.6 C 61 19 132/76 95 Room Air Laboratory Results 01/31/25 05:31 01/31/25 05:31 PG Care Time/CCT Total # of Minutes Spent Total Time Spent with Patient: Total time spent is greater than 50% in coordination of care (as documented) at patient's floor/unit and/or counseling patient: Coding Level of Care Code 43141 SUB INP/OBS CARE 3/50MIN Diagnoses Status post fall Z91.81 Atrial fibrillation with RVR I48.91 Acute kidney injury N17.9 CLL (chronic lymphocytic leukemia) C91.10 Type 2 diabetes mellitus without complication E11.9
[2025-01-31] MEDS: ACETAMINOPHEN 500 MG TAB PO PRN (20:52)
[2025-01-31] MEDS: METOPROLOL TARTRATE 50 MG TAB PO SCH (20:53)
[2025-02-01 07:34] LABS: Hematocrit (blood only) 36.6 % (42.0-52.0); Hemoglobin 12.1 g/dL (14.0-18.0); Mean Corpuscular Hemoglobin 31.3 pg (25.0-34.0); Mean Corpuscular Volume 94.6 fL (80.0-100.0); Platelet Count 269 K/uL (130-400); RDW Standard Deviation 64.1 fL (36.4-46.3); Red Blood Count 3.87 M/uL (4.70-6.10); White Blood Count 70.84 K/ul (4.8-10.8)
[2025-02-01 07:57] LABS: Anion Gap 8.0 (3-11); Blood Urea Nitrogen 36.0 mg/dl (6-23); Calcium 9.1 mg/dl (8.6-10.3); Carbon Dioxide 25.0 mmol/L (21-32); Chloride 107.0 mmol/L (98-107); Creatinine Clr Calc Pharmacy 80.1 ml/min; Glucose 181.0 mg/dl (70-99(Fasting)); Potassium 4.6 mmol/L (3.5-5.1); Sodium 140.0 mmol/L (136-145)
[2025-02-01 08:21] LABS: Immature Granulocytes # (auto) 0.50 K/uL (0.01-0.20); Immature Granulocytes % (auto) 0.7 %; Polychromasia 1+; Smudge Cells Present
[2025-02-01] MEDS: DIGOXIN 500 MCG in SYRINGE 8 ML IV STA (10:26)
--- NOTE | 2025-02-01 10:40 | Hospitalist Progress Note ---
Date of Service February 01, 2025 Assessment & Plan (1) Status post fall: Plan: Mechanical. No syncope. Fortunately x-rays are negative for fracture. He has suffered bilateral sprained wrist and is experiencing some discomfort and limited range of motion. Addition of parenteral steroids has helped with the pain and swelling. He was switched to oral prednisone on December 31 and dosage down titrated today, January 01. This will be discontinued probably in a day or 2. (2) Atrial fibrillation with RVR: Plan: Chronic atrial fibrillation. Rapid ventricular rate persist despite increase in metoprolol dosage. Digitalization started today, February 01. Serial digoxin labs ordered. Continue telemetry. (3) Acute kidney injury: Plan: Mild on admission. Now normalized with IV fluids. IV fluids have been discontinued. Monitor urine output. Serial labs (4) CLL (chronic lymphocytic leukemia): Plan: White blood cell count is chronically elevated. Will follow (5) Type 2 diabetes mellitus without complication: Plan: Bedtime insulin has been discontinued to prevent hypoglycemia. Glucose has risen as expected with steroid therapy. Metformin and Jardiance restarted on January 31 and glucose is now downtrending. Continue ADA diet. Continue sliding scale coverage. Plan Physical therapy recommends rehab placement. Occupational Therapy assessment is pending. He is agreeable to short-term SNF placement at discharge . Placement is pending Admission and Anticipated Discharge Date Admission Date: January 28, 2025 Subjective Alert and oriented. No complaints. Ventricular rate associated with atrial fibrillation remains a little fast despite uptitration of metoprolol. Digitalization has been started. Prednisone tapered down to twice daily dosing. Glucose improved to 181 this morning after parenteral steroids switched to oral prednisone dosing yesterday, January 31. Review of Systems 2 Review of Systems: Constitutionalno fever or chills ENTno blurred vision, no double vision, no epistaxis, no sore throat Respiratoryno cough, no wheezing, no shortness of breath Cardiacno palpitations, no chest pain, no syncope Moni nausea, vomiting, diarrhea, melena, hematochezia GUno urinary retention, no urinary incontinence, no dysuria, no hematuria Musculoskeletalbilateral wrist discomfort from falling. No muscle tenderness Skinno bruising, no rashes, no pruritus Neurono isolated weakness, no paresthesia, no weakness Psychno depression, no anxiety Physical Exam 2 Physical Exam: General-alert and oriented x3, no fever, no chills HEENT-head atraumatic and normocephalic, pupils equal and reactive to light, extraocular muscles intact Neck-no lymphadenopathy or thyromegaly, trachea midline Chest-clear to auscultation. No rales, wheezing or rhonchi Cardiac-irregular rhythm consistent with atrial fibrillation. Ventricular rate is a little fast, greater than 100 but less than 140. Normal S1 and S2 Abdomen-normal bowel sounds, no hepatosplenomegaly Extremities-no cyanosis, clubbing, or edema. No deformities of either wrist. Limited range of motion however due to discomfort but improved. Neuro-cranial nerves II through XII intact, motor and sensory function within normal limits, strength symmetrical, no focal deficits Psych-normal affect, normal mood Results & Data Results & Data Vital Signs (Past 12 Hours) Vital Signs Temp Pulse Pulse Resp BP BP Pulse Ox 02/01/25 07:18 36.5 C 88 18 113/71 96 02/01/25 03:27 36.4 C L 108 H 16 111/78 97 01/31/25 22:56 36.6 C 120 H 19 125/85 96 01/31/25 22:39 115 H O2 Del Method 02/01/25 07:18 Room Air 02/01/25 03:27 Room Air 01/31/25 22:56 Room Air 01/31/25 22:39 Laboratory Results 02/01/25 06:43 02/01/25 06:43 PG Care Time/CCT Total # of Minutes Spent Total Time Spent with Patient: Total time spent is greater than 50% in coordination of care (as documented) at patient's floor/unit and/or counseling patient: Coding Level of Care Code 69473 SUB INP/OBS CARE 3/50MIN Diagnoses Status post fall Z91.81 Atrial fibrillation with RVR I48.91 Acute kidney injury N17.9 CLL (chronic lymphocytic leukemia) C91.10 Type 2 diabetes mellitus without complication E11.9
[2025-02-01] MEDS: DIGOXIN 250 MCG in SYRINGE 9 ML IV ONE (17:34)
--- NOTE | 2025-02-01 21:45 | Electrocardiogram Report ---
Test Reason : Blood Pressure : */* mmHG Vent. Rate : 142 BPM Atrial Rate : 267 BPM P-R Int : * ms QRS Dur : 94 ms QT Int : 292 ms P-R-T Axes : * 30 -12 degrees QTcB Int : 449 ms Atrial fibrillation with rapid ventricular response Low voltage QRS Nonspecific ST and T wave abnormality Abnormal ECG When compared with ECG of 28-Jan-2025 17:05, Atrial fibrillation is now Present Questionable change in QRS duration Borderline criteria for Anterior infarct are no longer Present Borderline criteria for Anterolateral infarct are no longer Present Confirmed by Jh Patterson ([id number] on 02/01/2025 9:45:37 PM Referred By: REFERRED SELF Confirmed By: Jh Patterson
--- NOTE | 2025-02-01 21:49 | Electrocardiogram Report ---
Test Reason : Blood Pressure : */* mmHG Vent. Rate : 125 BPM Atrial Rate : * BPM P-R Int : * ms QRS Dur : 88 ms QT Int : 314 ms P-R-T Axes : * -42 25 degrees QTcB Int : 453 ms Atrial fibrillation with rapid ventricular response Left axis deviation Low voltage QRS Inferior infarct , age undetermined Abnormal ECG When compared with ECG of 31-Jan-2025 10:58, QRS axis Shifted left ST no longer depressed in Anterolateral leads Nonspecific T wave abnormality no longer evident in Lateral leads Confirmed by Jh Patterson ([id number] on 02/01/2025 9:49:09 PM Referred By: REFERRED SELF Confirmed By: Jh Patterson
[2025-02-02 07:13] LABS: Hematocrit (blood only) 41.4 % (42.0-52.0); Hemoglobin 13.6 g/dL (14.0-18.0); Mean Corpuscular Hemoglobin 31.2 pg (25.0-34.0); Mean Corpuscular Volume 95.0 fL (80.0-100.0); Platelet Count 282 K/uL (130-400); RDW Standard Deviation 64.0 fL (36.4-46.3); Red Blood Count 4.36 M/uL (4.70-6.10); White Blood Count 80.80 K/ul (4.8-10.8)
[2025-02-02 07:14] LABS: Immature Granulocytes # (auto) 0.57 K/uL (0.01-0.20); Immature Granulocytes % (auto) 0.7 %; Polychromasia 1+; Smudge Cells Present
[2025-02-02 08:07] LABS: Anion Gap 7.0 (3-11); Blood Urea Nitrogen 36.0 mg/dl (6-23); Calcium 9.4 mg/dl (8.6-10.3); Carbon Dioxide 25.0 mmol/L (21-32); Chloride 105.0 mmol/L (98-107); Creatinine Clr Calc Pharmacy 85.4 ml/min; Glucose 161.0 mg/dl (70-99(Fasting)); Magnesium 1.5 mg/dl (1.7-2.4); Potassium 5.6 mmol/L (3.5-5.1); Sodium 137.0 mmol/L (136-145)
[2025-02-02] MEDS: MAGNESIUM SULFATE / D5W 1 GM/100 ML BAG IV SCH (10:04)
[2025-02-02] MEDS: SODIUM ZIRCONIUM CYCLOSILICATE 10 GM PACKET PO SCH (10:04)
--- NOTE | 2025-02-02 12:37 | Hospitalist Progress Note ---
Date of Service February 02, 2025 Assessment & Plan (1) Status post fall: (2) Atrial fibrillation with RVR: (3) Acute kidney injury: (4) CLL (chronic lymphocytic leukemia): Plan This patient is a 74-year-old male with a history of CLL, paroxysmal atrial fibrillation on Eliquis, HTN, HLD, DM2, OA, vitamin D deficiency, who presents with diarrhea, dehydration, RAFAEL, hypomagnesemia, a fall with bilateral wrist sprains and right shoulder injury. He was also found to have rapid atrial fibrillation. #Fall/bilateral wrist sprain/right shoulder contusion-fall with FOOSH injury- wrist pain is much improved. Bilateral wrist x-rays and forearm x-ray without fracture. No tenderness to palpation over snuffbox treated by previous hospitalist with steroids. Right shoulder with decreased range of motion, pain and anterior tenderness to palpation, positive Dunn-suspect rotator cuff tear with subacromial inflammation. Fall likely precipitated by hypovolemia and orthostasis which is now resolved - Continue Tylenol as needed - Add ice packs to shoulder - Discontinue steroids - Needs rehab placement once medically stable #Dehydration/hypotension/diarrhea/hypomagnesemia/RAFAEL/hyperkalemia-dehydration hypotension with RAFAEL likely secondary to diarrhea prior to admission. He was given fluids, IV magnesium replacement, blood pressures and diarrhea now resolved/improved. Magnesium still low at 1.5. Renal function normalized. Now potassium elevated at 5.6 - Replace with 3 g of IV magnesium sulfate - Give 1 dose of Lokelma - Follow BMP this afternoon at 1600 and again in the a.m. and treat hyperkalemia accordingly - Discontinue digoxin started recently - Holding home lisinopril, but metformin was resumed #Paroxysmal atrial fibrillation with RVR-remains with uncontrolled heart rates at times into the 150s and 160s with minimal exertion and down in the 80s to 90s at rest. He was loaded with digoxin on 02/01 but this will now be discontinued given his hyperkalemia and hypomagnesemia. The patient is fairly asymptomatic with his atrial fibrillation. His metoprolol dose was also increased. I suspect the high doses of steroids may also have contributed to the increased heart rates - Continue increased dose of metoprolol 50 mg p.o. twice daily - Discontinue digoxin - Discontinue prednisone - Continue to monitor on telemetry - Replete electrolytes-giving IV magnesium, follow BMP and magnesium - Continue Eliquis 5 mg p.o. twice daily - If not improving, consider cardiology consultation #HTN/HLD-BPs are somewhat soft with increased dose of metoprolol - Continue metoprolol 50 mg p.o. twice daily - Continue Jardiance which has some antihypertensive effect - Holding home lisinopril #DM2-blood glucose was hyperglycemic with steroids and now improving. HgbA1c well-controlled at 6.1% - Continue metformin, NovoLog supplemental insulin, Jardiance - Discontinue prednisone #CLL-patient follows with hematology and is not currently on any treatment. His WBC count has jumped to 80 likely due to corticosteroid use - Follow CBC - Patient reports that he would not want any treatment for this in the future #GERD-no acute issues - Continue Protonix 40 mg p.o. daily #Vitamin D deficiency-no acute issues - Continue supplemental vitamin D DVT prophylaxis-Eliquis Disposition-continued stay in PCU, eventually discharge to SNF once rapid A-fib under better control Admission and Anticipated Discharge Date Admission Date: January 28, 2025 Subjective Patient feels better, not much pain in the bilateral wrist. Does have in the right shoulder with movement. Denies chest pains or shortness of breath. He can only feel occasional heart palpitations now and out of the hospital when he is in A-fib. Telemetry with atrial fibrillation PVCs with rates in the 90s to 100s at rest and sustained in the 140s-160s with minimal exertion Physical Exam Constitutional: WD/WN, vitals as above Respiratory: normal respiratory effort, lungs clear to auscultation Cardiovascular: Rate/Rhythm: + tachycardic and + irregularly irregular Heart Sounds: no murmur Extremities: + edema (Trace ankle edema-chronic) Gastrointestinal (Abdomen): normal bowel sounds, soft, nontender, no hepatosplenomegaly Musculoskeletal: Extremities: extremities normal to inspection (Bilateral wrist with full ROM, no TTP) Shoulder: + limited ROM (Decreased flexion and abduction to 100 degrees), + joint line tenderness (Positive TTP anterior shoulder on right) and + Hawkin's test positive (Right); shoulder normal to inspection and no effusion Results & Data Results & Data Vital Signs (Past 12 Hours) Vital Signs Temp Pulse Pulse Resp BP BP Pulse Ox 02/02/25 11:26 36.6 C 62 20 103/68 97 02/02/25 08:13 89 02/02/25 07:17 36.3 C L 86 20 125/75 97 02/02/25 03:37 36.6 C 90 17 116/88 96 O2 Del Method 02/02/25 11:26 Room Air 02/02/25 08:13 02/02/25 07:17 Room Air 02/02/25 03:37 Room Air Laboratory Results CBC, BMP, magnesium reviewed PG Care Time/CCT Total # of Minutes Spent Total Time Spent with Patient: Total time spent is greater than 50% in coordination of care (as documented) at patient's floor/unit and/or counseling patient: Coding Level of Care Code 88426 SUB INP/OBS CARE 3/50MIN Diagnoses Status post fall Z91.81 Atrial fibrillation with RVR I48.91 Acute kidney injury N17.9 CLL (chronic lymphocytic leukemia) C91.10
[2025-02-02] MEDS ORDERED: DIGOXIN 0.125 MG TAB PO SCH (16:00)
[2025-02-02 16:09] LABS: Anion Gap 4.0 (3-11); Blood Urea Nitrogen 37.0 mg/dl (6-23); Calcium 9.4 mg/dl (8.6-10.3); Carbon Dioxide 27.0 mmol/L (21-32); Chloride 104.0 mmol/L (98-107); Creatinine Clr Calc Pharmacy 63.0 ml/min; Glucose 99.0 mg/dl (70-99(Fasting)); Potassium 5.9 mmol/L (3.5-5.1); Sodium 135.0 mmol/L (136-145)
[2025-02-02] MEDS: INSULIN HUMAN REGULAR PER UNIT 10 UNITS in SYRINGE 9.9 ML IV STA (17:16)
[2025-02-02] MEDS: DEXTROSE 50% 50 ML SYRINGE IV ONE (17:17)
[2025-02-02] MEDS: CALCIUM GLUCONATE 1,000 MG/60 ML BAG IV STA (17:21)
[2025-02-02 23:22] LABS: Anion Gap 7.0 (3-11); Blood Urea Nitrogen 34.0 mg/dl (6-23); Calcium 9.4 mg/dl (8.6-10.3); Carbon Dioxide 25.0 mmol/L (21-32); Chloride 104.0 mmol/L (98-107); Creatinine Clr Calc Pharmacy 70.5 ml/min; Glucose 125.0 mg/dl (70-99(Fasting)); Potassium 5.3 mmol/L (3.5-5.1); Sodium 136.0 mmol/L (136-145)
[2025-02-02] MEDS: FUROSEMIDE INJ 20 MG/2 ML VIAL IV ONE ×2 (23:46)
[2025-02-02] MEDS: PLASMA-LYTE A 1,000 ML IV SCH (23:54)
[2025-02-03 07:17] LABS: Hematocrit (blood only) 43.3 % (42.0-52.0); Hemoglobin 13.6 g/dL (14.0-18.0); Mean Corpuscular Hemoglobin 30.4 pg (25.0-34.0); Mean Corpuscular Volume 96.9 fL (80.0-100.0); Platelet Count 310 K/uL (130-400); RDW Standard Deviation 66.2 fL (36.4-46.3); Red Blood Count 4.47 M/uL (4.70-6.10); White Blood Count 103.23 K/ul (4.8-10.8)
[2025-02-03 07:30] LABS: Anion Gap 7.0 (3-11); Blood Urea Nitrogen 35.0 mg/dl (6-23); Calcium 9.3 mg/dl (8.6-10.3); Carbon Dioxide 27.0 mmol/L (21-32); Chloride 103.0 mmol/L (98-107); Creatinine Clr Calc Pharmacy 83.2 ml/min; Glucose 147.0 mg/dl (70-99(Fasting)); Magnesium 1.6 mg/dl (1.7-2.4); Potassium 5.7 mmol/L (3.5-5.1); Sodium 137.0 mmol/L (136-145)
[2025-02-03 08:23] LABS: Immature Granulocytes # (auto) 0.69 K/uL (0.01-0.20); Immature Granulocytes % (auto) 0.7 %; Polychromasia 1+; Smudge Cells Present
--- NOTE | 2025-02-03 08:59 | Cardiology Consultation ---
Date of Consultation February 03, 2025 Assessment & Plan (1) Paroxysmal atrial fibrillation: (2) HTN (hypertension): Plan ASSESSMENT/PLAN: 1. Paroxysmal atrial fibrillation: Asymptomatic. Has been on therapeutic anticoagulation. We discussed treatment strategies. He was very clear that he would not want procedures such as elective cardioversion. He is very interested in medical therapy. Rate control may be challenging with history of sinus bradycardia. Discussed amiodarone, including potential adverse reactions. He was agreeable. Start amiodarone 400 mg twice daily for 8 days and then reduce to 200 mg daily. Monitor TSH and transaminase levels. Reduce metoprolol to his home dose of 25 mg twice daily to avoid significant bradycardia if he should convert. Monitor CBC while on anticoagulation therapy. Echo pending. 2. CLL: He states that he refuses treatment. Leukocytosis has significantly increased while here. Defer to primary hospitalist service. 3. Hypertension: Blood pressure acceptable. Continue plan as above. 4. Disposition: Cardiology will continue to follow. Patient care communicated with primary hospitalist, Dr. Kaplan. Thank you for allowing me to participate in the care of your patient. Please call for any other questions or concerns. Sincerely, Fabien Patterson M.D. History of Present Illness Reason for Consultation: "Rapid A-fib" Requesting Physician: Akila Kaplan MD Attending Physician: Akila Kaplan MD History of Present Illness Mr. Freedman is a very pleasant 74-year-old gentleman with a history significant for paroxysmal atrial fibrillation, CLL, dyslipidemia, hypertension, and type 2 diabetes. He was admitted on 01/28/2025 after falling. He recalls using a walker and walking backwards to use the commode. He said the brakes and the walker and he started falling backwards. ECG on presentation demonstrated some sinus complexes with atrial runs and PVCs. Repeat ECG on 01/31/2025 demonstrated A- fib with RVR. He is asymptomatic in this regard. He denies palpitations, chest pain, shortness of breath, syncope, near syncope. He has chronic lower extremity edema and believes it is better than usual. He has chronic diarrhea, 2-5 episodes per day which he states is usual for him. He denies melena, hematochezia, hematuria, fevers, nausea, vomiting. He stated several times that he is ready to pass from this world when it is time. He is not interested in aggressive measures, including elective cardioversion. Review of systems: As above. Family history: Family history of CAD. Social history: Denies tobacco, alcohol, or drug abuse. His on 03/15/2024. He lives alone. He has 2 daughters, 1 of which is local and the other 1 is his neighbor. He was unaccompanied. Allergies Allergy/AdvReac Type Severity Reaction Status Date / Time Penicillins Allergy Intermediate Hives Verified 01/28/25 19:00 grass pollen AdvReac Intermediate Watery Eye Verified 01/28/25 19:00 house dust AdvReac Intermediate Watery Eye Verified 01/28/25 19:00 Home Medications Medication Instructions Recorded Confirmed Type ascorbic acid (vitamin C) 500 mg 2 cap PO QAM 08/23/18 01/28/25 History capsule cholecalciferol (vitamin D3) 25 1,000 unit PO QAM 08/23/18 01/28/25 History mcg (1,000 unit) capsule (Vitamin D3) multivitamin (Daily Multi-Vitamin 1 tab PO QAM 08/23/18 01/28/25 History tablet) acetaminophen 500 mg tablet 250 mg PO BID Pain 03/27/19 01/28/25 History (Tylenol Extra Strength) calcium carbonate (Tums) 600 mg PO HS PRN Heartburn 03/27/19 01/28/25 History cyanocobalamin (vitamin B-12) 1,000 mcg PO QAM 04/20/22 01/28/25 History 1,000 mcg tablet blood sugar diagnostic (OneTouch 11/08/23 01/13/25 History Verio test strips) pen needle, diabetic 32 gauge x #90 ea 02/26/24 01/13/25 Rx 5/32" simvastatin 10 mg tablet 10 mg PO HS #90 tabs 05/05/24 01/28/25 [facility] 05/16/24 01/13/25 Rx Verio Flex Meter) lisinopril 20 mg tablet 20 mg PO DAILY #90 tabs 07/28/24 01/28/25 Rx apixaban 5 mg tablet (Eliquis) 5 mg PO BID #60 tabs 09/08/24 01/28/25 Rx metoprolol tartrate 25 mg tablet 25 mg PO BID #180 tabs 09/09/24 01/28/25 Rx metformin 1,000 mg tablet 1,000 mg PO BID #180 tabs 09/12/24 01/28/25 Rx empagliflozin 10 mg tablet 10 mg PO QAM 12/31/24 01/28/25 History (Jardiance) insulin glargine 100 unit/mL (3 12 unit subcut HS 12/31/24 01/28/25 History mL) subcutaneous pen (Lantus Solostar U-100 Insulin) 3 In 1 Eye Drop Post Cataracts 1 drp ophthalmic (eye) DIRECTED 01/28/25 01/28/25 History Problem List (Updated 02/03/25 @ 11:21 by Jh Patterson MD) Paroxysmal atrial fibrillation Enteritis (Acute) Acute dehydration (Acute) Acute kidney injury (Acute) Status post fall CLL (chronic lymphocytic leukemia) (Acute) Screening for prostate cancer Atrial fibrillation Ventricular bigeminy Atrial fibrillation with RVR (Acute) Leukocytosis (Acute) Vitamin D deficiency (Acute) History of SCC (squamous cell carcinoma) of skin (Acute) Hyperlipidemia (Acute) HTN (hypertension) (Acute) Obesity (Acute) Osteoarthritis of knee (Acute) Seborrheic keratosis (Acute) Type 2 diabetes mellitus without complication (Acute) Patient History Medical History HTN (hypertension) HLD (hyperlipidemia) Hx of squamous cell carcinoma "dr assumed it was an SCC, pt knocked it off arm" CLL (chronic lymphocytic leukemia) Atrial fibrillation currently on eliquis; f/u PCP only Bacteremia resolved Melanoma dx 1989, sx and chemo Diabetes IDDM Surgical History Hx of left cataract extraction (01/07/25) Hx of colonoscopy History of bowel resection 1989, 04/20 to melanoma internally Status post Mohs surgery incorrect per pt. and dtr. Family History Father Myocardial infarction Acute leukemia Sister Acute leukemia Breast cancer Denies family history of Ovarian cancer Prostate cancer Lung cancer Colorectal cancer Stroke Social History Smoking Status: Never smoker Second Hand Exposure: No; Do You Dip or Chew Tobacco: No; Tobacco Cessation Education Requested by Patient: No Hx Alcohol Use: No Hx Substance Use: No Preferred Language: Tongan Communication Ability: Effective Visual Impairment: No Limitations Hearing Ability: Normal Sailing Instructor Required: No Beliefs That Will Affect Care: None marital status: Current Living Situation: Alone Current Living Situation Comment: lives at home alone, daughter lives close current occupational status: retired Other Information That Helps Us Care for You: No Feels Safe at Home: Yes Safety Concerns: Feels Safe At This Time Childhood Exposure to Second-Hand Smoke: No Physical Activity Frequency: 3-4 Times per Week Seatbelt Use: always Assistive Devices: Walker Physical Exam Physical Exam: Gen.: No acute distress. Alert and oriented. HEENT: Anicteric sclera. Neck: No JVD. No bruits. Normal carotid upstrokes bilaterally. Cardiac: Irregularly irregular. Tachycardic. Normal S1-S2. No murmurs, rubs, or gallops. Pulmonary: Decreased breath sounds bilaterally, but otherwise clear to auscultation bilaterally without wheezes, rales, or rhonchi. Abdomen: Soft, nontender, nondistended, with normoactive bowel sounds. No bruits noted. Extremities: 2+ radial pulses bilaterally. 2+ posterior tibialis pulses bilaterally. Trace bilateral lower extremity edema, more prominent in the left compared to the right. No cyanosis. Psychiatric: Affect appears appropriate. Results & Data Vital Signs (Past 12 Hours) Vital Signs Temp Pulse Pulse Resp BP BP Pulse Ox 02/03/25 07:46 83 02/03/25 07:46 02/03/25 03:18 36.4 C L 72 12 111/75 96 02/02/25 23:10 36.8 C 102 H 16 125/80 97 02/02/25 21:29 114 H O2 Del Method 02/03/25 07:46 02/03/25 07:46 Room Air 02/03/25 03:18 Room Air 02/02/25 23:10 Room Air 02/02/25 21:29 Intake & Output 02/01/25 02/02/25 02/03/25 02/04/25 06:59 06:59 06:59 06:59 Intake Total 840 / 840 600 / 600 878.333 / 000.516 4062 / 1000 Output Total 2125 / 2125 3000 / 3000 1075 / 1075 400 / 400 Balance -1285 / -1285 -2400 / -2400 -196.667 / -196.667 600 / 600 Weight 184 lb 8.43 oz 180 lb 1.883 oz 182 lb 15.739 oz Laboratory Results Laboratory Results - last 24 hr 02/02/25 02/02/25 02/02/25 11:34 15:42 16:10 WBC RBC Hgb Hct MCV MCH MCHC RDW Std Deviation RDW Coeff of Jackie Plt Count MPV Immature Gran % (Auto) Neut % (Auto) Lymph % (Auto) [place] % (Auto) Eos % (Auto) Baso % (Auto) Neut # (Auto) Lymph # (Auto) [place] # (Auto) Eos # (Auto) Baso # (Auto) Immature Gran # (Auto) Absolute Nucleated RBC Smudge Cells Polychromasia Sodium 135 L Potassium 5.9 H Chloride 104 Carbon Dioxide 27 Anion Gap 4 BUN 37 H Creatinine 1.03 Est Cr Clr Drug Dosing 63.0 eGFR 75.28 BUN/Creatinine Ratio 35.9 H Glucose 99 POC Glucose 167 H 91 Calcium 9.4 Magnesium 02/02/25 02/02/25 02/02/25 18:00 20:25 22:46 WBC RBC Hgb Hct MCV MCH MCHC RDW Std Deviation RDW Coeff of Jackie Plt Count MPV Immature Gran % (Auto) Neut % (Auto) Lymph % (Auto) [place] % (Auto) Eos % (Auto) Baso % (Auto) Neut # (Auto) Lymph # (Auto) [place] # (Auto) Eos # (Auto) Baso # (Auto) Immature Gran # (Auto) Absolute Nucleated RBC Smudge Cells Polychromasia Sodium 136 Potassium 5.3 H Chloride 104 Carbon Dioxide 25 Anion Gap 7 BUN 34 H Creatinine 0.92 Est Cr Clr Drug Dosing 70.5 eGFR 86.21 BUN/Creatinine Ratio 37.0 H Glucose 125 H POC Glucose 162 H 100 H Calcium 9.4 Magnesium 02/03/25 02/03/25 06:48 07:24 WBC 103.23 H* RBC 4.47 L Hgb 13.6 L Hct 43.3 MCV 96.9 MCH 30.4 MCHC 31.4 L RDW Std Deviation 66.2 H RDW Coeff of Jackie 19.6 H Plt Count 310 MPV 10.5 Immature Gran % (Auto) 0.7 Neut % (Auto) 8.7 Lymph % (Auto) 87.4 [place] % (Auto) 2.7 Eos % (Auto) 0.4 Baso % (Auto) 0.1 Neut # (Auto) 8.96 H Lymph # (Auto) 90.27 H [place] # (Auto) 2.77 H Eos # (Auto) 0.42 Baso # (Auto) 0.12 Immature Gran # (Auto) 0.69 H Absolute Nucleated RBC 0.02 Smudge Cells Present Polychromasia 1+ Sodium 137 Potassium 5.7 H Chloride 103 Carbon Dioxide 27 Anion Gap 7 BUN 35 H Creatinine 0.78 Est Cr Clr Drug Dosing 83.2 eGFR 92.42 BUN/Creatinine Ratio 44.9 H Glucose 147 H POC Glucose 143 H Calcium 9.3 Magnesium 1.6 L Diagnostic Findings Labs reviewed and notable for hyperkalemia, stable renal function, mild hypomagnesemia, stable hemoglobin, worsening leukocytosis, normal digoxin level on 02/02/2025. History and physical report reviewed. ECGs personally reviewed: ECG 01/31/2025 at 1750: Atrial fibrillation 125 bpm. Possible inferior infarct. Chest x-ray report reviewed from 01/29/2025: Right basilar predominant opacities suggestive of atelectasis versus pneumonia per radiology. Right hemidiaphragmatic elevation. Echo 08/31/2018: Normal LV systolic function per report. Medications Administered Current Inpatient Medications Acetaminophen (Acetaminophen 500 Mg Tab) 1,000 mg PO Q8H PRN PRN Reason: Pain or Fever Stop: 03/02/25 19:44 Last Admin: 02/02/25 09:36 Dose: 1,000 mg Apixaban (Apixaban 5 Mg Tablet) 5 mg PO BID [facility] Stop: 02/27/25 22:10 Last Admin: 02/02/25 20:02 Dose: 5 mg Ascorbic Acid (Ascorbic Acid 500 Mg Tab) 1,000 mg PO QAM [facility] Stop: 02/28/25 08:59 Last Admin: 02/02/25 08:58 Dose: 1,000 mg Cyanocobalamin (Cyanocobalamin (B-12) 500 Mcg Tablet) 1,000 mcg PO QAM MARCELA Stop: 02/28/25 08:59 Last Admin: 02/02/25 08:58 Dose: 1,000 mcg Dextrose (Dextrose 50% 50 Ml Syringe) 25 - 50 ml IV UD PRN; Protocol PRN Reason: Hypoglycemia Protocol Stop: 02/27/25 22:10 Empagliflozin (Empagliflozin 10 Mg Tab) 10 mg PO DAILY MARCELA Stop: 03/02/25 08:59 Last Admin: 02/02/25 08:59 Dose: 10 mg Glucagon (Glucagon For Inj 1 Mg Vial) 1 mg SQ UD PRN; Protocol PRN Reason: Hypoglycemia Protocol Stop: 02/27/25 22:10 Glucose (Glucose 40% Gel 15 Gm Tube) 15 - 30 gm PO UD PRN; Protocol PRN Reason: Hypoglycemia Protocol Stop: 02/27/25 22:10 Glucose (Glucose 10 Tab/Tube) 4 - 8 tab PO UD PRN; Protocol PRN Reason: Hypoglycemia Protocol Stop: 02/27/25 22:10 Parenteral Electrolytes (Plasma-Lyte A Ph 7.4) 1,000 mls @ 100 mls/hr IV .Q10H MARCELA Stop: 02/03/25 09:44 Last Admin: 02/02/25 23:54 Dose: 100 mls/hr Insulin Aspart (Insulin Aspart Per Unit Charge) 0 units SC ACHS MARCELA Stop: 02/27/25 22:10 Last Admin: 02/02/25 20:29 Dose: Not Given Metformin HCl (Metformin Hcl 500 Mg Tab) 1,000 mg PO BIDM MARCELA Stop: 03/02/25 08:59 Last Admin: 02/03/25 08:47 Dose: 1,000 mg Metoprolol Tartrate (Metoprolol Tartrate 50 Mg Tab) 50 mg PO BID M[facility]ELA Stop: 02/28/25 10:44 Last Admin: 02/02/25 20:02 Dose: 50 mg Miscellaneous (Carbohydrates For Hypoglycemia ) 15 - 30 gm PO UD PRN PRN Reason: Hypoglycemia Protocol Stop: 02/27/25 22:10 Multivitamins (Multivitamin Tab) 1 tab PO QAM MARCELA Stop: 02/28/25 08:59 Last Admin: 02/02/25 08:57 Dose: 1 tab 3 In 1 Right Eye Drops: Non-Formulary Patient's Own Med 1 each OPR TID MARCELA Stop: 02/28/25 20:59 Last Admin: 02/02/25 20:02 Dose: 1 drops 3 In 1 Left Eye Drops: Non-Formulary Patient's Own Med 1 each OPL DAILY MARCELA Stop: 02/28/25 20:59 Last Admin: 02/02/25 08:56 Dose: 1 drops Ondansetron HCl (Ondansetron Inj 2 Mg/Ml 2 Ml Vial) 4 mg IV Q6H PRN PRN Reason: Nausea Stop: 02/27/25 22:10 Pantoprazole Sodium (Pantoprazole 40 Mg Tab) 40 mg PO DAILY MARCELA Stop: 03/01/25 08:59 Last Admin: 02/02/25 08:58 Dose: 40 mg Simvastatin (Simvastatin 10 Mg Tab) 10 mg PO HS MARCELA Stop: 02/27/25 22:10 Last Admin: 02/02/25 20:02 Dose: 10 mg Sodium Zirconium Cyclosilicate (Sodium Zirconium Cyclosilicate 10 Gm Packet) 10 gm PO DAILY@1100 [facility] Stop: 03/04/25 10:59 Last Admin: 02/02/25 10:04 Dose: 10 gm Vitamin D (Cholecalciferol 25 Mcg (1000 Units) Tab) 25 mcg PO QAM MARCELA Stop: 02/28/25 08:59 Last Admin: 02/02/25 08:57 Dose: 25 mcg PG Care Time/CCT Total # of Minutes Spent Total Time Spent with Patient: Total time spent is greater than 50% in coordination of care (as documented) at patient's floor/unit and/or counseling patient: Coding Level of Care Code 83152 INT INP/OBS CARE 3/75MIN Diagnoses Paroxysmal atrial fibrillation I48.0 HTN (hypertension) I10
[2025-02-03] MEDS: PERFLUTREN LIPID MICROSPHERE (DEFINITY) IV ONE (09:36)
[2025-02-03 10:38] LABS: Uric Acid 5.8 mg/dl (2.6-7.2)
[2025-02-03] MEDS: MAGNESIUM SULFATE / D5W 1 GM/100 ML BAG IV SCH (11:22)
[2025-02-03] MEDS: INSULIN HUMAN REGULAR PER UNIT 10 UNITS in SYRINGE 9.9 ML IV STA (11:23)
[2025-02-03] MEDS: CALCIUM GLUCONATE 1,000 MG/60 ML BAG IV STA (11:23)
[2025-02-03] MEDS: DEXTROSE 50% 50 ML SYRINGE IV STA (11:32)
--- NOTE | 2025-02-03 11:57 | XCELERA ---
[id number] [id number]
[2025-02-03] MEDS: AMIODARONE 200 MG TAB PO SCH (16:11)
--- NOTE | 2025-02-03 16:21 | Hospitalist Progress Note ---
Date of Service February 03, 2025 Assessment & Plan (1) Status post fall: (2) Atrial fibrillation with RVR: (3) Acute kidney injury: (4) CLL (chronic lymphocytic leukemia): Plan This patient is a 74-year-old male with a history of CLL, paroxysmal atrial fibrillation on Eliquis, HTN, HLD, DM2, OA, vitamin D deficiency, who presents with diarrhea, dehydration, RAFAEL, hypomagnesemia, a fall with bilateral wrist sprains and right shoulder injury. He was also found to have rapid atrial fibrillation. #Fall/bilateral wrist sprain/right shoulder contusion-fall with FOOSH injury- wrist pain is much improved. Bilateral wrist x-rays and forearm x-ray without fracture. No tenderness to palpation over snuffbox -sprains treated by previous hospitalist with steroids. Right shoulder with decreased range of motion, pain and anterior tenderness to palpation, positive Dunn-suspect rotator cuff tear with subacromial inflammation. Fall likely precipitated by hypovolemia and orthostasis which is now resolved - Continue Tylenol as needed - Continue ice packs to shoulder - Discontinued steroids - Needs rehab placement once medically stable #Dehydration/hypotension/diarrhea/hypomagnesemia/RAFAEL/hyperkalemia-dehydration hypotension with RAFAEL likely secondary to diarrhea prior to admission. He was given fluids, IV magnesium replacement, blood pressures and diarrhea now resolved/improved. Magnesium still low at 1.6 despite replacement. Renal function normalized. Remains hyperkalemic despite treatment and low K diet. Suspect could be from significant leukorrhea - Replace with 2 g of IV magnesium sulfate - Continue daily Lokelma -treat hyperkalemia again with IV calcium gluc, insulin 10 units regular IV x 1 along with D50W - Follow BMP this afternoon at 1600 and again in the a.m. and treat hyperkalemia accordingly - Discontinued digoxin started recently - Holding home lisinopril, but metformin was resumed #Paroxysmal atrial fibrillation with RVR-remains with uncontrolled heart rates at times into the 150s and 160s with minimal exertion and down in the 80s to 90s at rest. He was loaded with digoxin on 02/01 but this was discontinued given his hyperkalemia and hypomagnesemia. The patient is fairly asymptomatic with his atrial fibrillation. His metoprolol dose was also increased. I suspect the high doses of steroids may also have contributed to the increased heart rates- these were stopped - Appreciate Cardiology consult -reduce metoprolol back to 25 mg p.o. twice daily as had previous bradycardia in sinus rhythm -start loading dose of amiodarone 400mg po bid-monitor TSH, LFTs as outpt - Continue to monitor on telemetry - Replete electrolytes-giving IV magnesium, follow BMP and magnesium - Continue Eliquis 5 mg p.o. twice daily -check ECHO #HTN/HLD-BPs are somewhat soft with increased dose of metoprolol - Continue metoprolol 50 mg p.o. twice daily - Continue Jardiance which has some antihypertensive effect - Holding home lisinopril #DM2-blood glucose was hyperglycemic with steroids and now improving. HgbA1c well-controlled at 6.1% - Continue metformin, NovoLog supplemental insulin, Jardiance - Discontinue prednisone #CLL-patient follows with hematology and is not currently on any treatment. His WBC count has jumped to 100 likely due to previous corticosteroid use - Follow CBC - Patient reports that he would not want any treatment for this in the future -check uric acid, LDH, phos for TLS given hyperkalemia #GERD-no acute issues - Continue Protonix 40 mg p.o. daily #Vitamin D deficiency-no acute issues - Continue supplemental vitamin D DVT prophylaxis-Eliquis Disposition-continued stay on tele, eventually discharge to SNF once rapid A-fib under better control Admission and Anticipated Discharge Date Admission Date: January 28, 2025 Subjective Pt feels fine, no complaints. Cannot really tell if in rapid Afib. Discussed care with Cardiology. Pt reports he is ready to if it's his time. Tele with Afib rates 90-140s Physical Exam Constitutional: WD/WN, vitals as above Respiratory: normal respiratory effort, lungs clear to auscultation Cardiovascular: Rate/Rhythm: + tachycardic and + irregularly irregular Heart Sounds: no murmur Extremities: + edema (Trace ankle edema-chronic) Gastrointestinal (Abdomen): normal bowel sounds, soft, nontender, no hepatosplenomegaly Musculoskeletal: Extremities: extremities normal to inspection (Bilateral wrist with full ROM, no TTP) Results & Data Results & Data Vital Signs (Past 12 Hours) Vital Signs Temp Pulse Pulse Resp BP BP Pulse Ox 02/03/25 12:06 36.4 C L 80 18 112/73 96 02/03/25 10:21 36.6 C 104 H 16 114/79 95 02/03/25 07:46 83 02/03/25 07:46 O2 Del Method 02/03/25 12:06 Room Air 02/03/25 10:21 Room Air 02/03/25 07:46 02/03/25 07:46 Room Air Laboratory Results CBC, BMP x 2, Mag reviewed PG Care Time/CCT Total # of Minutes Spent Total Time Spent with Patient: Total time spent is greater than 50% in coordination of care (as documented) at patient's floor/unit and/or counseling patient: Coding Level of Care Code 38582 SUB INP/OBS CARE 3/50MIN Diagnoses Status post fall Z91.81 Atrial fibrillation with RVR I48.91 Acute kidney injury N17.9 CLL (chronic lymphocytic leukemia) C91.10
[2025-02-03] MEDS ORDERED: AMIODARONE 200 MG TAB PO SCH (17:00)
[2025-02-03 17:02] LABS: Anion Gap 9.0 (3-11); Blood Urea Nitrogen 34.0 mg/dl (6-23); Calcium 9.1 mg/dl (8.6-10.3); Carbon Dioxide 23.0 mmol/L (21-32); Chloride 104.0 mmol/L (98-107); Creatinine Clr Calc Pharmacy 83.2 ml/min; Glucose 75.0 mg/dl (70-99(Fasting)); Potassium 4.7 mmol/L (3.5-5.1); Sodium 136.0 mmol/L (136-145)
[2025-02-03] MEDS: METOPROLOL TARTRATE 25 MG TAB PO SCH (20:21)
[2025-02-04 08:14] LABS: Hematocrit (blood only) 37.7 % (42.0-52.0); Hemoglobin 12.0 g/dL (14.0-18.0); Mean Corpuscular Hemoglobin 30.6 pg (25.0-34.0); Mean Corpuscular Volume 96.2 fL (80.0-100.0); Platelet Count 310 K/uL (130-400); RDW Standard Deviation 66.0 fL (36.4-46.3); Red Blood Count 3.92 M/uL (4.70-6.10); White Blood Count 88.48 K/ul (4.8-10.8)
[2025-02-04 08:24] LABS: Anion Gap 7.0 (3-11); Blood Urea Nitrogen 30.0 mg/dl (6-23); Calcium 8.8 mg/dl (8.6-10.3); Carbon Dioxide 25.0 mmol/L (21-32); Chloride 106.0 mmol/L (98-107); Creatinine Clr Calc Pharmacy 94.0 ml/min; Glucose 151.0 mg/dl (70-99(Fasting)); Magnesium 1.5 mg/dl (1.7-2.4); Potassium 4.9 mmol/L (3.5-5.1); Sodium 138.0 mmol/L (136-145)
[2025-02-04 09:01] LABS: Immature Granulocytes # (auto) 0.71 K/uL (0.01-0.20); Immature Granulocytes % (auto) 0.8 %; Polychromasia 1+; Smudge Cells Present
--- NOTE | 2025-02-04 11:04 | Cardiology Progress Note ---
Date of Service February 04, 2025 Assessment & Plan (1) Paroxysmal atrial fibrillation: (2) HTN (hypertension): Plan ASSESSMENT/PLAN: 1. Paroxysmal atrial fibrillation: Asymptomatic. Converted 02/04/2025 just before 1 AM after initiation of oral amiodarone. He has been on therapeutic anticoagulation chronically. He preferred medical therapy versus procedures. Rate control may be challenging with history of sinus bradycardia. We have discussed potential adverse reactions of amiodarone. Continue amiodarone 400 mg twice daily for total of 8 days and then reduce to 200 mg daily. Monitor TSH and transaminase levels. There are documented episodes of bradycardia based on vital sign evaluation however it is likely pulse deficit given PVCs. On the monitor, no significant sinus bradycardia. Metoprolol discontinued as his heart rate may further decline as amiodarone load continues. Monitor CBC while on anticoagulation therapy. 2. CLL: He states that he refuses treatment. Defer to primary hospitalist service. 3. Hypertension: Blood pressure acceptable. Emilio discontinued today to avoid bradycardia while loading amiodarone. 4. Disposition: Cardiology will sign off at this time. Follow-up in the cardiology office in the next 2 to 4 weeks. Patient care communicated with primary hospitalist, Dr. Kaplan. Admission and Anticipated Discharge Date Admission Date: January 28, 2025 Subjective Patient seen this morning. He denies chest pain, shortness of breath, syncope, near syncope, palpitations, edema, or bleeding. He states that he felt well. He was able to ambulate in the hallway without symptoms. He was unaccompanied. Physical Exam Physical Exam: Gen.: No acute distress. Alert and oriented. HEENT: Anicteric sclera. Neck: No JVD. Cardiac: Regular with ectopy. Normal S1-S2. No murmurs, rubs, or gallops. Pulmonary: Decreased breath sounds bilaterally, but otherwise clear to auscultation bilaterally without wheezes, rales, or rhonchi. Abdomen: Soft, nontender, nondistended, with normoactive bowel sounds. No bruits noted. Extremities: 2+ radial pulses bilaterally. 2+ posterior tibialis pulses bilaterally. Trace bilateral lower extremity edema, more prominent in the left compared to the right. No cyanosis. Results & Data Vital Signs (Past 12 Hours) Vital Signs Temp Pulse Pulse Resp BP Pulse Ox O2 Del Method 02/04/25 10:47 54 L 11/19/25 07:50 36.3 C L 47 L 16 115/75 98 Room Air 02/04/25 03:28 36.6 C 42 L 18 113/66 94 Room Air 02/04/25 00:08 36.4 C L 88 20 96/63 L 96 Room Air Intake & Output 02/02/25 02/03/25 02/04/25 02/05/25 06:59 06:59 06:59 06:59 Intake Total 600 / 600 878.333 / 944.819 2468.167 / 1709.167 Output Total 3000 / 3000 1075 / 1075 2029 / 2029 Balance -2400 / -2400 -196.667 / -196.667 -320.833 / -320.833 Weight 180 lb 1.883 oz 182 lb 15.739 oz 181 lb 3.52 oz Laboratory Results Laboratory Results - last 24 hr 02/03/25 02/03/25 02/03/25 11:30 16:28 16:29 WBC RBC Hgb Hct MCV MCH MCHC RDW Std Deviation RDW Coeff of Jackie Plt Count MPV Immature Gran % (Auto) Neut % (Auto) Lymph % (Auto) [place] % (Auto) Eos % (Auto) Baso % (Auto) Neut # (Auto) Lymph # (Auto) [place] # (Auto) Eos # (Auto) Baso # (Auto) Immature Gran # (Auto) Absolute Nucleated RBC Nucleated RBC % (auto) Smudge Cells Polychromasia Sodium 136 Potassium 4.7 Chloride 104 Carbon Dioxide 23 Anion Gap 9 BUN 34 H Creatinine 0.78 Est Cr Clr Drug Dosing 83.2 eGFR 92.42 BUN/Creatinine Ratio 43.6 H Glucose 75 POC Glucose 171 H 70 Calcium 9.1 Magnesium 02/03/25 02/03/25 02/04/25 17:05 20:18 07:44 WBC 88.48 H* RBC 3.92 L Hgb 12.0 L Hct 37.7 L MCV 96.2 MCH 30.6 MCHC 31.8 L RDW Std Deviation 66.0 H RDW Coeff of Jackie 19.3 H Plt Count 310 MPV 10.1 Immature Gran % (Auto) 0.8 Neut % (Auto) 9.2 Lymph % (Auto) 86.5 [place] % (Auto) 2.9 Eos % (Auto) 0.5 Baso % (Auto) 0.1 Neut # (Auto) 8.16 H Lymph # (Auto) 76.50 H [place] # (Auto) 2.59 H Eos # (Auto) 0.44 Baso # (Auto) 0.08 Immature Gran # (Auto) 0.71 H Absolute Nucleated RBC 0.09 Nucleated RBC % (auto) 0.1 Smudge Cells Present Polychromasia 1+ Sodium 138 Potassium 4.9 Chloride 106 Carbon Dioxide 25 Anion Gap 7 BUN 30 H Creatinine 0.69 Est Cr Clr Drug Dosing 94.0 eGFR 95.91 BUN/Creatinine Ratio 43.5 H Glucose 151 H POC Glucose 119 H 127 H Calcium 8.8 Magnesium 1.5 L 02/04/25 07:54 WBC RBC Hgb Hct MCV MCH MCHC RDW Std Deviation RDW Coeff of Jackie Plt Count MPV Immature Gran % (Auto) Neut % (Auto) Lymph % (Auto) [place] % (Auto) Eos % (Auto) Baso % (Auto) Neut # (Auto) Lymph # (Auto) [place] # (Auto) Eos # (Auto) Baso # (Auto) Immature Gran # (Auto) Absolute Nucleated RBC Nucleated RBC % (auto) Smudge Cells Polychromasia Sodium Potassium Chloride Carbon Dioxide Anion Gap BUN Creatinine Est Cr Clr Drug Dosing eGFR BUN/Creatinine Ratio Glucose POC Glucose 138 H Calcium Magnesium Diagnostic Findings Labs reviewed and notable for stable renal function, improved leukocytosis but still elevated (CLL), mild anemia. ECG personally reviewed 02/04/2025 at 6:12 AM: Sinus with PVCs 64 bpm. Possible inferior infarct. Telemetry personally reviewed: Atrial fibrillation converted to sinus rhythm on 02/04/2025 at 0058. Has since been in sinus rhythm with PVCs. Medications Administered Current Inpatient Medications Acetaminophen (Acetaminophen 500 Mg Tab) 1,000 mg PO Q8H PRN PRN Reason: Pain or Fever Stop: 03/02/25 19:44 Last Admin: 02/02/25 09:36 Dose: 1,000 mg Amiodarone HCl (Amiodarone 200 Mg Tab) 200 mg PO DAILY [facility] Stop: 03/14/25 08:59 Amiodarone HCl (Amiodarone 200 Mg Tab) 400 mg PO BIDM [facility] Stop: 02/11/25 08:01 Last Admin: 02/04/25 09:52 Dose: 400 mg Apixaban (Apixaban 5 Mg Tablet) 5 mg PO BID [facility] Stop: 02/27/25 22:10 Last Admin: 02/04/25 09:54 Dose: 5 mg Ascorbic Acid (Ascorbic Acid 500 Mg Tab) 1,000 mg PO QAM [facility] Stop: 02/28/25 08:59 Last Admin: 02/04/25 09:54 Dose: 1,000 mg Cyanocobalamin (Cyanocobalamin (B-12) 500 Mcg Tablet) 1,000 mcg PO QAM [facility] Stop: 02/28/25 08:59 Last Admin: 02/04/25 09:54 Dose: 1,000 mcg Dextrose (Dextrose 50% 50 Ml Syringe) 25 - 50 ml IV UD PRN; Protocol PRN Reason: Hypoglycemia Protocol Stop: 02/27/25 22:10 Empagliflozin (Empagliflozin 10 Mg Tab) 10 mg PO DAILY [facility] Stop: 03/02/25 08:59 Last Admin: 02/04/25 09:54 Dose: 10 mg Glucagon (Glucagon For Inj 1 Mg Vial) 1 mg SQ UD PRN; Protocol PRN Reason: Hypoglycemia Protocol Stop: 02/27/25 22:10 Glucose (Glucose 40% Gel 15 Gm Tube) 15 - 30 gm PO UD PRN; Protocol PRN Reason: Hypoglycemia Protocol Stop: 02/27/25 22:10 Glucose (Glucose 10 Tab/Tube) 4 - 8 tab PO UD PRN; Protocol PRN Reason: Hypoglycemia Protocol Stop: 02/27/25 22:10 Insulin Aspart (Insulin Aspart Per Unit Charge) 0 units SC ACHS [facility] Stop: 02/27/25 22:10 Last Admin: 02/04/25 09:50 Dose: 4 units Metformin HCl (Metformin Hcl 500 Mg Tab) 1,000 mg PO BIDM [facility] Stop: 03/02/25 08:59 Last Admin: 02/04/25 09:53 Dose: 1,000 mg Miscellaneous (Carbohydrates For Hypoglycemia ) 15 - 30 gm PO UD PRN PRN Reason: Hypoglycemia Protocol Stop: 02/27/25 22:10 Multivitamins (Multivitamin Tab) 1 tab PO QAM [facility] Stop: 02/28/25 08:59 Last Admin: 02/04/25 09:54 Dose: 1 tab 3 In 1 Right Eye Drops: Non-Formulary Patient's Own Med 1 each OPR TID [facility] Stop: 02/28/25 20:59 Last Admin: 02/04/25 09:55 Dose: 1 drops 3 In 1 Left Eye Drops: Non-Formulary Patient's Own Med 1 each OPL DAILY [facility] Stop: 02/28/25 20:59 Last Admin: 02/04/25 09:55 Dose: 1 drops Ondansetron HCl (Ondansetron Inj 2 Mg/Ml 2 Ml Vial) 4 mg IV Q6H PRN PRN Reason: Nausea Stop: 02/27/25 22:10 Pantoprazole Sodium (Pantoprazole 40 Mg Tab) 40 mg PO DAILY [facility] Stop: 03/01/25 08:59 Last Admin: 02/04/25 09:55 Dose: 40 mg Simvastatin (Simvastatin 10 Mg Tab) 10 mg PO HS [facility] Stop: 02/27/25 22:10 Last Admin: 02/03/25 20:21 Dose: 10 mg Sodium Zirconium Cyclosilicate (Sodium Zirconium Cyclosilicate 10 Gm Packet) 10 gm PO DAILY@1100 [facility] Stop: 03/04/25 10:59 Last Admin: 02/03/25 11:25 Dose: 10 gm Vitamin D (Cholecalciferol 25 Mcg (1000 Units) Tab) 25 mcg PO QAM [facility] Stop: 02/28/25 08:59 Last Admin: 02/04/25 09:54 Dose: 25 mcg PG Care Time/CCT Total # of Minutes Spent Total Time Spent with Patient: Total time spent is greater than 50% in coordination of care (as documented) at patient's floor/unit and/or counseling patient: Coding Level of Care Code 63648 SUB INP/OBS CARE 3/50MIN Diagnoses Paroxysmal atrial fibrillation I48.0 HTN (hypertension) I10
[2025-02-04] MEDS: MAGNESIUM SULFATE / D5W 1 GM/100 ML BAG IV SCH (11:27)
[2025-02-04 11:45] LABS: Thyroid Stimulating Hormone 1.35 uIu/ml (0.300-4.500)
--- NOTE | 2025-02-04 17:17 | Hospitalist Progress Note ---
Date of Service February 04, 2025 Assessment & Plan (1) Status post fall: (2) Atrial fibrillation with RVR: (3) Acute kidney injury: (4) CLL (chronic lymphocytic leukemia): Plan This patient is a 74-year-old male with a history of CLL, paroxysmal atrial fibrillation on Eliquis, HTN, HLD, DM2, OA, vitamin D deficiency, who presents with diarrhea, dehydration, RAFAEL, hypomagnesemia, a fall with bilateral wrist sprains and right shoulder injury. He was also found to have rapid atrial fibrillation. #Fall/bilateral wrist sprain/right shoulder contusion-fall with FOOSH injury- wrist pain is now completely resolved. Bilateral wrist x-rays and forearm x-ray without fracture. No tenderness to palpation over snuffbox -sprains treated by previous hospitalist with steroids. Right shoulder with decreased range of motion, pain and anterior tenderness to palpation, positive Dunn-suspect rotator cuff tear with subacromial inflammation but this is also now improving. Fall likely precipitated by hypovolemia and orthostasis which is now resolved - Continue Tylenol as needed - Continue ice packs to shoulder - Discontinued steroids - Needs rehab placement once medically stable #Dehydration/hypotension/diarrhea/hypomagnesemia/RAFAEL/hyperkalemia-dehydration, hypotension with RAFAEL likely secondary to diarrhea prior to admission. He was given fluids, IV magnesium replacement. Blood pressures and diarrhea now resolved/improved. Magnesium remains low despite replacement many days of IV replacement. He is on a PPI which may be contributing to hypomagnesemia. Renal function normalized. He was hyperkalemic for 2 days which was treated with Lokelma, low potassium diet, and 2 rounds of calcium gluconate/insulin/D50. Suspect could be from significant leukorrhea which is now improving after steroids were stopped. - Replace magnesium again with 2 g of IV magnesium sulfate - Can now discontinue Lokelma and patient request discontinuing low potassium diet so he can eat mashed potatoes - Holding home lisinopril, but metformin was resumed #Paroxysmal atrial fibrillation with RVR-remains with uncontrolled heart rates at times into the 150s and 160s with minimal exertion and down in the 80s to 90s at rest. He was loaded with digoxin on 02/01 but this was discontinued given his hyperkalemia and hypomagnesemia. The patient is fairly asymptomatic with his atrial fibrillation. His metoprolol dose was also increased. I suspect the high doses of steroids may also have contributed to the increased heart rates- these were stopped. He converted to sinus rhythm after starting on oral amiodarone load on 02/03. He is now in sinus bradycardia with rates in the 40s to 60s. Echo with LVEF 60-65%, moderate LVH, mildly dilated thoracic root at 4.2 cm - Appreciate Cardiology consult-have now signed off and recommend follow-up with cardiology as an outpatient in 2-4 weeks - Discontinue metoprolol due to bradycardia while on amiodarone load - Continue loading dose of amiodarone 400mg po bid times 8 days followed by 200 mg daily -monitor TSH, LFTs as outpt while on amiodarone - Continue to monitor on telemetry - Replete electrolytes-giving IV magnesium, follow BMP and magnesium - Continue Eliquis 5 mg p.o. twice daily #HTN/HLD-BPs are normal - Discontinue metoprolol for bradycardia - Continue Jardiance which has some antihypertensive effect - Holding home lisinopril but likely will be able to resume now that RAFAEL and hyperkalemia are resolved #DM2-blood glucose was hyperglycemic with steroids given on admission and now improving. HgbA1c well-controlled at 6.1% - Continue metformin, NovoLog supplemental insulin, Jardiance #CLL-patient follows with hematology and is not currently on any treatment. His WBC count has jumped to 100 likely due to previous corticosteroid use. Steroids were stopped and WBC count now decreasing back to 88K. Uric acid, LDH, and phosphorus are all normal - Follow CBC - Patient reports that he would not want any treatment for this in the future #GERD-no acute issues - Continue Protonix 40 mg p.o. daily #Vitamin D deficiency-no acute issues - Continue supplemental vitamin D DVT prophylaxis-Eliquis Disposition-[facility], awaiting bed availability at [facility] Admission and Anticipated Discharge Date Admission Date: January 28, 2025 Subjective Patient converted into sinus rhythm last evening after being started on oral amiodarone load yesterday. He does report feeling much better now that he is in sinus rhythm. Denies any pain in the wrist and the pain in his right shoulder is also much improved. The range of motion in his right shoulder he has noticed is improved. He moved his bowels yesterday but not yet today. He is voiding. He is eating well. Telemetry with sinus bradycardia with rates in the 40s to 60s Physical Exam Constitutional: WD/WN, vitals as above Respiratory: normal respiratory effort, lungs clear to auscultation Cardiovascular: Rate/Rhythm: regular rhythm and + bradycardic Heart Sounds: no murmur Extremities: + edema (Trace ankle edema-chronic) Gastrointestinal (Abdomen): normal bowel sounds, soft, nontender, no hepatosplenomegaly Musculoskeletal: Extremities: extremities normal to inspection (Bilateral wrist with full ROM, no TTP) Shoulder: shoulder normal to inspection Psychiatric: A+Ox3, euthymic affect Results & Data Results & Data Vital Signs (Past 12 Hours) Vital Signs Temp Pulse Pulse Resp BP Pulse Ox O2 Del Method 02/04/25 16:20 64 02/04/25 15:49 36.5 C 16 L 18 118/64 96 Room Air 02/04/25 11:33 36.7 C 44 L 18 131/70 96 Room Air 02/04/25 10:47 54 L 02/04/25 07:50 36.3 C L 47 L 16 115/75 98 Room Air Laboratory Results CBC, BMP, magnesium reviewed ECG Additional Comments: ECG from 02/04 reviewed shows sinus rhythm with frequent PVCs PG Care Time/CCT Total # of Minutes Spent Total Time Spent with Patient: Total time spent is greater than 50% in coordination of care (as documented) at patient's floor/unit and/or counseling patient: Coding Level of Care Code 92465 SUB INP/OBS CARE 2/35MIN Diagnoses Status post fall Z91.81 Atrial fibrillation with RVR I48.91 Acute kidney injury N17.9 CLL (chronic lymphocytic leukemia) C91.10
[2025-02-04] MEDS ORDERED: Nursing to Pharmacy Communication SCH (18:15)
[2025-02-04] MEDS: MAGNESIUM CHLORIDE W/CALCIUM 64MG DELAYED REL TAB PO SCH (20:29)
--- NOTE | 2025-02-05 06:30 | Electrocardiogram Report ---
Test Reason : Blood Pressure : */* mmHG Vent. Rate : 64 BPM Atrial Rate : 75 BPM P-R Int : 188 ms QRS Dur : 96 ms QT Int : 446 ms P-R-T Axes : 71 -21 80 degrees QTcB Int : 460 ms Sinus rhythm with frequent , and consecutive Premature ventricular complexes Low voltage QRS Inferior infarct (cited on or before 31-Jan-2025) Abnormal ECG When compared with ECG of 31-Jan-2025 17:50, Sinus rhythm has replaced Atrial fibrillation Vent. rate has decreased by 61 bpm Confirmed by Jh Patterson ([id number]) on 02/05/2025 6:30:09 AM Referred By: REFERRED SELF Confirmed By: Jh Patterson
[2025-02-05 08:03] LABS: Anion Gap 7.0 (3-11); Blood Urea Nitrogen 32.0 mg/dl (6-23); Calcium 8.6 mg/dl (8.6-10.3); Carbon Dioxide 25.0 mmol/L (21-32); Chloride 105.0 mmol/L (98-107); Creatinine Clr Calc Pharmacy 85.4 ml/min; Glucose 123.0 mg/dl (70-99(Fasting)); Hematocrit (blood only) 35.7 % (42.0-52.0); Hemoglobin 11.4 g/dL (14.0-18.0); Magnesium 1.5 mg/dl (1.7-2.4); Mean Corpuscular Hemoglobin 30.6 pg (25.0-34.0); Mean Corpuscular Volume 95.7 fL (80.0-100.0); Platelet Count 310 K/uL (130-400); Potassium 4.5 mmol/L (3.5-5.1); RDW Standard Deviation 65.6 fL (36.4-46.3); Red Blood Count 3.73 M/uL (4.70-6.10); Sodium 137.0 mmol/L (136-145); White Blood Count 79.64 K/ul (4.8-10.8)
[2025-02-05 08:47] LABS: Immature Granulocytes # (auto) 0.73 K/uL (0.01-0.20); Immature Granulocytes % (auto) 0.9 %; Smudge Cells Present
[2025-02-05] MEDS: MAGNESIUM SULFATE / D5W 1 GM/100 ML BAG IV SCH (09:00)
--- NOTE | 2025-02-05 12:22 | Cardiology Progress Note ---
Date of Service February 05, 2025 Assessment & Plan (1) Paroxysmal atrial fibrillation: (2) HTN (hypertension): Plan ASSESSMENT/PLAN: 1. Paroxysmal atrial fibrillation: Asymptomatic. Converted 02/04/2025 just before 1 AM after initiation of oral amiodarone. He has been on therapeutic anticoagulation chronically. He preferred medical therapy versus procedures. Rate control may be challenging with history of sinus bradycardia. We have discussed potential adverse reactions of amiodarone. Continue amiodarone but reduce to 200 mg daily due to bradycardia at times on telemetry. Monitor TSH and transaminase levels. There are documented episodes of bradycardia during the day based on vital sign evaluation however it is likely pulse deficit given PVCs. Metoprolol discontinued as his heart rate may further decline as amiodarone load continues. Monitor CBC while on anticoagulation therapy. 2. CLL: He states that he refuses treatment. Defer to primary hospitalist service. 3. Hypertension: Blood pressure acceptable. Emilio discontinued this hospital stay to avoid bradycardia while administering amiodarone. 4. Disposition: Cardiology will sign off at this time. Cardiology appointment scheduled on 02/23/2025 at 8:15 AM. Patient care communicated with primary hospitalist, Dr. Kaplan. Admission and Anticipated Discharge Date Admission Date: January 28, 2025 Subjective Patient seen this morning. He feels well. He denies chest pain, shortness of breath, syncope, near syncope, palpitations, or edema. He tolerated ambulating in the hallway yesterday without symptoms. He was unaccompanied. Physical Exam Physical Exam: Gen.: No acute distress. Alert and oriented. HEENT: Anicteric sclera. Neck: No JVD. Cardiac: Regular with ectopy. Normal S1-S2. No murmurs, rubs, or gallops. Pulmonary: Decreased breath sounds bilaterally, but otherwise clear to auscultation bilaterally without wheezes, rales, or rhonchi. Abdomen: Soft, nontender, nondistended, with normoactive bowel sounds. No bruits noted. Extremities: 2+ radial pulses bilaterally. 2+ posterior tibialis pulses bilaterally. Trace bilateral lower extremity edema, more prominent in the left compared to the right. No cyanosis. Results & Data Vital Signs (Past 12 Hours) Vital Signs Temp Pulse Pulse Resp BP Pulse Ox O2 Del Method 02/05/25 08:00 Room Air 02/05/25 08:00 36.4 C L 51 L 10 L 117/75 96 Room Air 02/05/25 05:57 50 L 02/05/25 03:45 36.5 C 47 L 18 110/68 95 Room Air Laboratory Results Laboratory Results - last 24 hr 02/04/25 02/04/25 02/05/25 16:44 20:01 07:00 WBC 79.64 H* RBC 3.73 L Hgb 11.4 L Hct 35.7 L MCV 95.7 MCH 30.6 MCHC 31.9 L RDW Std Deviation 65.6 H RDW Coeff of Jackie 18.9 H Plt Count 310 MPV 10.1 Immature Gran % (Auto) 0.9 Neut % (Auto) 9.9 Lymph % (Auto) 85.5 [place] % (Auto) 2.9 Eos % (Auto) 0.6 Baso % (Auto) 0.2 Neut # (Auto) 7.94 H Lymph # (Auto) 68.06 H [place] # (Auto) 2.27 H Eos # (Auto) 0.47 Baso # (Auto) 0.17 Immature Gran # (Auto) 0.73 H Absolute Nucleated RBC 0.02 Smudge Cells Present Sodium 137 Potassium 4.5 Chloride 105 Carbon Dioxide 25 Anion Gap 7 BUN 32 H Creatinine 0.76 Est Cr Clr Drug Dosing 85.4 eGFR 93.15 BUN/Creatinine Ratio 42.1 H Glucose 123 H POC Glucose 94 93 Calcium 8.6 Magnesium 1.5 L 02/05/25 02/05/25 07:44 12:16 WBC RBC Hgb Hct MCV MCH MCHC RDW Std Deviation RDW Coeff of Jackie Plt Count MPV Immature Gran % (Auto) Neut % (Auto) Lymph % (Auto) [place] % (Auto) Eos % (Auto) Baso % (Auto) Neut # (Auto) Lymph # (Auto) [place] # (Auto) Eos # (Auto) Baso # (Auto) Immature Gran # (Auto) Absolute Nucleated RBC Smudge Cells Sodium Potassium Chloride Carbon Dioxide Anion Gap BUN Creatinine Est Cr Clr Drug Dosing eGFR BUN/Creatinine Ratio Glucose POC Glucose 124 H 113 H Calcium Magnesium Diagnostic Findings Telemetry personally reviewed: Sinus rhythm with sinus bradycardia overnight. Labs reviewed and notable for normal renal function, normal potassium, hypomagnesemia, mild anemia. Medications Administered Current Inpatient Medications Acetaminophen (Acetaminophen 500 Mg Tab) 1,000 mg PO Q8H PRN PRN Reason: Pain or Fever Stop: 03/02/25 19:44 Last Admin: 02/02/25 09:36 Dose: 1,000 mg Amiodarone HCl (Amiodarone 200 Mg Tab) 200 mg PO DAILY [facility] Stop: 03/14/25 08:59 Amiodarone HCl (Amiodarone 200 Mg Tab) 400 mg PO BIDM [facility] Stop: 02/11/25 08:01 Last Admin: 02/05/25 09:00 Dose: 400 mg Apixaban (Apixaban 5 Mg Tablet) 5 mg PO BID [facility] Stop: 02/27/25 22:10 Last Admin: 02/05/25 09:12 Dose: 5 mg Ascorbic Acid (Ascorbic Acid 500 Mg Tab) 1,000 mg PO QAM [facility] Stop: 02/28/25 08:59 Last Admin: 02/05/25 09:13 Dose: 1,000 mg Cyanocobalamin (Cyanocobalamin (B-12) 500 Mcg Tablet) 1,000 mcg PO QAM [facility] Stop: 02/28/25 08:59 Last Admin: 02/05/25 09:13 Dose: 1,000 mcg Dextrose (Dextrose 50% 50 Ml Syringe) 25 - 50 ml IV UD PRN; Protocol PRN Reason: Hypoglycemia Protocol Stop: 02/27/25 22:10 Empagliflozin (Empagliflozin 10 Mg Tab) 10 mg PO DAILY [facility] Stop: 03/02/25 08:59 Last Admin: 02/05/25 09:14 Dose: 10 mg Glucagon (Glucagon For Inj 1 Mg Vial) 1 mg SQ UD PRN; Protocol PRN Reason: Hypoglycemia Protocol Stop: 02/27/25 22:10 Glucose (Glucose 40% Gel 15 Gm Tube) 15 - 30 gm PO UD PRN; Protocol PRN Reason: Hypoglycemia Protocol Stop: 02/27/25 22:10 Glucose (Glucose 10 Tab/Tube) 4 - 8 tab PO UD PRN; Protocol PRN Reason: Hypoglycemia Protocol Stop: 02/27/25 22:10 Insulin Aspart (Insulin Aspart Per Unit Charge) 0 units SC ACHS [facility] Stop: 02/27/25 22:10 Last Admin: 02/05/25 08:59 Dose: 4 units Magnesium Chloride (Magnesium Chloride W/Calcium 64mg Delayed Rel Tab) 64 mg PO BID [facility] Stop: 03/06/25 20:59 Last Admin: 11/20/25 09:14 Dose: 64 mg Metformin HCl (Metformin Hcl 500 Mg Tab) 1,000 mg PO BIDM [facility] Stop: 03/02/25 08:59 Last Admin: 02/05/25 09:00 Dose: 1,000 mg Miscellaneous (Carbohydrates For Hypoglycemia ) 15 - 30 gm PO UD PRN PRN Reason: Hypoglycemia Protocol Stop: 02/27/25 22:10 Multivitamins (Multivitamin Tab) 1 tab PO QAM [facility] Stop: 02/28/25 08:59 Last Admin: 02/05/25 09:14 Dose: 1 tab 3 In 1 Right Eye Drops: Non-Formulary Patient's Own Med 1 each OPR BID [facility] Stop: 02/28/25 20:59 Last Admin: 02/05/25 09:15 Dose: 1 drops Ondansetron HCl (Ondansetron Inj 2 Mg/Ml 2 Ml Vial) 4 mg IV Q6H PRN PRN Reason: Nausea Stop: 02/27/25 22:10 Pantoprazole Sodium (Pantoprazole 40 Mg Tab) 40 mg PO DAILY [facility] Stop: 03/01/25 08:59 Last Admin: 02/05/25 09:15 Dose: 40 mg Simvastatin (Simvastatin 10 Mg Tab) 10 mg PO HS [facility] Stop: 02/27/25 22:10 Last Admin: 02/04/25 20:29 Dose: 10 mg Vitamin D (Cholecalciferol 25 Mcg (1000 Units) Tab) 25 mcg PO QAM [facility] Stop: 02/28/25 08:59 Last Admin: 02/05/25 09:13 Dose: 25 mcg PG Care Time/CCT Total # of Minutes Spent Total Time Spent with Patient: Total time spent is greater than 50% in coordination of care (as documented) at patient's floor/unit and/or counseling patient: Coding Level of Care Code 94615 SUB INP/OBS CARE 3/50MIN Diagnoses Paroxysmal atrial fibrillation I48.0 HTN (hypertension) I10
--- NOTE | 2025-02-05 15:08 | Hospitalist Progress Note ---
Date of Service February 05, 2025 Assessment & Plan (1) Status post fall: (2) Atrial fibrillation with RVR: (3) Acute kidney injury: (4) CLL (chronic lymphocytic leukemia): Plan This patient is a 74-year-old male with a history of CLL, paroxysmal atrial fibrillation on Eliquis, HTN, HLD, DM2, OA, vitamin D deficiency, who presents with diarrhea, dehydration, RAFAEL, hypomagnesemia, a fall with bilateral wrist sprains and right shoulder injury. He was also found to have rapid atrial fibrillation. #Fall/bilateral wrist sprain/right shoulder contusion-fall with FOOSH injury- wrist pain is now completely resolved. Bilateral wrist x-rays and forearm x-ray without fracture. No tenderness to palpation over snuffbox -sprains treated by previous hospitalist with steroids. Right shoulder with decreased range of motion, pain and anterior tenderness to palpation, positive Dunn-suspect rotator cuff tear with subacromial inflammation but this is also now improving. Fall likely precipitated by hypovolemia and orthostasis which is now resolved - Continue Tylenol as needed - Needs rehab placement once medically stable #Dehydration/hypotension/diarrhea/hypomagnesemia/RAFAEL/hyperkalemia-all likely secondary to diarrhea prior to admission. He was given fluids, IV magnesium replacement. Blood pressures and diarrhea now resolved. Magnesium remains low despite replacement for many days of IV replacement. He is on a PPI which may be contributing to hypomagnesemia. Renal function normalized. He was hyperkalemic for 2 days which was treated with Lokelma, low potassium diet, and 2 rounds of calcium gluconate/insulin/D50. Suspect hyperkalemia could be from significant leukorrhea which is now improving after steroids were stopped. - Replace magnesium again with 2 g of IV magnesium sulfate - Discontinue Protonix-he was not even on this at home - Holding home lisinopril, but metformin was resumed #Paroxysmal atrial fibrillation with RVR-remained with uncontrolled heart rates 150s and 160s for the first week of his admission-he was loaded with digoxin on 02/01 but this was discontinued given his hyperkalemia and hypomagnesemia. He was fairly asymptomatic with his atrial fibrillation. His metoprolol dose was also increased. I suspect the high doses of steroids may also have contributed to the increased heart rates-these were stopped. He converted to sinus rhythm after starting on oral amiodarone load on 02/03. He is now in sinus bradycardia with rates in the 40s to 60s. Echo with LVEF 60-65%, moderate LVH, mildly dilated thoracic root at 4.2 cm - Appreciate Cardiology consult-have now signed off and recommend follow-up with cardiology as an outpatient in 2-4 weeks - Discontinued home metoprolol due to bradycardia while on amiodarone load - Reduce amiodarone to 200 mg daily due to ongoing bradycardia - Monitor TSH, LFTs as outpt while on amiodarone - Continue to monitor on telemetry - Replete electrolytes-giving IV magnesium, follow BMP and magnesium - Continue Eliquis 5 mg p.o. twice daily #HTN/HLD-BPs are normal - Discontinued metoprolol for bradycardia - Continue Jardiance which has some antihypertensive effect - Holding home lisinopril but likely will be able to resume now that RAFAEL and hyperkalemia are resolved #DM2-blood glucose was hyperglycemic with steroids given on admission and now improving. HgbA1c well-controlled at 6.1% - Continue metformin, NovoLog supplemental insulin, Jardiance #CLL-patient follows with hematology and is not currently on any treatment. His WBC count has jumped to 100 likely due to previous corticosteroid use. Steroids were stopped and WBC count now decreasing back to 79K. Uric acid, LDH, and phosphorus are all normal - Follow CBC - Patient reports that he would not want any treatment for this in the future #Vitamin D deficiency-no acute issues - Continue supplemental vitamin D DVT prophylaxis-Eliquis Disposition-[facility], awaiting insurance Auth for bed at [facility] Admission and Anticipated Discharge Date Admission Date: January 28, 2025 Subjective Patient feeling well today and has no complaints. Awaiting placement. Telemetry with normal sinus rhythm and frequent PVCs with rates in the 40s to 60s I discussed his care with cardiology Physical Exam Constitutional: WD/WN, vitals as above Respiratory: normal respiratory effort, lungs clear to auscultation Cardiovascular: Rate/Rhythm: regular rhythm and + bradycardic Heart Sounds: no murmur Extremities: + edema (Trace ankle edema-chronic) Gastrointestinal (Abdomen): normal bowel sounds, soft, nontender, no hepatosplenomegaly Psychiatric: A+Ox3, euthymic affect Results & Data Results & Data Vital Signs (Past 12 Hours) Vital Signs Temp Pulse Pulse Resp BP Pulse Ox O2 Del Method 02/05/25 13:08 61 02/05/25 12:21 36.3 C L 47 L 12 117/77 96 Room Air 02/05/25 08:00 Room Air 02/05/25 08:00 36.4 C L 51 L 10 L 117/75 96 Room Air 02/05/25 05:57 50 L 02/05/25 03:45 36.5 C 47 L 18 110/68 95 Room Air Laboratory Results CBC, BMP, magnesium reviewed PG Care Time/CCT Total # of Minutes Spent Total Time Spent with Patient: Total time spent is greater than 50% in coordination of care (as documented) at patient's floor/unit and/or counseling patient: Coding Level of Care Code 24379 SUB INP/OBS CARE 2/35MIN Diagnoses Status post fall Z91.81 Atrial fibrillation with RVR I48.91 Acute kidney injury N17.9 CLL (chronic lymphocytic leukemia) C91.10
[2025-02-05] MEDS ORDERED: AMIODARONE 200 MG TAB PO SCH (17:00)
[2025-02-06 06:28] LABS: Hematocrit (blood only) 35.7 % (42.0-52.0); Hemoglobin 11.7 g/dL (14.0-18.0); Mean Corpuscular Hemoglobin 31.5 pg (25.0-34.0); Mean Corpuscular Volume 96.0 fL (80.0-100.0); Platelet Count 308 K/uL (130-400); RDW Standard Deviation 65.4 fL (36.4-46.3); Red Blood Count 3.72 M/uL (4.70-6.10); White Blood Count 78.48 K/ul (4.8-10.8)
[2025-02-06 06:41] LABS: Anion Gap 6.0 (3-11); Blood Urea Nitrogen 29.0 mg/dl (6-23); Calcium 8.9 mg/dl (8.6-10.3); Carbon Dioxide 27.0 mmol/L (21-32); Chloride 105.0 mmol/L (98-107); Creatinine Clr Calc Pharmacy 69.0 ml/min; Glucose 103.0 mg/dl (70-99(Fasting)); Magnesium 1.7 mg/dl (1.7-2.4); Potassium 4.6 mmol/L (3.5-5.1); Sodium 138.0 mmol/L (136-145)
[2025-02-06 08:07] LABS: Immature Granulocytes # (auto) 0.70 K/uL (0.01-0.20); Immature Granulocytes % (auto) 0.9 %
[2025-02-06 08:37] VITALS: RESP 20; TEMP 97.7; O2SAT 96
[2025-02-06] MEDS: AMIODARONE 200 MG TAB PO SCH (08:41)
--- NOTE | 2025-02-06 11:56 | Discharge Summary ---
Discharge Summary Date of Service February 06, 2025 Principal Dx & Hospital Course #1 = Principal Diagnosis (1) Status post fall: (2) Atrial fibrillation with RVR: (3) Acute kidney injury: (4) CLL (chronic lymphocytic leukemia): Plan This patient is a 74-year-old male with a history of CLL, paroxysmal atrial fibrillation on Eliquis, HTN, HLD, DM2, OA, vitamin D deficiency, who presents with diarrhea, dehydration, RAFAEL, hypomagnesemia, a fall with bilateral wrist sprains and right shoulder injury. He was also found to have rapid atrial fibrillation. #Fall/bilateral wrist sprain/right shoulder contusion-fall with FOOSH injury- wrist pain is now completely resolved. Bilateral wrist x-rays and forearm x-ray without fracture. No tenderness to palpation over snuffbox -sprains treated by previous hospitalist with steroids. Right shoulder with decreased range of motion, pain and anterior tenderness to palpation, positive Dunn-suspect rotator cuff tear with subacromial inflammation but this is also now improving. Fall likely precipitated by hypovolemia and orthostasis which is now resolved - Continue Tylenol as needed - Needs rehab placement once medically stable #Dehydration/hypotension/diarrhea/hypomagnesemia/RAFAEL/hyperkalemia-all likely secondary to diarrhea prior to admission. He was given fluids, IV magnesium replacement. Blood pressures and diarrhea now resolved. Magnesium remained low despite replacement for many days of IV replacement. Now improved. He was placed on a PPI at admission (for unknown reason) which may be contributing to hypomagnesemia-this was stopped. Renal function normalized. He was hyperkalemic for 2 days which was treated with Lokelma, low potassium diet, and 2 rounds of calcium gluconate/insulin/D50. Suspect hyperkalemia could be from significant leukorrhea which is now improving after steroids were stopped. - continue SlowMag 64mg po bid - discontinued home lisinopril as BPs normal without it #Paroxysmal atrial fibrillation with RVR-remained with uncontrolled heart rates 150s and 160s for the first week of his admission-he was loaded with digoxin on 02/01 but this was discontinued given his hyperkalemia and hypomagnesemia. He was fairly asymptomatic with his atrial fibrillation. His metoprolol dose was also increased. I suspect the high doses of steroids may also have contributed to the increased heart rates-steroids were stopped. He converted to sinus rhythm after starting on oral amiodarone load on 02/03. He is now in sinus bradycardia with rates in the 40s to 60s. Echo with LVEF 60-65%, moderate LVH, mildly dilated thoracic root at 4.2 cm - Appreciate Cardiology consult-have now signed off and recommend follow-up with cardiology as an outpatient in 2-4 weeks - Discontinued home metoprolol due to bradycardia while on amiodarone load - continue amiodarone to 200 mg daily - Monitor TSH, LFTs as outpt while on amiodarone - Continue Eliquis 5 mg p.o. twice daily #HTN/HLD-BPs are normal - Discontinued metoprolol for bradycardia while in sinus rhythm on amiodarone - Continue Jardiance which has some antihypertensive effect - discontinued home lisinopril for RAFAEL, hyperkalemia, and normal BPs #DM2-blood glucose was hyperglycemic with steroids given on admission and now improving. HgbA1c well-controlled at 6.1% - Continue metformin, Jardiance #CLL-patient follows with hematology and is not currently on any treatment. His WBC count has jumped to 100 likely due to previous corticosteroid use. Steroids were stopped and WBC count now decreasing back to 78K. Uric acid, LDH, and phosphorus are all normal - Follow CBC as outpt - Patient reports that he would not want any treatment for this in the future #Vitamin D deficiency-no acute issues - Continue supplemental vitamin D DVT prophylaxis-Eliquis Disposition-medically stable for discharge to [facility] facility at [facility] Care Notes For Next Care Provider Medication Changes From Visit see med list Admission HPI Per Admitting Provider The patient is a 74-year-old male with past medical history including CLL, atrial fibrillation, ventricular bigeminy, history of A-fib with RVR, vitamin D deficiency, SCC of skin, hyperlipidemia, hypertension, knee osteoarthritis, and diabetes mellitus type 2. He presents to the emergency department with complaint of feeling lightheaded, dizzy, and tripped and fell backwards. He denies hitting his head he reports breaking his fall with his hands, and was primarily complaining of bilateral wrist pain and right knee pain. X-rays in the emergency department revealed no acute findings on x-ray of right wrist, left wrist, and right forearm. Abnormal laboratories: WBC stable at 50.89, glucose 254, creatinine 1.41, magnesium 1.4. EKG showed atrial fibrillation with RVR, for which from the ED he received Lopressor 5 mg IV, and 2 normal saline boluses of 500 mL each. He also received Tylenol 1 g IV for bilateral wrist pain. The patient was referred for evaluation for admission to the [facility] service due to symptoms of generalized fatigue, recent fall, atrial fibrillation with RVR, and hypomagnesemia. Discharge Exam Constitutional WD/WN, vitals as above Respiratory normal respiratory effort, lungs clear to auscultation Cardiovascular Rate/Rhythm: regular rhythm and + bradycardic Heart Sounds: no murmur Extremities: + edema (Trace ankle edema-chronic) Gastrointestinal (Abdomen) normal bowel sounds, soft, nontender, no hepatosplenomegaly Psychiatric A+Ox3, euthymic affect Discharge Plan Discharge Items Patient Disposition: Transfer Care Home Fac Reason For Visit: ATRIAL FIB WITH RVR, DEHYDRATION, HYPOMAG Discharge Diagnosis: Dehydration Acute kidney injury Hypomagnesemia Rapid atrial fibrillation Bilateral wrist sprain and right shoulder contusion Condition on Discharge: Good Activity: As commented below Lifting: Gradually increase as tolerated Bathing: No limitations Exercise/Sports: Gradually increase as tolerated Non-emergency contact: Primary Care Provider and Heel Cover Splitter Call non-emergency contact if: you have any medication questions and your symptoms worsen Follow-up/Referrals: Cristofer Rock MD [Primary Care Provider] - (Follow-up within 2 weeks after discharge from rehab ) Jh Patterson MD [Physician] - (Follow-up in 2 to 4 weeks-this appointment is to be arranged by cardiology ) Diet: Heart Healthy Addtl Attending Provider Instructions: You were admitted after having low blood pressure which caused you to have a fall and an acute kidney injury. You are also in rapid atrial fibrillation. You sustained injuries to both of your wrist and your right shoulder which are now improved. You were hydrated with IV fluids. You were started on medication which helped to convert your heart to a normal rhythm. Please follow-up with the bar tacker sewing machine after discharge for your atrial fibrillation. You will need physical and Occupational Therapy for rehabilitation. It was a pleasure taking care of you! If you have any questions about your care before your hospital follow-up visit with your primary care provider, please call [phone] and ask to be transferred to the [facility] Medicine office. Sincerely, Akila Kaplan M.D. Pending Studies at Discharge: No Stand-Alone Forms: My [facility] Skilled Items Patient informed of condition?: Yes DNR: Yes Discharge Level of Care: Skilled Communicable Disease: No Discharge Prognosis: Improving Lines: None Urinary Catheter: No Medications and DC Order Prescriptions: New amiodarone 200 mg Tablet 200 mg PO DAILY Qty: 30 0RF magnesium chloride [Mag 64] 64 mg Tablet,Delayed Release (Dr/Ec) 64 mg PO BID Qty: 60 0RF Continued (DME) pen needle, diabetic 32 gauge x 5/32" needle See Dose Instructions .ROUTE .MEDSUPPLY Qty: 90 3RF Dose Instruction: As directed Rx Instructions: Use at Night with Tresiba simvastatin 10 mg tablet 10 mg PO HS Qty: 90 3RF (DME) blood-glucose meter [OneTouch Verio Flex meter] Misc See Rx Instructions .Route Qty: 1 0RF Rx Instructions: Test blood sugars BID Eliquis 5 mg tablet 5 mg PO BID Qty: 60 5RF metformin 1,000 mg tablet 1,000 mg PO BID Qty: 180 3RF ascorbic acid (vitamin C) 500 mg capsule 2 cap PO QAM multivitamin [Daily Multi-Vitamin] tablet 1 tab PO QAM cyanocobalamin (vitamin B-12) 1,000 mcg tablet 1,000 mcg PO QAM (DME) OneTouch Verio test strips Strip See Rx Instructions .ROUTE .MEDSUPPLY Dose Instruction: As directed Rx Instructions: Test blood sugar 2 x time daily acetaminophen [Tylenol Extra Strength] 500 mg tablet 250 mg PO BID cholecalciferol (vitamin D3) [Vitamin D3] 1,000 unit Capsule 1,000 unit PO QAM calcium carbonate [Tums] 300 mg (750 mg) tablet,chewable 600 mg PO HS PRN (Reason: Heartburn) insulin glargine [Lantus Solostar U-100 Insulin] 100 unit/mL (3 mL) insulin pen 12 unit subcut HS Jardiance 10 mg tablet 10 mg PO QAM Rx Instructions: Take 1 tablet by mouth once daily 3 In 1 Eye Drop Post Cataracts 1 drp ophthalmic (eye) DIRECTED Rx Instructions: 3 IN 1 EYE DROP POST CATARACT SURGERY. Discontinued lisinopril 20 mg tablet 20 mg PO DAILY Qty: 90 3RF metoprolol tartrate 25 mg tablet 25 mg PO BID Qty: 180 3RF Discharge Orders: Discharge Order (Routine); Ordered 02/06/25 Ordered By: Akila Garcia/Other Patient Handouts: Managing Type 2 Diabetes Admission Data Admit Date/Time: 01/28/25 20:25 Attending Provider: Akila Kaplan Admit Provider: Cresencio Frost Primary Care Provider: Cristofer Rock Other Providers: Cresencio Frost; [facility]; [facility]; Jh Patterson; Ty Mercado at [facility] Stay Data Consultations 01/28/25 18:15 ED Decision to Admit Stat 02/03/25 07:26 Consult Cardiology Routine Diagnostic Imagining Performed ECHO Pending Results Patient Have Any Pending Studies at Discharge: No Discharge Instructions Given to Patient (Per Discharging Provider) You were admitted after having low blood pressure which caused you to have a fall and an acute kidney injury. You are also in rapid atrial fibrillation. You sustained injuries to both of your wrist and your right shoulder which are now improved. You were hydrated with IV fluids. You were started on medication which helped to convert your heart to a normal rhythm. Please follow-up with the bar tacker sewing machine after discharge for your atrial fibrillation. You will need physical and Occupational Therapy for rehabilitation. It was a pleasure taking care of you! If you have any questions about your care before your hospital follow-up visit with your primary care provider, please call [phone] and ask to be transferred to the [facility] Medicine office. Sincerely, Akila Kaplan M.D. Total Time Total Time Spent Total Time Spent (In Minutes): 35 min Total Time Includes: Examination of the Patient, Discharge Planning and Medication Reconciliation Coding Level of Care Code 29027 INP/OBS DISCH >30 MIN Diagnoses Status post fall Z91.81 Atrial fibrillation with RVR I48.91 Acute kidney injury N17.9 CLL (chronic lymphocytic leukemia) C91.10
[2025-02-06 14:42] VITALS: BP 130/80
[2025-02-06 15:17] VITALS: PULSE 69
[2025-02-12] MEDS ORDERED: AMIODARONE 200 MG TAB PO SCH (09:00)
== END 2025-02-06 17:18 | DRG 683 ==
LOC: ED 16:50 → 2S 20:25 → SUATTDRO 20:25 → 2S 22:06 → 2N 02-02 21:20
DX: S63.501A Unspecified sprain of right wrist, initial encounter; E83.42 Hypomagnesemia; E55.9 Vitamin D deficiency, unspecified; Z79.4 Long term (current) use of insulin; E11.65 Type 2 diabetes mellitus with hyperglycemia; S40.011A Contusion of right shoulder, initial encounter; Z66 Do not resuscitate; I10 Essential (primary) hypertension; Y92.89 Other specified places as the place of occurrence of the external cause; Z88.0 Allergy status to penicillin; M19.031 Primary osteoarthritis, right wrist; C91.10 Chronic lymphocytic leukemia of B-cell type not having achieved remission; E86.0 Dehydration; K52.9 Noninfective gastroenteritis and colitis, unspecified; W18.30XA Fall on same level, unspecified, initial encounter; M19.032 Primary osteoarthritis, left wrist; N17.9 Acute kidney failure, unspecified; S63.502A Unspecified sprain of left wrist, initial encounter; I48.0 Paroxysmal atrial fibrillation; E78.5 Hyperlipidemia, unspecified